=== PATIENT | male | born 1945 | race Caucasian/White ===

== ENCOUNTER 2016-10-10 18:12 | Inpatient (IN) | payer MEDICARE, MEDICAID ==
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
[2016-10-10 19:22] LABS: CHLORIDE,CL 106 mmol/L (98-115); SODIUM,NA 138 mmol/L (136-145)
[2016-10-10] MEDS ORDERED: methylPREDNISolone Sodium Succinate 125 MG/2 ML SDV IVPUSH ONE (19:26)
[2016-10-10] MEDS ORDERED: methylPREDNISolone Sodium Succinate 125 MG/2 ML SDV ONE (19:28)
[2016-10-10] MEDS ORDERED: cefTRIAXone 1 GM Vial IVPUSH ONE ×2 (19:39→20:14)
[2016-10-10] MEDS ORDERED: Azithromycin 500 MG in Sodium Chloride 0.9% 250 ML IV ONE ×2 (19:39→20:16)
[2016-10-10] MEDS ORDERED: Sodium Chloride 0.9% 1,000 ML IV ONE ×2 (19:41→20:24)
[2016-10-10] MEDS ORDERED: D5 1/2 NS w/ 20 mEq/L KCl 1,000 ML IV SCH (19:45)
[2016-10-10 19:47] LABS: BASE EXCESS ARTERIAL 5 mmol/L (-2-3); O2 DELIVERY DEVICE NASAL CANNULA; O2 SATURATION ARTERIAL 97 % (95-98); PCO2 ARTERIAL 44 mmHG (35-45); PO2 ARTERIAL 88 mmHG (80-105)
[2016-10-10] MEDS ORDERED: Albuterol HFA 18 Gm Inhaler INH PRN (20:05)
[2016-10-10] MEDS ORDERED: Albuterol/Ipratropium 4 GM Inhalation Spray INH PRN (20:05)
[2016-10-10] MEDS ORDERED: Nitroglycerin 0.4 MG Tab.SL SL PRN ×2 (20:05→22:13)
[2016-10-10] MEDS ORDERED: Docusate Sodium 100 MG Cap PO PRN (20:05)
[2016-10-10] MEDS ORDERED: Diphtheria,Pertussis(Acell),Tetanus Vaccine 0.5 ML SDV IM ONE (20:25)
[2016-10-10] MEDS: Carboxymethylcellulose Sodium 0.5% Ophth Soln 15 ML Bottle EYEBOTH SCH (21:41)
[2016-10-10] MEDS: tiZANidine 4 MG Tab PO SCH (21:42)
[2016-10-10] MEDS: traZODone 50 MG Tab PO SCH (21:42)
[2016-10-10] MEDS: Albuterol/Ipratropium 3.0-0.5 MG/3 ML Neb Soln NEB PRN (21:42)
[2016-10-10] MEDS: Sertraline 50 MG Tab PO SCH (21:42)
[2016-10-10] MEDS: Thiamine 100 MG Tab PO SCH (21:42)
[2016-10-10] MEDS: Montelukast 10 MG Tab PO SCH (21:42)
[2016-10-10] MEDS ORDERED: EPINEPHrine 1:10,000 1 MG/10 ML Syringe IVPUSH PRN (22:13)
[2016-10-10] MEDS ORDERED: Lidocaine 2% 100 MG/5 ML Syringe IVPUSH PRN (22:13)
[2016-10-10] MEDS ORDERED: Atropine 0.1 MG/ML 10 ML Syringe IVPUSH PRN (22:13)
[2016-10-10] MEDS: D5 1/2 NS w/ 20 mEq/L KCl 1,000 ML IV SCH (22:52)
[2016-10-10] MEDS: Acetaminophen 325 MG Tab PO PRN (22:53)
[2016-10-11] MEDS: Albuterol/Ipratropium 3.0-0.5 MG/3 ML Neb Soln NEB PRN (05:37)
[2016-10-11] MEDS: D5 1/2 NS w/ 20 mEq/L KCl 1,000 ML IV SCH (08:54)
[2016-10-11] MEDS ORDERED: Fluticasone/Vilanterol 200 MCG/25 MCG Inhalation Powder Kit of 14 IH SCH (09:00)
[2016-10-11] MEDS ORDERED: Calcium Citrate/Vitamin D3 315 MG-250 Unit Tab PO SCH (09:00)
[2016-10-11] MEDS ORDERED: Umeclidinium Bromide 62.5 MCG 30 Puff Inhaler IH SCH (09:00)
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
[2016-10-11] MEDS: Carboxymethylcellulose Sodium 0.5% Ophth Soln 15 ML Bottle EYEBOTH SCH ×3 (09:28→21:16)
[2016-10-11] MEDS: Calcium Citrate/Vitamin D3 315 MG-250 Unit Tab PO SCH (09:28)
[2016-10-11] MEDS: Multivitamins with Minerals/Iron/Folic Acid/Lycopene Tab PO SCH (09:28)
[2016-10-11] MEDS: Magnesium Oxide 500 MG Tab PO SCH (09:28)
[2016-10-11] MEDS ORDERED: Nicotine Polacrilex 4 MG Gum BUCCAL PRN (09:34)
[2016-10-11] MEDS: tiZANidine 4 MG Tab PO SCH ×3 (09:38→21:16)
[2016-10-11] MEDS ORDERED: Nicotine 21 MG/24 Hr Patch TRDERM SCH (10:45)
[2016-10-11] MEDS: Nicotine 21 MG/24 Hr Patch TRDERM SCH (10:47)
[2016-10-11] MEDS: Acetaminophen 325 MG Tab PO PRN (10:47)
[2016-10-11] MEDS: Potassium Bicarbonate/Potassium Chloride 25 MEQ Tab.Eff PO SCH ×2 (12:10→21:16)
[2016-10-11] MEDS ORDERED: Ibuprofen 200 MG Tab PO PRN (13:57)
[2016-10-11] MEDS: Albuterol/Ipratropium 3.0-0.5 MG/3 ML Neb Soln NEB SCH ×3 (15:39→21:59)
[2016-10-11] MEDS ORDERED: cefTRIAXone 1 GM Vial IVPUSH SCH (16:00)
[2016-10-11] MEDS: traZODone 50 MG Tab PO SCH (21:16)
[2016-10-11] MEDS: Montelukast 10 MG Tab PO SCH (21:16)
[2016-10-11] MEDS: Sertraline 50 MG Tab PO SCH (21:16)
[2016-10-11] MEDS: Thiamine 100 MG Tab PO SCH (21:16)
[2016-10-11] MEDS: Magnesium Hydroxide 400 MG/5 ML Susp 30 ML Cup PO PRN (21:23)
[2016-10-12] MEDS: Albuterol/Ipratropium 3.0-0.5 MG/3 ML Neb Soln NEB SCH ×4 (04:47→15:35)
[2016-10-12 08:03] LABS: CHLORIDE,CL 104 mmol/L (98-115); SODIUM,NA 142 mmol/L (136-145)
[2016-10-12] MEDS: Multivitamins with Minerals/Iron/Folic Acid/Lycopene Tab PO SCH (08:33)
[2016-10-12] MEDS: Nicotine 21 MG/24 Hr Patch TRDERM SCH (08:33)
[2016-10-12] MEDS: Calcium Citrate/Vitamin D3 315 MG-250 Unit Tab PO SCH (08:33)
[2016-10-12] MEDS: Carboxymethylcellulose Sodium 0.5% Ophth Soln 15 ML Bottle EYEBOTH SCH ×2 (08:34→15:09)
[2016-10-12] MEDS: tiZANidine 4 MG Tab PO SCH ×2 (08:34→15:35)
[2016-10-12] MEDS: Magnesium Oxide 500 MG Tab PO SCH (08:34)
[2016-10-12] MEDS: Potassium Bicarbonate/Potassium Chloride 25 MEQ Tab.Eff PO SCH (08:35)
[2016-10-12] MEDS ORDERED: Bisacodyl 10 MG Supp RECTAL ONE (09:19)
[2016-10-12] MEDS: Magnesium Hydroxide 400 MG/5 ML Susp 30 ML Cup PO PRN (10:23)
--- NOTE | 2016-10-12 10:51 | PCM.PRNOTE ---
- Free Text/Narrative Note: Cast applied lower extremity. Patient was educated for non-weightbearing, report any neurovascular compromise such as pain, discoloration of toes, cold toes,. Patient was instructed not to get wet, cast integrity instructions were given. He is to report to the ED if any of the above symptoms. Low-dose Coumadin was given for DVT prophylaxis His INR will be assessed at the [facility]. Her cast was applied patient did have normal capillary refill less than 3 seconds right toes. She tolerated procedure well. Patient gave verbal consent for cast application. He will need cast on approximately 3-4 weeks.
[2016-10-12] MEDS ORDERED: Umeclidinium Bromide 62.5 MCG 30 Puff Inhaler IH ONE (11:30)
[2016-10-12] MEDS ORDERED: Fluticasone/Vilanterol 200 MCG/25 MCG Inhalation Powder Kit of 14 IH ONE (11:30)
[2016-10-12 11:57] VITALS: BP 136/86
[2016-10-12] MEDS ORDERED: Ondansetron 4 MG/2 ML SDV IVPUSH ONE (14:51)
--- NOTE | 2016-10-13 08:15 | DISCH ---
FINAL DIAGNOSES: 1. Fracture of the distal fibula, minimally displaced, intra-articular. 2. Chronic obstructive pulmonary disease exacerbation, mild. 3. Medication noncompliance. 4. Rule out pneumonia, this has been ruled out. 5. Hypokalemia, now normal. 6. Tobacco dependency, not ready to quit. 7. Hernia, right inguinal, recurrent. HISTORY: This 71-year-old gentleman with history of COPD, who was initially admitted to the ED to rule out pneumonia. He did have a low-grade fever. He presented also with a right foot and ankle pain after falling from the 3rd rung of the ladder about a day prior to coming in. He was on his trailer doing some roof work. He did state that he put ice on his right ankle, and he laid around for about a day. He had significant swelling in that right ankle, painful upon ambulation. Initial x-rays were negative for any fractures; however, due to significant swelling, a CT was performed. It did show him to have a minimally displaced acute intra-articular fracture of the distal fibula. Those actual films were visualized by myself and Dr. Swati Edwards. HOSPITAL COURSE: Hospital course went quite well. Upon admission to the ED, he had a normal lactic acid level. Blood cultures were drawn, they have been negative so far. Sputum culture obtained and still pending. He did have a low- grade fever when he came in, however, was afebrile throughout his hospital stay. Although his chest x-ray showed no obvious infiltrates, he did have mild neutropenia. No reactive thrombocytosis, and he had normal white count. No fever. No increased mucus production or color. Sats were 95% on 1 L. We did continue with Rocephin each day. He most likely does not need antibiotics on discharge. He did not have shortness of breath. Pharmacy consultation indicated patient was severely noncompliant with his COPD and other medication. He was not taking his Singulair, he was taking DuoNebs about four or five times a day. He was not taking Incruse or Prolia. He stated his Prolia gave him dizziness. He did have mild hypokalemia, this was corrected, it was normal on discharge. The patient is a 135 pack-year smoker. He was on home oxygen for a while; however, he had to give that up since he continued to smoke, and he is allergic to nicotine patch, and he also states nicotine gum makes his lip swell. He did have some mild constipation, milk of magnesia was given twice a day along with Dulcolax suppository on discharge. He did complain of a recurrent possible inguinal hernia. The patient did have surgery approximately 5 to 6 months ago. He stated one month ago, he was lifting, induced some coughing, and he thinks his hernia may be back. This will be followed up on outpatient basis. It appears non strangulating and non reducible. A cast was replaced on his right foot prior to discharge. Cast care instructions were given. Swelling is much improved to now minimal. He had good distal pulses. No complications. SIGNIFICANT LABS XRAYS AND CONSULTATION FINDINGS: CT right ankle: Minimally displaced acute intra-articular fracture distal fibula. Chest x-ray: Flattened diaphragms, no obvious infiltrates. ABG: PH 7.43, CO2 of 44, PO2 of 88, bicarb 29. DISCHARGE MEDICATIONS: Milk of magnesia 30 mL p.o. b.i.d. for constipation, Singulair 10 mg at bedtime, Incruse 62.5 mcg daily. He can take his DuoNebs q.8 hours p.r.n. and his Breo Ellipta. We will place on Coumadin 2 mg p.o. daily while in cast to prevent DVTs. INR will be assessed as an outpatient status. The patient was given specific instructions to report any increase in pain, shortness of breath, any increasing cough. We will see him next week for followup. FOLLOW-UP RECOMMENDATIONS: Assess INR, assess potassium, assess medication compliance. The patient is to bring all his medicines in. We will check the integrity of his cast. I assessed the willingness of the patient to quit smoking, he is not willing to quit smoking at this time. MEDICAL DECISION MAKIN minutes was spent on this discharge planning and process. /[id number]/MODL
== END 2016-10-12 16:00 | disposition home or self-care (01) | DRG 563 ==
LOC: KA.ED 18:12 → UNDOADMIN 19:42 → KA.MS 19:42
PROVIDERS: ADMIT Physician Assistant Surgical; ATTEND Family Medicine
PROC: 2W3QX2Z Immobilization of Right Lower Leg using Cast (ICD-10-PCS; principal; 2016-10-12)
DX: S82.831A Other fracture of upper and lower end of right fibula, initial encounter for closed fracture (principal); J44.1 Chronic obstructive pulmonary disease with (acute) exacerbation; R09.02 Hypoxemia; F17.210 Nicotine dependence, cigarettes, uncomplicated; Z91.128 Patient's intentional underdosing of medication regimen for other reason; Z91.14 Patient's other noncompliance with medication regimen; W11.XXXA Fall on and from ladder, initial encounter; Y92.029 Unspecified place in mobile home as the place of occurrence of the external cause; K40.91 Unilateral inguinal hernia, without obstruction or gangrene, recurrent; R50.9 Fever, unspecified; E87.6 Hypokalemia; F32.9 Major depressive disorder, single episode, unspecified; M19.90 Unspecified osteoarthritis, unspecified site; H54.7 Unspecified visual loss; K59.09 Other constipation; Z79.01 Long term (current) use of anticoagulants; Z88.1 Allergy status to other antibiotic agents; Z88.8 Allergy status to other drugs, medicaments and biological substances
CPT/HCPCS: 36415; 36600; 71020; 73610; 73620; 80048; 82803; 83605; 85025; 87040 ×2; 96374; 99285; J2930; 73700-RT; 81001; 87070; 87205; 90715; 94640; A9270-GY; J0456; J0696; J2405; J3480; J7030; J7050

== ENCOUNTER 2016-10-16 12:35 | Emergency (ER) | payer MEDICARE, MEDICAID ==
[2016-10-16 12:52] VITALS: BP 129/73
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
== END 2016-10-16 13:20 | disposition home or self-care (01) ==
LOC: KA.ED 12:35
DX: S82.831S Other fracture of upper and lower end of right fibula, sequela (principal); H54.7 Unspecified visual loss; J44.9 Chronic obstructive pulmonary disease, unspecified; F32.9 Major depressive disorder, single episode, unspecified; F17.210 Nicotine dependence, cigarettes, uncomplicated; M19.90 Unspecified osteoarthritis, unspecified site; Z79.899 Other long term (current) drug therapy; Z88.1 Allergy status to other antibiotic agents; Z91.048 Other nonmedicinal substance allergy status; Z79.01 Long term (current) use of anticoagulants; W11.XXXS Fall on and from ladder, sequela
CPT/HCPCS: 99282

== ENCOUNTER 2016-12-01 15:02 | Inpatient (IN) | payer MEDICARE, MEDICAID ==
[2016-12-01] MEDS ORDERED: Sodium Chloride 0.9% 5 ML Syringe FLUSH PRN (15:59)
[2016-12-01 16:58] LABS: O2 DELIVERY DEVICE NASAL CANNULA; PCO2 ARTERIAL 40 mmHG (35-45)
[2016-12-01 16:59] LABS: BASE EXCESS ARTERIAL 7 mmol/L (-2-3); BICARBONATE,ARTERIAL 30.1 mmol/L (22-26); O2 SATURATION ARTERIAL 91 % (95-98); PO2 ARTERIAL 57 mmHG (80-105)
[2016-12-01] MEDS ORDERED: Nitroglycerin 0.4 MG Tab.SL SL PRN (17:39)
[2016-12-01] MEDS ORDERED: Docusate Sodium 100 MG Cap PO PRN (17:39)
[2016-12-01] MEDS: predniSONE 20 MG Tab PO SCH (18:11)
[2016-12-01] MEDS: Omeprazole 20 MG Cap.CR PO SCH (18:11)
[2016-12-01] MEDS: cefTRIAXone 1 GM Vial IVPUSH SCH (18:12)
[2016-12-01] MEDS: Albuterol/Ipratropium 3.0-0.5 MG/3 ML Neb Soln NEB SCH ×2 (18:33→20:53)
[2016-12-01] MEDS: tiZANidine 4 MG Tab PO SCH (21:08)
[2016-12-01] MEDS: Acetaminophen 325 MG Tab PO SCH (21:08)
[2016-12-01] MEDS: Montelukast 10 MG Tab PO SCH (21:08)
[2016-12-01] MEDS: Thiamine 100 MG Tab PO SCH (21:08)
[2016-12-01] MEDS: Sertraline 50 MG Tab PO SCH (21:08)
[2016-12-02] MEDS: Albuterol/Ipratropium 3.0-0.5 MG/3 ML Neb Soln NEB SCH ×4 (00:55→14:40)
[2016-12-02] MEDS: cefTRIAXone 1 GM Vial IVPUSH SCH ×2 (05:52→11:49)
[2016-12-02] MEDS: Omeprazole 20 MG Cap.CR PO SCH (08:22)
[2016-12-02] MEDS: Multivitamins with Minerals/Iron/Folic Acid/Lycopene Tab PO SCH (08:22)
[2016-12-02] MEDS: Acetaminophen 325 MG Tab PO SCH ×2 (08:22→20:03)
[2016-12-02] MEDS: tiZANidine 4 MG Tab PO SCH ×3 (08:22→20:12)
[2016-12-02] MEDS: predniSONE 20 MG Tab PO SCH (08:23)
[2016-12-02] MEDS ORDERED: Folic Acid 1 MG Tab PO SCH (09:00)
[2016-12-02] MEDS: Magnesium Oxide 500 MG Tab PO SCH (09:16)
[2016-12-02] MEDS ORDERED: Sodium Chloride 0.9% 1,000 ML IV SCH (11:15)
[2016-12-02] MEDS: Arformoterol 15 MCG/2 ML Neb Soln NEB SCH ×2 (11:24→19:31)
[2016-12-02] MEDS: Budesonide 0.5 MG/2 ML Neb Susp NEB SCH ×2 (11:51→20:02)
[2016-12-02] MEDS ORDERED: Albuterol/Ipratropium 3.0-0.5 MG/3 ML Neb Soln NEB PRN (14:00)
--- NOTE | 2016-12-02 16:01 | PN ---
12/02/2016PATIENT NAME: BHARATI MARTE CHIEF COMPLAINT: Overall feels much better. Breathing better, however, still has considerable amount of sputum. HISTORY: A 71-year-old gentleman, who I admitted yesterday from [facility], came in with increased shortness of breath, right-sided chest pain, increase in mucous production and consistency and color. Above his baseline, he does have longstanding COPD, current [id number] history of smoker. He had recently been discharged from the hospital about a month ago for COPD exacerbation. He was placed on Incruse along with Breo Ellipta, however, the patient has had some side effects of this. He only took a few doses at home. He has not refilled this. He basically has been taken taking DuoNebs about five times a day along with Combivent two or three times a day. He does ride his bike around town, however, he has not ridden as much due to increase in shortness of breath. He is a current smoker. He has had extensive education in the past regarding his medication, he does get his medications paid for by an indemnity service in [facility]. On admission, ABG was performed shows pH of 7.49, pCO2 of 40, pO2 of 57 with bicarb elevated at 30. This was on nasal cannula. Chest x-ray was performed yesterday, I do not have the official interpretation, however, wet read by myself did not see any significant infiltrates, however, flattening of the diaphragms, may be a slight small pleural effusion with increase in cephalization and some end-on vessels elongated heart noted. LABORATORY DATA: Labs yesterday at [facility]: White count 10.9, neutrophils percentage is slightly elevated at 77, glucose 119. Sodium and potassium are normal. CO2 slightly elevated at 33, however, anion gap was normal. BUN and creatinine are normal. Normal liver functions. REVIEW OF SYSTEMS: HEENT: Mild sore throat when he takes his home medications. Pulmonary: Shortness of breath with increased mucous production. CARDIOVASCULAR: Denies any edema, syncope, blood pressure problems, orthopnea, or chest pain. GI: Denies any anorexia or black stool, however, he does have pain in his right groin from a recurrent hernia and this was recently mesh-placed, however, no vomiting. No nausea. This is easily reducible, non-strangulating. MUSCULOSKELETAL: Denies any muscle pains. SKIN: Denies pallor. PSYCHIATRIC: Denies any confusion or dizziness. HEMATOLOGIC: Does bleed easy. Recently, yesterday, removed off prednisone due to DVT prophylaxis while in the cast, however, the cast has been removed. PHYSICAL EXAMINATION: VITAL SIGNS: Temperature 97.9, O2 sats 94%, this is room air, however, he has required 1-2 L throughout the night. CONSTITUTIONAL: Alert and oriented to time and place. No distress this morning. Thin in appearance. Tripod stance to breathe. NECK: Supple. CV: Normal rate and rhythm. Normal heart tones. No S3. No murmur. CHEST: Fair pulmonary excursion. AP diameter 2:1. He does have some wheezes noted. Left upper anterior end-expiratory, however, overall decreased breath sounds. No rhonchi. ABDOMEN: Bowel sounds are normal. He does have a right inguinal hernia, moderate in size, slightly reducible, mesh palpable, this would have to be corrected, non-strangulating at this time. MUSCULOSKELETAL: Exhibits no edema. IMPRESSION AND PLAN: 1. Acute exacerbation of chronic obstructive pulmonary disease, reduce Rocephin, continue on DuoNebs, continue with oral prednisone 40 mg daily, however, will be given Pulmicort today along with Brovana, to increase in patient compliance this could be mixed together at home (reduction of only 2% efficacy. Discontinue him off the Breo Ellipta along with the Incruse due to noncompliance. See overall discharge plan below. He is on Singulair 10 mg p.o. daily. 2. Acute metabolic alkalosis with a normal CO2 level, so acute in nature. Appears it is bicarb deviates mostly from normal baseline along with concomitant hypoxia. Renal excretion appears normal. I doubt he has any GI pathology. He is a little dehydrated, so we will continue with saline and monitor electrolytes. This most likely will have to be repeated this weekend. 3. Acute bronchitis, continue with Rocephin. 4. Smoking addiction. The patient is intolerant to Nicorette gum and transdermal patch. He is an ongoing smoker. He has been counseled extensively regarding the need to quit. 5. Recurrent right inguinal hernia without obstruction or gangrene, easily reducible. Splinting measures provided. Nursing will also place pelvic girdle on the patient. This will need to be corrected within the next week or two. He will be set up on the OR schedule eventually upon giving him fully optimized. 6. GI stress prophylaxis, added PPI therapy since on NSAIDs. 7. Discharge plan. If the patient is discharged over the next 48 hours, recommend the following pharmacological home treatment regimen. Add Pulmicort and Brovana, mix together. Combivent as needed, DuoNebs decreased as needed, discontinue Incruse and Breo Ellipta, discontinue smoking. /[id number]/MODL MTDD
[2016-12-02] MEDS: Thiamine 100 MG Tab PO SCH (20:03)
[2016-12-02] MEDS: Montelukast 10 MG Tab PO SCH (20:03)
[2016-12-02] MEDS: Sertraline 50 MG Tab PO SCH (20:05)
[2016-12-03] MEDS: Omeprazole 20 MG Cap.CR PO SCH (06:10)
[2016-12-03 07:44] LABS: CHLORIDE,CL 103 mmol/L (98-115); SODIUM,NA 140 mmol/L (136-145)
[2016-12-03] MEDS: Multivitamins with Minerals/Iron/Folic Acid/Lycopene Tab PO SCH (08:09)
[2016-12-03] MEDS: Magnesium Oxide 500 MG Tab PO SCH (08:09)
[2016-12-03] MEDS: Folic Acid 1 MG Tab PO SCH (08:09)
[2016-12-03] MEDS: Arformoterol 15 MCG/2 ML Neb Soln NEB SCH ×2 (08:09→19:34)
[2016-12-03] MEDS: Budesonide 0.5 MG/2 ML Neb Susp NEB SCH ×2 (08:09→20:35)
[2016-12-03] MEDS: predniSONE 20 MG Tab PO SCH (08:10)
[2016-12-03] MEDS: Acetaminophen 325 MG Tab PO SCH ×2 (08:10→20:36)
[2016-12-03] MEDS: tiZANidine 4 MG Tab PO SCH ×3 (08:10→20:35)
[2016-12-03] MEDS ORDERED: Benzonatate 100 MG Cap PO PRN (09:07)
--- NOTE | 2016-12-03 09:15 | PCM.PN ---
- General Info Date of Service: 12/03/16 Functional Status: Reports: Pain Controlled, Tolerating Diet, Ambulating, Urinating, Incentive Spirometry - Review of Systems General: Denies: Fever, Chills HEENT: Reports: Sinus Congestion. Denies: Headaches Pulmonary: Reports: Shortness of Breath (improving), Cough (frequent), Sputum ( thick green), Other (Left-sided rib pain with coughing) Cardiovascular: Reports: Dyspnea on Exertion. Denies: Chest Pain, Edema Gastrointestinal: Reports: Abdominal Pain ([id number] present), Constipation (last BM yesterday, but reports it was hard). Denies: Decreased Appetite Genitourinary: Reports: No Symptoms Neurological: Denies: Headache - Patient Data Vitals - Most Recent: Last Vital Signs Temp 97.6 F 12/03/16 05:05 Pulse 64 12/03/16 05:05 Resp 18 12/03/16 05:05 BP 140/75 12/03/16 05:05 Pulse Ox 93 L 12/03/16 05:05 Weight - Most Recent: 119 lb 1.6 oz I&O - Last 24 Hours: Intake & Output 12/02/16 12/03/16 12/03/16 22:59 06:59 14:59 Intake Total 1080 980 Balance 1080 980 Lab Results Last 24 Hours: Laboratory Results - last 24 hr 12/03/16 12/03/16 Range/Units 07:15 07:15 WBC 14.9 H (5.0-10.0) 10^3/uL RBC 3.74 L (4.50-6.00) 10^6/uL Hgb 13.0 (13.0-17.0) g/dL Hct 38.9 L (40.0-52.0) % MCV 104.1 H (82.0-92.0) fL MCH 34.8 H (27.0-31.0) pg MCHC 33.4 (32.0-36.0) g/dL RDW 12.5 (11.5-14.5) % Plt Count 322 H (150-300) 10^3/uL MPV 6.5 L (7.4-10.4) fL Neut % (Auto) 75.5 H (50.0-70.0) % Lymph % (Auto) 17.2 L (20.0-40.0) % [place] % (Auto) 6.4 (2.0-8.0) % Eos % (Auto) 0.5 L (1.0-3.0) % Baso % (Auto) 0.4 (0.0-1.0) % Neut # (Auto) 11.1 H (2.5-7.0) 10^3/uL Lymph # (Auto) 2.6 (1.0-4.0) 10^3/uL [place] # (Auto) 1.0 H (0.1-0.8) 10^3/uL Eos # (Auto) 0.1 (0.1-0.3) 10^3/uL Baso # (Auto) 0.1 (0.0-0.1) 10^3/uL Sodium 140 (136-145) mmol/L Potassium 5.0 (3.3-5.3) mmol/L Chloride 103 (98-115) mmol/L Carbon Dioxide 33.4 H (21.0-32.0) mmol/L BUN 14 (6-25) mg/dL Creatinine 0.58 (0.51-1.17) mg/dL Est Cr Clr Drug Dosing 91.85 mL/min Estimated GFR (MDRD) > 60 mL/min Glucose 105 (70-110) mg/dL Calcium 8.8 (8.7-10.3) mg/dL Med Orders - Current: Current Medications Acetaminophen (Tylenol) 650 mg PO BID [facility] Last Admin: 12/03/16 08:10 Dose: 650 mg Albuterol/Ipratropium (Duoneb 3.0-0.5 Mg/3 Ml) 3 ml NEB Q6HRRT PRN PRN Reason: wheezing; Shortness of breath Arformoterol Tartrate (Brovana) 15 mcg NEB BIDRT [facility] Last Admin: 12/03/16 08:09 Dose: 15 mcg Benzonatate (Tessalon Perles) 200 mg PO TID PRN PRN Reason: Cough Budesonide (Pulmicort) 0.5 mg NEB BIDRT [facility] Last Admin: 12/03/16 08:09 Dose: 0.5 mg Ceftriaxone Sodium (Rocephin) 1 gm IVPUSH Q24H [facility] Last Admin: 12/02/16 11:49 Dose: 1 gm Docusate Sodium (Colace) 100 mg PO BID [facility] Folic Acid (Folic Acid) 0.5 mg PO DAILY [facility] Last Admin: 12/03/16 08:09 Dose: 0.5 mg Azithromycin 500 mg/ Sodium (Chloride) 250 mls @ 250 mls/hr IV Q24H [facility] Sodium Chloride (Normal Saline) 1,000 mls @ 50 mls/hr IV ASDIRECTED [facility] Magnesium Oxide (Magnesium Oxide) 250 mg PO DAILY [facility] Last Admin: 12/03/16 08:09 Dose: 250 mg Montelukast Sodium (Singulair) 10 mg PO BEDTIME [facility] Last Admin: 12/02/16 20:03 Dose: 10 mg Multivitamins/Minerals (Centrum) 1 tab PO DAILY [facility] Last Admin: 12/03/16 08:09 Dose: 1 tab Naproxen (Naproxen Sodium) 220 mg PO DAILY [facility] Last Admin: 12/03/16 08:10 Dose: 220 mg Nitroglycerin (Nitrostat) 0.4 mg SL Q5M PRN PRN Reason: Chest Pain Omeprazole (Omeprazole) 20 mg PO ACBREAKFAST [facility] Last Admin: 12/03/16 06:10 Dose: 20 mg Prednisone (Prednisone) 40 mg PO DAILY [facility] Last Admin: 12/03/16 08:10 Dose: 40 mg Sertraline HCl (Zoloft) 100 mg PO BEDTIME [facility] Last Admin: 12/02/16 20:05 Dose: 100 mg Sodium Chloride (Syrex Flush) 5 ml FLUSH Q8HR PRN PRN Reason: Keep Vein Open Thiamine HCl (Vitamin B-1) 100 mg PO BEDTIME [facility] Last Admin: 12/02/16 20:03 Dose: 100 mg Tizanidine HCl (Zanaflex) 4 mg PO TID [facility] Last Admin: 12/03/16 08:10 Dose: 4 mg Discontinued Medications Albuterol/Ipratropium (Duoneb 3.0-0.5 Mg/3 Ml) 3 ml NEB Q4HRRT [facility] Last Admin: 12/02/16 14:40 Dose: Not Given Ceftriaxone Sodium (Rocephin) 1 gm IVPUSH Q12H [facility] Last Admin: 12/02/16 05:52 Dose: 1 gm Docusate Sodium (Colace) 100 mg PO DAILY PRN PRN Reason: Constipation Last Admin: 12/02/16 08:32 Dose: 100 mg Folic Acid (Folic Acid) 0.4 mg PO DAILY [facility] Last Admin: 12/02/16 08:23 Dose: 0.4 mg Sodium Chloride (Normal Saline) 1,000 mls @ 62 mls/hr IV ASDIRECTED [facility] Last Admin: 12/02/16 20:01 Dose: 62 mls/hr Omeprazole (Omeprazole) 20 mg PO DAILY [facility] Last Admin: 12/02/16 08:22 Dose: 20 mg - Exam Quality Assessment: DVT Prophylaxis (score of 6-placed on lovenox). No: Supplemental Oxygen (93% on room air) General: Alert, Oriented, Cooperative, No Acute Distress Lungs: Normal Respiratory Effort, Decreased Breath Sounds (throughout lung anderson), Crackles (faint crackles to left lower lobe), Wheezing (expiratory wheezes to right lung anderson). No: Rhonchi, Stridor Cardiovascular: Regular Rate, Regular Rhythm, No Murmurs GI/Abdominal Exam: Normal Bowel Sounds, Soft, No Distention, Hernia (right-sided -girdle on) Extremities: No Pedal Edema Skin: Warm, Dry Neurological: Normal Speech Psy/Mental Status: Alert, Normal Affect, Normal Mood. No: Anxious - Problem List Review Problem List Initiated/Reviewed/Updated: Yes - My Orders Last 24 Hours: My Active Orders 12/03/16 09:07 Benzonatate [Tessalon Perles] 200 mg PO TID PRN 12/03/16 09:08 CULTURE SPUTUM + SMEAR [RM] Routine 12/03/16 09:15 Azithromycin [Zithromax] 500 mg Sodium Chloride 0.9% [Normal Saline] 250 ml IV Q24H Docusate Sodium [Colace] 100 mg PO BID Sodium Chloride 0.9% @ 50 MLS/HR(1000ml) Sodium Chloride 0.9% [Normal Saline] 1 ,000 ml IV ASDIRECTED - Plan Plan:: PRIMARY ASSESSMENT/PLAN: Left lingulair pneumonia, community acquired. Preliminary chest x-ray report from admission revealed "There appears to be a lingulair infiltrate new since the prior study. Right lung is clear. It appears some developing pneumonia. Heart size normal. No pulmonary edema." Continue IV rocephin. Will add azithromycin 500 mg IV daily (patient allergic to fluoroquinolones). WBC 14.9 with left shift, however patient is on prednisone 40 mg daily. Sputum sample ordered. Incentive spirometry at bedside. Continue duonebs QID PRN, pulmicort and brovana nebs BID. Will check CRP level today, should be able to observe this trending down as pneumonia improves. Acute COPD exacerbation, improving. See above plan. Acute metabolic alkalosis. Renal excretion normal with GFR > 60. K 5.0, Na 140. Overall intake in 24 hours was around 2370. Decrease IV fluids to 50 mL/hr of normal saline. Repeat BMP in AM. Will consider repeat ABG tomorrow. Constipation. Change colace to 100 mg po BID. Anemia, macrocytic hyperchromic, normal RDW. Patient is on folic acid daily. Will workup further with TSH, B12, and folate RBC level. Will need to assess patient's alcohol intake as well. SECONDARY ASSESSMENT/PLAN: Tobacco abuse disorder. The patient is intolerant to nicotine gum or the transdermal patch. He has been counseled several times to quit, but continues to smoke. Recurrent right inguinal hernia without obstruction or gangrene. Patient in pelvic girdle. He will need this corrected as soon as he is able to undergo surgical procedure. GI prophylaxis. Continue omeprazole. DVT prophylaxis. Score of 6. Lovenox 40 mg daily added. Overall plan: Continue to monitor respiratory status. Collect sputum sample. Azithromycin IV added and will continue with rocephin IV. Continue nebulized medications.
[2016-12-03] MEDS: Azithromycin 500 MG in Sodium Chloride 0.9% 250 ML IV SCH (09:46)
[2016-12-03] MEDS: Enoxaparin 40 MG/0.4 ML Syringe SUBCUT SCH (09:48)
[2016-12-03] MEDS: Docusate Sodium 100 MG Cap PO SCH ×2 (09:49→20:36)
[2016-12-03] MEDS: Sodium Chloride 0.9% 1,000 ML IV SCH (11:30)
[2016-12-03] MEDS: cefTRIAXone 1 GM Vial IVPUSH SCH (11:30)
[2016-12-03] MEDS: Thiamine 100 MG Tab PO SCH (20:35)
[2016-12-03] MEDS: Sertraline 50 MG Tab PO SCH (20:35)
[2016-12-03] MEDS: Montelukast 10 MG Tab PO SCH (20:35)
[2016-12-04] MEDS: Omeprazole 20 MG Cap.CR PO SCH (06:07)
[2016-12-04] MEDS: Arformoterol 15 MCG/2 ML Neb Soln NEB SCH ×2 (07:38→19:37)
[2016-12-04] MEDS: Sodium Chloride 0.9% 1,000 ML IV SCH (07:41)
[2016-12-04] MEDS: Budesonide 0.5 MG/2 ML Neb Susp NEB SCH ×2 (07:42→20:19)
[2016-12-04 07:46] LABS: CHLORIDE,CL 102 mmol/L (98-115); SODIUM,NA 138 mmol/L (136-145)
[2016-12-04] MEDS: Multivitamins with Minerals/Iron/Folic Acid/Lycopene Tab PO SCH (09:40)
[2016-12-04] MEDS: Magnesium Oxide 500 MG Tab PO SCH (09:40)
[2016-12-04] MEDS: Levothyroxine 25 MCG Tab PO SCH (09:40)
[2016-12-04] MEDS: Folic Acid 1 MG Tab PO SCH (09:40)
[2016-12-04] MEDS: Azithromycin 500 MG in Sodium Chloride 0.9% 250 ML IV SCH (09:41)
[2016-12-04] MEDS: tiZANidine 4 MG Tab PO SCH ×3 (09:41→20:20)
[2016-12-04] MEDS: predniSONE 20 MG Tab PO SCH (09:46)
[2016-12-04] MEDS: Acetaminophen 325 MG Tab PO SCH ×2 (09:50→20:20)
[2016-12-04] MEDS: Enoxaparin 40 MG/0.4 ML Syringe SUBCUT SCH (09:50)
[2016-12-04] MEDS: Docusate Sodium 100 MG Cap PO SCH ×2 (09:50→20:20)
--- NOTE | 2016-12-04 09:56 | PCM.PN ---
- General Info Date of Service: 12/04/16 Functional Status: Reports: Pain Controlled, Tolerating Diet, Ambulating, Urinating, Incentive Spirometry. Denies: New Symptoms - Review of Systems General: Denies: Fever HEENT: Reports: Other (Dry throat). Denies: Headaches Pulmonary: Reports: Cough, Sputum. Denies: Shortness of Breath Cardiovascular: Denies: Chest Pain Gastrointestinal: Denies: Constipation, Decreased Appetite, Diarrhea - Patient Data Vitals - Most Recent: Last Vital Signs Temp 97.5 F 12/04/16 05:50 Pulse 67 12/04/16 05:50 Resp 18 12/04/16 05:50 BP 145/91 H 12/04/16 05:50 Pulse Ox 94 L 12/04/16 05:50 Weight - Most Recent: 119 lb 1.6 oz I&O - Last 24 Hours: Intake & Output 12/03/16 12/04/16 12/04/16 22:59 06:59 14:59 Intake Total 764 708 Balance 764 708 Lab Results Last 24 Hours: Laboratory Results - last 24 hr 12/04/16 Range/Units 07:05 Sodium 138 (136-145) mmol/L Potassium 4.2 (3.3-5.3) mmol/L Chloride 102 (98-115) mmol/L Carbon Dioxide 32.4 H (21.0-32.0) mmol/L BUN 15 (6-25) mg/dL Creatinine 0.56 (0.51-1.17) mg/dL Est Cr Clr Drug Dosing 95.13 mL/min Estimated GFR (MDRD) > 60 mL/min Glucose 95 (70-110) mg/dL Calcium 8.7 (8.7-10.3) mg/dL TSH, Ultra Sensitive 7.770 H (0.340-4.820) uIU/mL Med Orders - Current: Current Medications Acetaminophen (Tylenol) 650 mg PO BID [facility] Last Admin: 12/03/16 20:36 Dose: 650 mg Albuterol/Ipratropium (Duoneb 3.0-0.5 Mg/3 Ml) 3 ml NEB Q6HRRT PRN PRN Reason: wheezing; Shortness of breath Arformoterol Tartrate (Brovana) 15 mcg NEB BIDRT [facility] Last Admin: 12/04/16 07:38 Dose: 15 mcg Benzonatate (Tessalon Perles) 200 mg PO TID PRN PRN Reason: Cough Budesonide (Pulmicort) 0.5 mg NEB BIDRT [facility] Last Admin: 12/04/16 07:42 Dose: 0.5 mg Ceftriaxone Sodium (Rocephin) 1 gm IVPUSH Q24H [facility] Last Admin: 12/03/16 11:30 Dose: 1 gm Docusate Sodium (Colace) 100 mg PO BID [facility] Last Admin: 12/03/16 20:36 Dose: 100 mg Enoxaparin Sodium (Lovenox) 40 mg SUBCUT DAILY [facility] Last Admin: 12/03/16 09:48 Dose: 40 mg Folic Acid (Folic Acid) 0.5 mg PO DAILY [facility] Last Admin: 12/04/16 09:40 Dose: 0.5 mg Azithromycin 500 mg/ Sodium (Chloride) 250 mls @ 250 mls/hr IV Q24H [facility] Last Admin: 12/04/16 09:41 Dose: 250 mls/hr Levothyroxine Sodium (Levothyroxine) 25 mcg PO ACBREAKFAST [facility] Last Admin: 12/04/16 09:40 Dose: 25 mcg Magnesium Oxide (Magnesium Oxide) 250 mg PO DAILY [facility] Last Admin: 12/04/16 09:40 Dose: 250 mg Montelukast Sodium (Singulair) 10 mg PO BEDTIME [facility] Last Admin: 12/03/16 20:35 Dose: 10 mg Multivitamins/Minerals (Centrum) 1 tab PO DAILY [facility] Last Admin: 12/04/16 09:40 Dose: 1 tab Naproxen (Naproxen Sodium) 220 mg PO DAILY [facility] Last Admin: 12/04/16 09:41 Dose: 220 mg Nitroglycerin (Nitrostat) 0.4 mg SL Q5M PRN PRN Reason: Chest Pain Omeprazole (Omeprazole) 20 mg PO ACBREAKFAST [facility] Last Admin: 12/04/16 06:07 Dose: 20 mg Prednisone (Prednisone) 30 mg PO WITHBREAKFAST [facility] Sertraline HCl (Zoloft) 100 mg PO BEDTIME [facility] Last Admin: 12/03/16 20:35 Dose: 100 mg Sodium Chloride (Syrex Flush) 5 ml FLUSH Q8HR PRN PRN Reason: Keep Vein Open Thiamine HCl (Vitamin B-1) 100 mg PO BEDTIME [facility] Last Admin: 12/03/16 20:35 Dose: 100 mg Tizanidine HCl (Zanaflex) 4 mg PO TID [facility] Last Admin: 12/04/16 09:41 Dose: 4 mg Discontinued Medications Albuterol/Ipratropium (Duoneb 3.0-0.5 Mg/3 Ml) 3 ml NEB Q4HRRT [facility] Last Admin: 12/02/16 14:40 Dose: Not Given Ceftriaxone Sodium (Rocephin) 1 gm IVPUSH Q12H [facility] Last Admin: 12/02/16 05:52 Dose: 1 gm Docusate Sodium (Colace) 100 mg PO DAILY PRN PRN Reason: Constipation Last Admin: 12/02/16 08:32 Dose: 100 mg Folic Acid (Folic Acid) 0.4 mg PO DAILY [facility] Last Admin: 12/02/16 08:23 Dose: 0.4 mg Sodium Chloride (Normal Saline) 1,000 mls @ 62 mls/hr IV ASDIRECTED [facility] Last Admin: 12/02/16 20:01 Dose: 62 mls/hr Sodium Chloride (Normal Saline) 1,000 mls @ 50 mls/hr IV ASDIRECTED [facility] Last Admin: 12/04/16 07:41 Dose: 50 mls/hr Omeprazole (Omeprazole) 20 mg PO DAILY [facility] Last Admin: 12/02/16 08:22 Dose: 20 mg Prednisone (Prednisone) 40 mg PO DAILY [facility] Last Admin: 12/04/16 09:46 Dose: 40 mg - Exam Quality Assessment: DVT Prophylaxis (Lovenox). No: Supplemental Oxygen General: Alert, Oriented, Cooperative, No Acute Distress Lungs: Normal Respiratory Effort, Decreased Breath Sounds (throughout). No: Crackles, Rhonchi, Wheezing Cardiovascular: Regular Rate, Regular Rhythm, No Murmurs Skin: Warm, Dry Neurological: Normal Speech Psy/Mental Status: Alert, Normal Affect, Normal Mood. No: Anxious - Problem List Review Problem List Initiated/Reviewed/Updated: Yes - My Orders Last 24 Hours: My Active Orders 12/03/16 09:00 Azithromycin [Zithromax] 500 mg Sodium Chloride 0.9% [Normal Saline] 250 ml IV Q24H 12/03/16 09:07 Benzonatate [Tessalon Perles] 200 mg PO TID PRN 12/03/16 09:15 Docusate Sodium [Colace] 100 mg PO BID Enoxaparin [Lovenox] 40 mg SUBCUT DAILY 12/04/16 07:00 Levothyroxine 25 mcg PO ACBREAKFAST 12/04/16 07:05 FOLATE, RBC [REF] Routine VITAMIN B12 [REF] Routine 12/04/16 08:00 CULTURE SPUTUM + SMEAR [RM] Routine 12/04/16 09:48 Up ad Bess [RC] ASDIRECTED 12/05/16 08:00 predniSONE 30 mg PO WITHBREAKFAST - Plan Plan:: PRIMARY ASSESSMENT/PLAN: Left lingulair pneumonia, community acquired. CRP 2.5 yesterday. Repeat CRP in AM as if this is trending down there should be improvement in pneumonia. Clinically patient appears to be much improved. Continue IV rocephin and azithromycin. Sputum sample collected and pending. Decrease prednisone to 30 mg po for tomorrow's dose. Continue incentive spirometry. Patient not requiring oxygen. Continue nebulizer treatments. Acute COPD exacerbation, improving. See above plan. Acute metabolic alkalosis. CO2 down to 32.4. BUN 15, creatinine 0.56, GFR > 60. Overall oral intake around 1140 in past 24 hours. Saline lock. Constipation, improved. Continue colace BID. Anemia, macrocytic hyperchromic, normal RDW. TSH elevated at 7.77. B12 and folate RBC pending. Patient is on daily folic acid. Patient reportedly uses alcohol of 1 drink 2 days per week. Hypothyroidism. TSH elevated. Start levothyroxine 25 mcg po daily. Will need to have this rechecked in 6-8 weeks as outpatient. Patient educated on disease process, medication, and monitoring. SECONDARY ASSESSMENT/PLAN: Tobacco abuse disorder. The patient is intolerant to nicotine gum or the transdermal patch. He has been counseled several times to quit, but continues to smoke. Recurrent right inguinal hernia without obstruction or gangrene. Patient in pelvic girdle. He will need this corrected as soon as he is able to undergo surgical procedure. GI prophylaxis. Continue omeprazole. DVT prophylaxis. Score of 6. Continue lovenox daily. Overall plan: Continue with IV antibiotics. Patient is to be up in the halls walking today and nursing is to monitor respiratory status. He will most likely be able to be discharged home tomorrow.
[2016-12-04] MEDS: cefTRIAXone 1 GM Vial IVPUSH SCH (11:30)
[2016-12-04] MEDS: Sertraline 50 MG Tab PO SCH (20:20)
[2016-12-04] MEDS: Montelukast 10 MG Tab PO SCH (20:20)
[2016-12-04] MEDS: Thiamine 100 MG Tab PO SCH (20:20)
[2016-12-05] MEDS: Levothyroxine 25 MCG Tab PO SCH (06:12)
[2016-12-05] MEDS: Omeprazole 20 MG Cap.CR PO SCH (06:12)
[2016-12-05 06:39] VITALS: BP 124/72
[2016-12-05] MEDS: Arformoterol 15 MCG/2 ML Neb Soln NEB SCH (07:01)
[2016-12-05] MEDS: Budesonide 0.5 MG/2 ML Neb Susp NEB SCH (07:30)
[2016-12-05] MEDS ORDERED: predniSONE 10 MG Tab PO SCH (08:00)
[2016-12-05] MEDS: Magnesium Oxide 500 MG Tab PO SCH (08:11)
[2016-12-05] MEDS: Docusate Sodium 100 MG Cap PO SCH (08:12)
[2016-12-05] MEDS: Multivitamins with Minerals/Iron/Folic Acid/Lycopene Tab PO SCH (08:12)
[2016-12-05] MEDS: Folic Acid 1 MG Tab PO SCH (08:12)
[2016-12-05] MEDS: Acetaminophen 325 MG Tab PO SCH (08:13)
[2016-12-05] MEDS: tiZANidine 4 MG Tab PO SCH (08:13)
[2016-12-05] MEDS: Enoxaparin 40 MG/0.4 ML Syringe SUBCUT SCH (08:13)
[2016-12-05] MEDS: Azithromycin 500 MG in Sodium Chloride 0.9% 250 ML IV SCH (09:32)
[2016-12-05] MEDS: cefTRIAXone 1 GM Vial IVPUSH SCH (11:03)
--- NOTE | 2016-12-06 08:06 | DISCH ---
FINAL DIAGNOSES: 1. Left lingular pneumonia community acquired with acute chronic obstructive pulmonary disease exacerbation. 2. Acute metabolic alkalosis. 3. Constipation. 4. Anemia, macrocytic, hyperchromic, normal RDW. 5. Subclinical hypoparathyroidism. 6. Recurrent right inguinal hernia without obstruction or gangrene. 7. Tobacco abuse. BRIEF HISTORY: This 71-year-old gentleman whom I admitted from the [facility] due to increased shortness of breath, right-sided chest pain, increase in mucous production in consistency and color, well above his baseline. He is an ongoing smoker with a current 135 pack-year history. He had recently been discharged from the hospital about a month prior to this recent admission for COPD exacerbation. At that time, he was placed on Incruse and Breo Ellipta, however, he did have some side effects of this plus he said it was quite expensive, he did not refill this. He had been taken his DuoNeb about five times along with Combivent two or three times a day, however, he has been having more shortness of breath, not able to do as much such as ride his bicycle around town, so he was admitted. It was noted after admission that the lateral aspect of chest x-ray did show up as a left lingular pneumonia. He was admitted with IV antibiotics. He was placed on concomitant azithromycin for his pneumonia. HOSPITAL COURSE: The patient's hospital course went fairly well. He progressed and responded to treatments quite rapidly. Pharmacy was consulted due to his Breo Ellipta and his Incruse noncompliance. Collaborative decision was made even though he would have 2% reduced efficacy, however, for best patient compliance, we are combining Pulmicort neb along with Brovana neb. Upon discharge, he seemed to respond to this well in the admission. He is allergic to fluoroquinolones. Antibiotics, he was given azithromycin IV along with Rocephin IV along with DuoNeb. We monitored his white count, it was improving, however, he was on steroids, we gave him prednisone oral steroids also in conjunction with his Pulmicort. He did well with this. Microbiology, a sputum sample was collected gram stain only, showed gram-positive cocci. No identifiable agent upon discharge. White count 14.9, percentage neutrophils 75.5. He did have an ABG on admission which showed pH 7.49, CO2 of 40, pO2 of 57 with a bicarb responding at 30.1. This was on 2 L nasal cannula. All points toward an acute metabolic alkalosis. Sodium and potassium were normal. Carbon dioxide venous is 32.4, slightly down, (normal range is 21-32). BUN and creatinine normal. TSH was done, did show slightly elevated at 7.7, he was started on 25 mcg of levothyroxine on discharge. We did monitor the C-reactive protein, it was 2.5 on admission, 0.7 on discharge. Vital signs on discharge, temperature 97.6, heart rate 80, O2 sats 93% that is on room air. He never required much oxygen. He was off oxygen and ambulating the halls, felt much better on discharge. New medications; Brovana neb mixed with Pulmicort neb b.i.d. (newly added); continue with Combivent as needed when away from home; DuoNeb one or two times a day as needed, hopefully we can taper him off this; discontinue Incruse. Discontinue Breo Ellipta. Azithromycin 500 mg p.o. x4 days, newly added. Levothyroxine 25 mcg p.o. daily, newly added. Discontinue Coumadin. Prednisone taper 20 mg p.o. for two days, 10 mg p.o. for two days, 5 mg p.o. for two days. The patient can continue on all other home medications. DISPOSITION: The patient will be discharged from the hospital. He is much improved. He is supposed to report any fever, ongoing mucous production, increased worsening shortness of breath, very important to stop smoking. This has been reinforced to him multiple times. I will see him back in the clinic this week. He will have to be set up for surgery schedule as soon as possible to correct his right inguinal hernia. He is to wear a pelvic girdle until then and splint upon coughing. Report any worsening constipation or any abdominal pain. Medical decision making 45 minutes was spent on this discharge planning. /[id number]/MODL
== END 2016-12-05 12:45 | disposition home or self-care (01) | DRG 190 ==
LOC: KA.MS 15:30
PROVIDERS: ADMIT Nurse Practitioner Family; ATTEND Nurse Practitioner Family
DX: J44.0 Chronic obstructive pulmonary disease with (acute) lower respiratory infection (principal); J18.9 Pneumonia, unspecified organism; E87.3 Alkalosis; J44.1 Chronic obstructive pulmonary disease with (acute) exacerbation; K59.00 Constipation, unspecified; D50.9 Iron deficiency anemia, unspecified; E20.9 Hypoparathyroidism, unspecified; K40.90 Unilateral inguinal hernia, without obstruction or gangrene, not specified as recurrent; I25.10 Atherosclerotic heart disease of native coronary artery without angina pectoris; F17.210 Nicotine dependence, cigarettes, uncomplicated; Z79.899 Other long term (current) drug therapy; Z88.8 Allergy status to other drugs, medicaments and biological substances
CPT/HCPCS: 36415; 36600; 80048; 82607; 82747; 82803; 84443; 85025; 86140; 87070; 87205; 94640; A9270-GY; J0456; J0696; J1650; J7030; J7050

== ENCOUNTER 2017-01-20 01:30 | Inpatient (IN) | payer MEDICARE, MEDICAID ==
[2017-01-20] MEDS ORDERED: Albuterol/Ipratropium 3.0-0.5 MG/3 ML Neb Soln NEB ONE (01:46)
[2017-01-20] MEDS ORDERED: methylPREDNISolone Sodium Succinate 125 MG/2 ML SDV IVPUSH ONE (01:46)
[2017-01-20] MEDS ORDERED: methylPREDNISolone Sodium Succinate 125 MG/2 ML SDV ONE (01:48)
[2017-01-20] MEDS ORDERED: Albuterol/Ipratropium 3.0-0.5 MG/3 ML Neb Soln ONE (01:48)
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
[2017-01-20 02:30] LABS: CHLORIDE,CL 103 mmol/L (98-115); SODIUM,NA 141 mmol/L (136-145)
[2017-01-20] MEDS: methylPREDNISolone Sodium Succinate 125 MG/2 ML SDV IVPUSH SCH ×2 (03:08→11:06)
[2017-01-20] MEDS: Albuterol/Ipratropium 3.0-0.5 MG/3 ML Neb Soln NEB PRN ×2 (06:17→11:25)
[2017-01-20] MEDS ORDERED: Atropine 0.1 MG/ML 10 ML Syringe IVPUSH PRN (08:19)
[2017-01-20] MEDS ORDERED: EPINEPHrine 1:10,000 1 MG/10 ML Syringe IVPUSH PRN (08:19)
[2017-01-20] MEDS ORDERED: Nitroglycerin 0.4 MG Tab.SL SL PRN ×2 (08:19→12:37)
[2017-01-20] MEDS ORDERED: Lidocaine 2% 100 MG/5 ML Syringe IVPUSH PRN (08:19)
[2017-01-20] MEDS: Sodium Chloride 0.9% 5 ML Syringe FLUSH PRN (11:07)
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
[2017-01-20] MEDS ORDERED: Docusate Sodium 100 MG Cap PO PRN (12:37)
[2017-01-20] MEDS ORDERED: Albuterol/Ipratropium 3.0-0.5 MG/3 ML Neb Soln NEB PRN (12:37)
[2017-01-20] MEDS: Enoxaparin 40 MG/0.4 ML Syringe SUBCUT SCH (13:54)
[2017-01-20] MEDS: Carboxymethylcellulose Sodium 0.5% Ophth Soln 15 ML Bottle EYEBOTH SCH (13:54)
[2017-01-20] MEDS: guaiFENesin 600 MG Tab.ER PO SCH ×2 (13:54→22:00)
[2017-01-20] MEDS: Arformoterol 15 MCG/2 ML Neb Soln NEB SCH ×2 (13:57→20:09)
[2017-01-20] MEDS: Budesonide 0.5 MG/2 ML Neb Susp NEB SCH ×2 (13:58→20:09)
[2017-01-20] MEDS: tiZANidine 4 MG Tab PO SCH ×2 (15:13→22:00)
[2017-01-20] MEDS: Albuterol/Ipratropium 3.0-0.5 MG/3 ML Neb Soln NEB SCH ×2 (15:34→22:00)
[2017-01-20] MEDS: predniSONE 20 MG Tab PO SCH (18:34)
[2017-01-20] MEDS ORDERED: traZODone 50 MG Tab PO PRN (21:00)
[2017-01-20] MEDS: Acetaminophen 325 MG Tab PO SCH (22:00)
[2017-01-20] MEDS: Sertraline 50 MG Tab PO SCH (22:00)
[2017-01-20] MEDS: Montelukast 10 MG Tab PO SCH (22:00)
[2017-01-21] MEDS: Albuterol/Ipratropium 3.0-0.5 MG/3 ML Neb Soln NEB SCH ×6 (01:32→22:07)
[2017-01-21] MEDS: Budesonide 0.5 MG/2 ML Neb Susp NEB SCH ×2 (07:46→19:52)
[2017-01-21] MEDS: Arformoterol 15 MCG/2 ML Neb Soln NEB SCH ×2 (07:46→19:52)
[2017-01-21] MEDS: Levothyroxine 25 MCG Tab PO SCH (07:46)
[2017-01-21] MEDS: guaiFENesin 600 MG Tab.ER PO SCH ×2 (10:00→22:06)
[2017-01-21] MEDS: Enoxaparin 40 MG/0.4 ML Syringe SUBCUT SCH (10:00)
[2017-01-21] MEDS: Carboxymethylcellulose Sodium 0.5% Ophth Soln 15 ML Bottle EYEBOTH SCH (10:00)
[2017-01-21] MEDS: predniSONE 20 MG Tab PO SCH (10:00)
[2017-01-21] MEDS: tiZANidine 4 MG Tab PO SCH ×3 (10:01→22:06)
[2017-01-21] MEDS: Acetaminophen 325 MG Tab PO SCH ×2 (10:01→22:06)
[2017-01-21] MEDS: Ondansetron 4 MG/2 ML SDV IVPUSH PRN ×2 (10:30→20:12)
[2017-01-21] MEDS ORDERED: methylPREDNISolone Sodium Succinate 125 MG/2 ML SDV IVPUSH ONE (10:56)
--- NOTE | 2017-01-21 12:02 | PN ---
01/21/2017 PATIENT NAME: BHARATI MARTE SUBJECTIVE: This is a 71-year-old patient with long history of COPD. He currently smokes cigarettes at home. He came in the clinic and he was having trouble breathing. He was having some shortness of breath, cough, some chest tightness, just feeling more short of breath than he usually does. He denied any fever or chills at home. He does have a recurrent right inguinal hernia that needs to be repaired. The patient was hospitalized last month for left lingular pneumonia, community acquired. The patient currently does not have home oxygen due to his currently smoking. Today, the patient states that he does feel a little bit better. He is still coughing quite a bit. He still feels short of breath. Cough is mostly nonproductive. He denies any chest pain. OBJECTIVE: VITAL SIGNS: Today, blood pressure is 135/71, respiratory rate is 20, oxygen saturation 95% on 1.5 L nasal cannula, pulse rate is 84, temperature is 97.5. GENERAL: This is an elderly white male in no acute distress. HEART: Tones are distant, but regular rate and rhythm. LUNGS: Sounds are very diminished at bilateral bases. He has coarse sounds throughout his lung anderson. ABDOMEN: Soft, nontender, nondistended. Bowel sounds present x4. No pedal edema noted on exam. LABORATORY DATA: The patient's lab work that was obtained yesterday showed a white count elevated at 13.2, hemoglobin 13.0. Chemistry panel is unremarkable. Troponin was negative. CK-MB was negative. IMPRESSION AND PLAN: 1. Exacerbation of chronic obstructive pulmonary disease. Plan: the patient was taking prednisone, it was really upsetting his stomach. I will change it back to Solu-Medrol IV. He was taking 40 mg b.i.d. We are going to decrease that to Solu-Medrol 60 mg IV daily. While he is here in the hospital, he has not been smoking. He is intolerant to Nicorette gum or nicotine patches. We wanted to start patient on Daliresp yesterday. The hospital here does not have that on stock. We will have that try to get some Daliresp for patient to be started on. We will continue with Brovana and Pulmicort nebulizers twice a day. I am going to change his DuoNeb from every 4 hours to every 6 hours. The patient does also receive some guaifenesin twice daily. Oxygen per nasal cannula as needed. We will continue with Singulair 10 mg at bedtime. The patient's chest x-ray just showed flattening of the diaphragm and consistent with COPD. We are going to start the patient on some Levaquin 500 mg IV daily. White count is slightly elevated at 13.2 yesterday. This may be from the steroids, but we will try antibiotic therapy to help with exacerbation of chronic obstructive pulmonary disease. 2. right inguinal hernia. The patient is not cleared for surgery by Cardiology at this time. He will need surgery or repair. 3. GI prophylaxis. We will continue with omeprazole 20 mg daily. 4. DVT prophylaxis. Plan, continue with Lovenox 40 mg subcu daily. 5. History of hypothyroidism. Plan, continue with levothyroxine 25 mcg daily. 6. History of depression. Plan, continue with Zoloft 100 mg at bedtime. /[id number]/MODL MTDD
[2017-01-21] MEDS: Levofloxacin/Dextrose 5%-Water 500 MG in Premix Bag 1 BAG IV SCH (12:10)
[2017-01-21] MEDS: Sodium Chloride 0.9% 5 ML Syringe FLUSH PRN (12:11)
[2017-01-21] MEDS: Sertraline 50 MG Tab PO SCH (22:06)
[2017-01-21] MEDS: Montelukast 10 MG Tab PO SCH (22:06)
[2017-01-22] MEDS: Albuterol/Ipratropium 3.0-0.5 MG/3 ML Neb Soln NEB SCH ×4 (05:58→22:36)
[2017-01-22] MEDS: Arformoterol 15 MCG/2 ML Neb Soln NEB SCH ×2 (07:55→19:57)
[2017-01-22] MEDS: Budesonide 0.5 MG/2 ML Neb Susp NEB SCH ×2 (07:55→19:57)
[2017-01-22] MEDS: Levothyroxine 25 MCG Tab PO SCH (07:56)
[2017-01-22] MEDS: Enoxaparin 40 MG/0.4 ML Syringe SUBCUT SCH (08:52)
[2017-01-22] MEDS: Carboxymethylcellulose Sodium 0.5% Ophth Soln 15 ML Bottle EYEBOTH SCH (08:53)
[2017-01-22] MEDS: guaiFENesin 600 MG Tab.ER PO SCH (08:53)
[2017-01-22] MEDS: tiZANidine 4 MG Tab PO SCH ×3 (08:54→20:12)
[2017-01-22] MEDS: Acetaminophen 325 MG Tab PO SCH ×2 (08:54→20:12)
[2017-01-22] MEDS: Sodium Chloride 0.9% 5 ML Syringe FLUSH PRN ×2 (08:56→11:12)
[2017-01-22] MEDS ORDERED: methylPREDNISolone Sodium Succinate 125 MG/2 ML SDV IVPUSH SCH (09:00)
[2017-01-22] MEDS ORDERED: predniSONE 20 MG Tab PO SCH (09:00)
[2017-01-22] MEDS: guaiFENesin/Dextromethorphan 100-10 MG/5 ML Soln 5 ML Cup PO SCH ×3 (10:13→20:13)
[2017-01-22] MEDS: Levofloxacin/Dextrose 5%-Water 500 MG in Premix Bag 1 BAG IV SCH (11:12)
[2017-01-22] MEDS: Sodium Chloride 0.9% 100 ML IV SCH (11:14)
--- NOTE | 2017-01-22 13:37 | PN ---
01/22/2017 PATIENT NAME: BHARATI MARTE SUBJECTIVE: The patient states that he is still coughing a lot. He says he coughed up some really thick dark-colored sputum. He says he had to work really hard to get it up. He denies any fever or chills. He says he has been chewing a lot of gum since he cannot smoke. The patient does have a long history of COPD. The patient states he smoked since the age of 10 years of age. OBJECTIVE: VITAL SIGNS: Today, temperature is 98.2, pulse is 73, blood pressure is 151/80, respiratory rate is 20 to 24 breaths per minute, oxygen saturations on room air 91% to 92%. GENERAL: This is an elderly white male, in no acute distress. He is coughing quite a bit. LUNGS: Lung sounds are coarse throughout lung anderson, diminished at bilateral bases. He does have scattered wheezing. HEART: Heart tones are distant, but regular rate and rhythm. No murmurs identified. ABDOMEN: Soft, nontender, nondistended. Bowel sounds present x4. EXTREMITIES: No pedal edema noted on exam. The patient does have frequent cough on exam. The patient did not have any lab work drawn today. IMPRESSION AND PLAN: 1. Exacerbation of chronic obstructive pulmonary disease. Plan: Continue the patient on Solu-Medrol IV. We will continue with 60 mg daily. He still is wheezing. The patient has not been smoking cigarettes when he is in the hospital. He is intolerant to Nicorette gum and nicotine patches. Hopefully, we can get some Daliresp tomorrow, Monday, start the patient on Daliresp daily. We will continue the patient on Pulmicort and Brovana nebulizers twice a day. Continue him on DuoNeb every 6 hours. I am going to stop the guaifenesin that was ordered twice a day and start the patient on Robitussin DM every 6 hours schedule. Continue with oxygen per nasal cannula as needed. Also, continue with Singulair 10 mg at bedtime. The patient's chest x-ray that he had taken on Monday showed flattened diaphragm and chronic changes consistent with COPD. We will continue with Levaquin 500 mg IV daily for antibiotic therapy. I will order a chest x- ray and CBC for the morning. I also may consider given the patient an IV piggyback of some theophylline today to help with the wheezing. 2. Right inguinal hernia. Plan: The patient is now cleared for surgery. He will need the surgery repaired at some time. 3. Gastrointestinal prophylaxis. Plan: Continue with omeprazole 20 mg daily. 4. Deep vein thrombosis prophylaxis. Plan: Continue with Lovenox 40 mg subcutaneous daily. 5. History of hypothyroidism. Plan: Continue with levothyroxine 25 mcg daily. 6. History of depression. Plan: Continue with Zoloft 100 mg at bedtime. /[id number]/MODL
[2017-01-22] MEDS: Montelukast 10 MG Tab PO SCH (20:12)
[2017-01-22] MEDS: Sertraline 50 MG Tab PO SCH (20:12)
[2017-01-23] MEDS: guaiFENesin/Dextromethorphan 100-10 MG/5 ML Soln 5 ML Cup PO SCH ×4 (04:03→20:27)
[2017-01-23] MEDS: Albuterol/Ipratropium 3.0-0.5 MG/3 ML Neb Soln NEB SCH (05:33)
[2017-01-23] MEDS: Budesonide 0.5 MG/2 ML Neb Susp NEB SCH ×2 (07:04→19:39)
[2017-01-23] MEDS: Arformoterol 15 MCG/2 ML Neb Soln NEB SCH ×2 (07:04→19:39)
[2017-01-23] MEDS: Levothyroxine 25 MCG Tab PO SCH (07:26)
[2017-01-23] MEDS: methylPREDNISolone Sodium Succinate 125 MG/2 ML SDV IVPUSH SCH ×2 (09:08→09:13)
[2017-01-23] MEDS: Carboxymethylcellulose Sodium 0.5% Ophth Soln 15 ML Bottle EYEBOTH SCH (09:09)
[2017-01-23] MEDS: Enoxaparin 40 MG/0.4 ML Syringe SUBCUT SCH (09:09)
[2017-01-23] MEDS: Roflumilast 500 MCG Tab PO SCH (09:09)
[2017-01-23] MEDS: Acetaminophen 325 MG Tab PO SCH ×2 (09:10→20:27)
[2017-01-23] MEDS: tiZANidine 4 MG Tab PO SCH ×3 (09:10→20:27)
[2017-01-23] MEDS: Tiotropium Inhaler 18 MCG Inhalation Powder Cap Kit of 5 INH SCH ×2 (09:27→09:28)
[2017-01-23] MEDS: Sodium Chloride 0.9% 5 ML Syringe FLUSH PRN (10:56)
[2017-01-23] MEDS: Sodium Chloride 0.9% 100 ML IV SCH (10:57)
[2017-01-23] MEDS: Levofloxacin/Dextrose 5%-Water 500 MG in Premix Bag 1 BAG IV SCH (10:57)
[2017-01-23] MEDS ORDERED: Albuterol/Ipratropium 3.0-0.5 MG/3 ML Neb Soln NEB PRN (11:00)
[2017-01-23] MEDS: Sertraline 50 MG Tab PO SCH (20:27)
[2017-01-23] MEDS: Montelukast 10 MG Tab PO SCH (20:27)
[2017-01-24] MEDS: guaiFENesin/Dextromethorphan 100-10 MG/5 ML Soln 5 ML Cup PO SCH ×2 (02:51→08:26)
[2017-01-24 06:50] VITALS: BP 137/80
[2017-01-24] MEDS: Budesonide 0.5 MG/2 ML Neb Susp NEB SCH (07:08)
[2017-01-24] MEDS: Arformoterol 15 MCG/2 ML Neb Soln NEB SCH (07:08)
[2017-01-24] MEDS: Levothyroxine 25 MCG Tab PO SCH (07:48)
[2017-01-24] MEDS: Roflumilast 500 MCG Tab PO SCH (08:22)
[2017-01-24] MEDS: tiZANidine 4 MG Tab PO SCH (08:22)
[2017-01-24] MEDS: Enoxaparin 40 MG/0.4 ML Syringe SUBCUT SCH (08:22)
[2017-01-24] MEDS: Carboxymethylcellulose Sodium 0.5% Ophth Soln 15 ML Bottle EYEBOTH SCH (08:22)
[2017-01-24] MEDS: Acetaminophen 325 MG Tab PO SCH (08:23)
[2017-01-24] MEDS: methylPREDNISolone Sodium Succinate 125 MG/2 ML SDV IVPUSH SCH (08:26)
[2017-01-24] MEDS: Tiotropium Inhaler 18 MCG Inhalation Powder Cap Kit of 5 INH SCH (09:29)
[2017-01-24] MEDS ORDERED: Sodium Chloride 0.9% 100 ML IV SCH (11:00)
--- NOTE | 2017-01-24 11:43 | PN ---
01/23/2017 PATIENT NAME: BHARATI MARTE SUBJECTIVE: The patient states that he still is coughing quite a bit. He says he has been chewing a lot of gum to help him not smoke cigarettes. He has not smoked any cigarettes since he has been in the hospital. He denies any fever or chills. He says that he is a lot better today than when he originally came into the clinic. He still states that he coughs quite often. He feels short of breath at times with any activity. He says that his cough is still productive with some thick phlegm at times. The patient uses his oxygen with shortness of breath when he is up to the bathroom as needed. OBJECTIVE: VITAL SIGNS: Today, temperature is 97.9, pulse is 84, blood pressure is 165/88, respiratory rate is 20, oxygen saturation are 91 and 92 on room air. The patient's chest x-ray that was obtained this morning, the impression reads per Radiology, no acute process. Lungs are clear but hyper- aerated. Pericardial mediastinum is prominent but stable. GENERAL: This is an elderly white male, in no acute distress. HEART: Tones are regular rate and rhythm. No murmurs identified. LUNGS: Sounds are coarse with inspiratory and expiratory wheezing throughout lung anderson. ABDOMEN: Soft, nontender, nondistended. Bowel sounds present x4. No pedal edema noted on exam. The patient's lab work that was obtained. CBC shows a white count slightly elevated at 12.4, hemoglobin stable at 13.7. IMPRESSION: 1. Exacerbation of chronic obstructive pulmonary disease. Plan: I am going to decrease the patient's Solu-Medrol IV from 60 mg daily to 40 mg daily. The patient still has wheezing throughout his lung anderson. He has not been smoking cigarettes since he has been in the hospital. We will start the patient on Daliresp today. We did receive it from pharmacy, we will start him on 500 mcg daily. We will continue with Pulmicort and Brovana nebulizers twice daily. We are going to stop the DuoNebs every 6 hours. We will start the patient on Spiriva inhaler once daily. He can have the DuoNebs as needed. We will continue with the Robitussin DM every 6 hours scheduled. The patient continues oxygen per nasal cannula as needed for shortness of breath. Also, we will continue the patient on Singulair 10 mg at bedtime. The patient's chest x-ray report from this morning the impression reads: no acute process per Dr. Jimbo Ardon radiologist. We will continue with IV antibiotic therapy of Levaquin 500 mg IV daily. The patient's white count continued to be slightly elevated at 12.4, most likely from steroid therapy. 2. Right inguinal hernia. Plan: The patient is not cleared for surgery at this time. He will need a surgical repair of the inguinal hernia at some time. 3. Gastrointestinal prophylaxis. Plan: Continue with omeprazole 20 mg daily. 4. Deep vein thrombosis prophylaxis. Plan: Continue with Lovenox 40 mg subcutaneous daily. 5. History of hypothyroidism. Plan: Continue with levothyroxine 25 mcg daily. 6. History of depression. Plan: Continue with Zoloft 100 mg at bedtime. /[id number]/MODL MTDD
[2017-01-24] MEDS: Levofloxacin/Dextrose 5%-Water 500 MG in Premix Bag 1 BAG IV SCH (11:51)
--- NOTE | 2017-01-25 07:53 | DISCH ---
The patient was admitted in observation on 01/20/2017, changed to inpatient on 01/22/2017, discharged from inpatient today, 01/24/2017. FINAL DIAGNOSES: 1. Chronic obstructive pulmonary disease exacerbation. 2. Right inguinal hernia. 3. Hypothyroidism. 4. Depression. HISTORY: This 71-year-old gentleman with longstanding end-stage COPD, ongoing smoker approximately three cigarettes per day per patient report, was admitted to the ED due to shortness of breath he had had for about two days prior. He also has some chest tightness, exacerbated by coughing. He does have an ongoing hernia with multiple attempts to repair this hernia. However, he needs cardiac clearance due to recent ECG findings of the inferior lead ischemic changes. He did have some increased mucus production [id number] with increasing wheezing. He was given IV Solu-Medrol through the ED. He had slight elevation of white count of 13,000. Troponin and all electrolytes were normal. He also had been in the hospital for left lingular pneumonia, community acquired just 2 or 3 weeks prior to this admission. DIAGNOSTIC DATA: Chest x-ray showed no infiltrate, however, flattened diaphragms with increased cephalization consistent with COPD. HOSPITAL COURSE: Hospital course went fairly well. He did have some ongoing shortness of breath. He was treated with DuoNebs, Brovana, and Pulmicort nebulizers. We did add some Mucinex. We changed that to Robitussin. We added Daliresp. It will be cost prohibitive on discharge, so we will not give him that. He was on telemetry. He did not have any major complications. We did titrate down his IV steroids. He was started on oral Levaquin. He did have ongoing right hernia, however, no signs of obstruction or gangrene. White count was slightly elevated, likely due to steroid induced. He never became hemodynamically unstable. LABORATORY DATA: On discharge, white count coming down 12.4, hemoglobin 13.7, hematocrit 40.3. Percentage neutrophils are normal. Sodium, potassium, BUN, all electrolytes, liver functions, troponin, alkaline phosphatase, and CK are all normal. MICROBIOLOGY: None. PHYSICAL EXAM ON DISCHARGE: VITAL SIGNS: Blood pressure 137/80, heart rate 76, temperature 97.8, O2 sats on room air 92%. GENERAL: The patient is alert and oriented. Feels much better. Only has mild cough. No fever. LUNGS: Do have diminished sounds, however, no wheezing. He is passing air. CARDIOVASCULAR: Regular rate and rhythm. Right inguinal hernia noted, non- incarcerated, easily reducible, significant clubbing. PERTINENT MEDICATIONS: 1. Daliresp, discontinue, cost prohibitive. 2. Spiriva 2 puffs daily (newly added). 3. The patient can continue on DuoNebs, Brovana, and Pulmicort. 4. The patient no longer taking Breo or Incruse. 5. Theophylline 300 mg p.o. daily (newly added). 6. Continue with Singulair. The patient can continue all other home medications. DISPOSITION: The patient will be discharged from the hospital. He is to take his medications as directed. Report any worsening cough, fever, or shortness of breath. I will follow up with the patient next week at the [facility]. Hopefully, he will have Cardiology appointment for cardiac clearance to fix his right inguinal hernia. CONSIDERATIONS AT FOLLOWUP: Medication compliance, assess theophylline level. MEDICAL DECISION MAKING: Thirty three minutes were spent on this discharge planning process, pharmacy coordination. /[id number]/MODL
== END 2017-01-24 12:30 | disposition home or self-care (01) | DRG 192 ==
LOC: KA.ED 01:30 → KA.MS 02:39 → UNDOADMOB 02:45 → OBSVTOIN 01-22 10:44
PROVIDERS: ADMIT Family Medicine; ATTEND Family Medicine
DX: J44.1 Chronic obstructive pulmonary disease with (acute) exacerbation (principal); K40.90 Unilateral inguinal hernia, without obstruction or gangrene, not specified as recurrent; E03.9 Hypothyroidism, unspecified; F32.9 Major depressive disorder, single episode, unspecified; F17.200 Nicotine dependence, unspecified, uncomplicated; F17.210 Nicotine dependence, cigarettes, uncomplicated; I25.2 Old myocardial infarction; I25.10 Atherosclerotic heart disease of native coronary artery without angina pectoris; Z79.899 Other long term (current) drug therapy; Z95.5 Presence of coronary angioplasty implant and graft; Z88.8 Allergy status to other drugs, medicaments and biological substances
CPT/HCPCS: 71010; 80053; 82550; 82553; 84484; 85025; 93005; 94640 ×11; 96365; 96372 ×3; 96375 ×2; 96376 ×3; 99285; A9270 ×23; G0378 ×2; J1650 ×3; J1956; J2405 ×2; J2930 ×4; 36415; 71020; 96374; 99284; J7050

== ENCOUNTER 2017-07-07 18:56 | Observation (INO) | payer MEDICARE, MEDICAID ==
[2017-07-07] MEDS ORDERED: methylPREDNISolone Sodium Succinate 125 MG/2 ML SDV IVPUSH ONE (19:11)
[2017-07-07] MEDS ORDERED: Albuterol/Ipratropium 3.0-0.5 MG/3 ML Neb Soln NEB ONE (19:11)
[2017-07-07] MEDS ORDERED: Sodium Chloride 0.9% 5 ML Syringe FLUSH PRN (19:11)
[2017-07-07] MEDS ORDERED: Sodium Chloride 0.9% 1,000 ML IV ONE (19:11)
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
[2017-07-07 20:40] LABS: CHLORIDE,CL 95 mmol/L (98-115); SODIUM,NA 136 mmol/L (136-145)
[2017-07-07] MEDS ORDERED: Albuterol/Ipratropium 4 GM Inhalation Spray INH PRN (22:43)
[2017-07-07] MEDS ORDERED: traZODone 50 MG Tab PO PRN (22:43)
[2017-07-07] MEDS ORDERED: Nitroglycerin 0.4 MG Tab.SL SL PRN (22:43)
[2017-07-07] MEDS ORDERED: Acetaminophen 325 MG Tab PO PRN (22:43)
[2017-07-07] MEDS ORDERED: Albuterol/Ipratropium 3.0-0.5 MG/3 ML Neb Soln NEB PRN (22:43)
[2017-07-07] MEDS ORDERED: NAPROXEN 250 MG PO PRN (22:43)
[2017-07-07] MEDS: cefTRIAXone 1 GM Vial IVPUSH SCH (23:06)
[2017-07-08] MEDS: Albuterol/Ipratropium 3.0-0.5 MG/3 ML Neb Soln NEB SCH ×4 (05:24→22:03)
[2017-07-08 08:45] LABS: CHLORIDE,CL 99 mmol/L (98-115); SODIUM,NA 137 mmol/L (136-145)
[2017-07-08] MEDS: Budesonide 0.5 MG/2 ML Neb Susp NEB SCH ×2 (09:13→19:39)
[2017-07-08] MEDS: Calcium Citrate/Vitamin D3 315 MG-250 Unit Tab PO SCH (09:13)
[2017-07-08] MEDS: Arformoterol 15 MCG/2 ML Neb Soln NEB SCH ×2 (09:13→19:39)
[2017-07-08] MEDS: Magnesium Oxide 500 MG Tab PO SCH (09:13)
[2017-07-08] MEDS: Theophylline 300 MG Tab.ER PO SCH (09:14)
[2017-07-08] MEDS: Multivitamins with Minerals/Iron/Folic Acid/Lycopene Tab PO SCH (09:19)
[2017-07-08] MEDS ORDERED: Ondansetron 4 MG/2 ML SDV IVPUSH ONE (11:10)
[2017-07-08] MEDS: Montelukast 10 MG Tab PO SCH (20:19)
[2017-07-08] MEDS: Thiamine 100 MG Tab PO SCH (20:19)
[2017-07-08] MEDS: atorvaSTATin 10 MG Tab PO SCH (20:19)
[2017-07-08] MEDS: Ondansetron 4 MG/2 ML SDV IVPUSH PRN (21:56)
[2017-07-08] MEDS: cefTRIAXone 1 GM Vial IVPUSH SCH (22:00)
--- NOTE | 2017-07-09 01:14 | HP ---
HISTORY OF PRESENT ILLNESS: This is a 72-year-old male patient who was admitted to [facility] through the ED. He was brought to the ED by the local ambulance. The patient was seen at the bar in respiratory distress. He seemed confused and short of breath. He was assisted by others in the local bar and had asked to be taken to the emergency room for evaluation. The patient does have a history of chronic alcoholism and was quite intoxicated at the time he was brought to the ED. HOME MEDICATION: Includes: multivitamin daily, calcium with vitamin D daily, Combivent inhalation spray two spays q.i.d. as needed, nitroglycerin 0.4 sublingual PRN, trazodone 50 at bedtime as needed, Lubricant Eye Drops two drops to each eye daily, folic acid 400 mcg daily, thiamine 100 mg at bedtime, Singulair 10 mg at bedtime, Tylenol 650 twice a day, DuoNeb q.i.d. p.r.n., naproxen 250 daily, Zanaflex 4 mg t.i.d., magnesium oxide daily, Brovana 15 mcg daily, Pulmicort 0.5 at bedtime, Lipitor 20 mg daily, theophylline 300 mg. PAST MEDICAL HISTORY: Includes history of [place] with stenting. Reports [place] x 2 ten years ago. COPD, pneumonia, bronchitis, recurrent shortness of breath, history of chronic constipation, arthritis, most prominently in his back, chronic alcoholism addiction. He has had a history of anxiety and depression. Previously, he was in the [facility] for alcohol treatment. History of hypothyroidism, history of blood transfusions, and history of prostate cancer. PAST SURGICAL HISTORY: Tonsillectomy, cataract surgery, coronary artery stenting, appendectomy, inguinal hernia, and laminectomy. FAMILY HISTORY: Noncontributory. SOCIAL HISTORY: Tobacco history, he is a daily smoker. He drinks pop on daily basis, alcohol is daily. REVIEW OF SYSTEMS: GENERAL: elderly, frail male CONSTITUTIONAL: He reports no specific pain or discomfort. HEENT: He has had no headache, no nasal drainage, or sore throat. RESPIRATORY: He does complain of the chronic congested cough. CARDIOVASCULAR: No chest pain or palpitations. GI: He notes that he does have some nausea. At times does have emesis, mostly post coughing. MUSCULOSKELETAL: History of arthritis. PHYSICAL EXAMINATION: GENERAL: Frail elderly male, he is alert, he is oriented. HEENT: Head is normocephalic, conjunctivae is clear. No nasal drainage. RESPIRATORY: Lung sounds are decreased throughout. He does have intermittent expiratory wheezing. CARDIOVASCULAR: Heart rate and rhythm is regular. S1 and S2. ABDOMEN: Soft, nontender, bowel sounds are present. EXTREMITIES: No lower extremity edema. IMPRESSION/PLAN: This patient was treated in the ED and admitted to observation. His lab was obtained noting he did have an alcohol level of 145, hemoglobin was 15.6 with 12.8 white count. He did receive 1 g of IM Rocephin. He also received a bolus of normal saline in the ED. Potassium is 3.1, chloride 95, BUN is 9, creatinine is 0.64. His medication on admission: Tylenol 650 b.i.d., DuoNeb q.6 hours, Brovana 15 mcg b.i.d., Lipitor 20 at bedtime, Pulmicort nebulizer b.i.d., calcium with vitamin D daily, folic acid 0.4 daily, magnesium oxide 250, Singulair 10 at bedtime, multivitamin daily, naproxen 220 daily, he will have his thiamine 100 mg daily, theophylline 300 mg daily, trazodone 50 at bedtime. Consideration for discharge was given on 07/08/2017 as his intoxication was resolved. However, prior to the discharge plan, he did develop some nausea and vomiting. This is primarily with cough. Will treat with Zofran. This could also be related to his previous intoxicated state. Therefore, he will remain in observation until tomorrow morning. Exacerbation of COPD with an elevated white count. He did receive Rocephin x1. Intoxication with 145 alcohol level. Discussed patient status and plan of care with Dr. Swati Edwards MD. /[id number]/MODL MTDD
[2017-07-09] MEDS: Albuterol/Ipratropium 3.0-0.5 MG/3 ML Neb Soln NEB SCH ×4 (05:27→22:22)
[2017-07-09] MEDS: Arformoterol 15 MCG/2 ML Neb Soln NEB SCH (07:43)
[2017-07-09] MEDS: Budesonide 0.5 MG/2 ML Neb Susp NEB SCH ×2 (07:43→20:26)
[2017-07-09] MEDS: Ondansetron 4 MG/2 ML SDV IVPUSH PRN (08:00)
[2017-07-09] MEDS: Theophylline 300 MG Tab.ER PO SCH (08:01)
[2017-07-09] MEDS: Multivitamins with Minerals/Iron/Folic Acid/Lycopene Tab PO SCH (08:01)
[2017-07-09] MEDS: Calcium Citrate/Vitamin D3 315 MG-250 Unit Tab PO SCH (08:01)
[2017-07-09] MEDS: Magnesium Oxide 500 MG Tab PO SCH (08:02)
[2017-07-09 08:28] LABS: CHLORIDE,CL 97 mmol/L (98-115); SODIUM,NA 137 mmol/L (136-145)
[2017-07-09] MEDS ORDERED: Lidocaine 2% 100 MG/5 ML Syringe IVPUSH PRN (10:36)
[2017-07-09] MEDS ORDERED: Nitroglycerin 0.4 MG Tab.SL SL PRN (10:36)
[2017-07-09] MEDS ORDERED: EPINEPHrine 1:10,000 1 MG/10 ML Syringe IVPUSH PRN (10:36)
[2017-07-09] MEDS ORDERED: Atropine 0.1 MG/ML 10 ML Syringe IVPUSH PRN (10:36)
[2017-07-09] MEDS: Folic Acid 1 MG Tab PO SCH (11:29)
--- NOTE | 2017-07-09 14:50 | PCM.SN ---
- Free Text/Narrative Note: Patient is a 72-year-old male patient who was admitted to the hospital as a result of intoxication. He also had an exacerbation of his COPD. On admission alcohol level was 145. He was initially going to be discharged yesterday however he developed nausea and vomiting. Respond to Zofran initially. Later in the day developed nausea and vomiting again and has had an emesis this morning. See with the patient he states that he feels that this is due to his Brovana. He reports he has stopped the medication at home as a result of the vomiting. In review of his emesis patterns it does appear that they have occurred after his Brovana treatments. Nausea and vomiting may be attributed to his intoxicated status also. This morning his appetite has been fair. Fluid intake is fair. He states that he notes a burning sensation in his stomach after having an emesis. Review of systems. Gen.; frail, ill appearing male. H EENT; no complaints of headache, earache or sore throat. Respiratory; history of COPD, cough and congestion, emesis after Brovana. Cardiovascular; no complaints of chest discomfort or palpitations. GI; appetite and fluid intake have been fair with nausea and vomiting. Musculoskeletal; history of arthralgia. Physical exam H EENT; frail, elderly, ill appearing male. Respiratory; lung sounds diminished, intermittent expiratory wheezing auscultated. Congested cough present. Cardiovascular; heart rate and rhythm is regular S1-S2. Abdomen; soft, bowel sounds present. Extremities; no edema. Impression and plan. Patient status and when of care discussed with Dr.Rup Molina. Intoxication resolved. COPD with expectorant/nausea and vomiting; third dose of Rocephin this evening. Brovana discontinued. We will initiate Spiriva. Patient has been refusing the DuoNebs. Will evaluate if Spiriva better tolerated. It is noted that this is an odd combination however in the past patient's respiratory status has been managed with nontraditional intervention. We will continue with Zofran as needed. Continue Zofran as needed. Lab work to be obtained in the morning.
[2017-07-09] MEDS: atorvaSTATin 10 MG Tab PO SCH (20:34)
[2017-07-09] MEDS: Montelukast 10 MG Tab PO SCH (20:34)
[2017-07-09] MEDS: Thiamine 100 MG Tab PO SCH (20:34)
[2017-07-09] MEDS: cefTRIAXone 1 GM Vial IVPUSH SCH (22:22)
[2017-07-10] MEDS: Albuterol/Ipratropium 3.0-0.5 MG/3 ML Neb Soln NEB SCH ×2 (05:55→11:25)
[2017-07-10 06:50] VITALS: BP 107/78
[2017-07-10] MEDS: Budesonide 0.5 MG/2 ML Neb Susp NEB SCH (07:19)
[2017-07-10] MEDS: Folic Acid 1 MG Tab PO SCH (08:37)
[2017-07-10] MEDS: Theophylline 300 MG Tab.ER PO SCH (08:38)
[2017-07-10] MEDS: Calcium Citrate/Vitamin D3 315 MG-250 Unit Tab PO SCH (08:38)
[2017-07-10] MEDS: Magnesium Oxide 500 MG Tab PO SCH (08:38)
[2017-07-10] MEDS: Tiotropium Inhaler 18 MCG Inhalation Powder Cap Kit of 5 INH SCH ×2 (08:39→08:40)
[2017-07-10] MEDS: Multivitamins with Minerals/Iron/Folic Acid/Lycopene Tab PO SCH (08:39)
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
[2017-07-23] MEDS ORDERED: Carboxymethylcellulose Sodium 0.5% Ophth Soln 15 ML Bottle EYEBOTH SCH (11:00)
== END 2017-07-10 12:15 | disposition home or self-care (01) ==
LOC: KA.ED 18:56 → KA.MS 21:02
PROVIDERS: ADMIT Physician Assistant Surgical; ATTEND Physician Assistant Medical
DX: J44.1 Chronic obstructive pulmonary disease with (acute) exacerbation (principal); F10.120 Alcohol abuse with intoxication, uncomplicated; K40.90 Unilateral inguinal hernia, without obstruction or gangrene, not specified as recurrent; I25.2 Old myocardial infarction; M19.90 Unspecified osteoarthritis, unspecified site; F41.9 Anxiety disorder, unspecified; F32.9 Major depressive disorder, single episode, unspecified; E03.9 Hypothyroidism, unspecified; F17.210 Nicotine dependence, cigarettes, uncomplicated; Y90.6 Blood alcohol level of 120-199 mg/100 ml; Z79.899 Other long term (current) drug therapy; Z95.5 Presence of coronary angioplasty implant and graft; Z88.1 Allergy status to other antibiotic agents; Z88.8 Allergy status to other drugs, medicaments and biological substances
CPT/HCPCS: 36415; 71046; 80048; 80053; 80198; 80305; 81001; 83735; 84484; 85025; 85610; 85730; 87804; 93005; 94640; 96361; 96374; 96375; 96376; 99285; A9270; G0378; G0480; J0696; J2405; J2930; J7030

== ENCOUNTER 2017-08-02 07:03 | Day surgery (SDC) | payer MEDICARE, MEDICAID ==
[~2017-08-02 07:03] MED LIST: Bupivacaine 0.5%/EPINEPHrine 1:200,000 30 ML SDV ONE; Lactated Ringers 1,000 ML ONE; Midazolam 1 MG/ML 2 ML SDV ONE; Propofol 200 MG/20 ML SDV ONE; ceFAZolin 1 GM Vial ONE; fentaNYL 100 MCG/2 ML SDV ONE
[2017-08-02] MEDS: Lactated Ringers 1,000 ML IV SCH (07:54)
[2017-08-02] MEDS: Albuterol/Ipratropium 3.0-0.5 MG/3 ML Neb Soln NEB SCH (07:54)
[2017-08-02] MEDS ORDERED: Propofol 200 MG/20 ML SDV ONE (07:58)
[2017-08-02 08:03] LABS: CHLORIDE,CL 106 mmol/L (98-115); SODIUM,NA 146 mmol/L (136-145)
[2017-08-02] MEDS ORDERED: Propofol 200 MG/20 ML SDV IV ONE (08:15)
[2017-08-02] MEDS ORDERED: ceFAZolin 1 GM Vial IV ONE (08:15)
[2017-08-02] MEDS ORDERED: Midazolam 1 MG/ML 2 ML SDV IV ONE (08:15)
[2017-08-02] MEDS ORDERED: fentaNYL 100 MCG/2 ML SDV IV ONE (08:15)
[2017-08-02] MEDS: Sodium Chloride 0.9% 20 ML SDV ONE (08:54)
[2017-08-02] MEDS: ceFAZolin 1 GM Vial ONE (08:54)
[2017-08-02] MEDS: Bupivacaine 0.5%/EPINEPHrine 1:200,000 30 ML SDV INFILT ONE ×2 (08:54)
--- NOTE | 2017-08-02 09:55 | PCM.OPNOTE ---
- General Post-Op/Procedure Note Date of Surgery/Procedure: 08/02/17 Operative Procedure(s): Right inguinal herniorrhaphy, recurrent Findings: This patient was found to have a recurrent right inguinal herniorrhaphy. Repair was performed using a Marlex mesh. Pre Op Diagnosis: Recurrent right inguinal hernia. Post-Op Diagnosis: Same Anesthesia Technique: General ET Tube, Moderate Sedation Primary Surgeon: Nakia Edwards Complications: None Condition: Good Free Text/Narrative:: INFORMED CONSENT: The patient is here today for elective repair of recurrent right inguinal hernia. The operative procedure, anesthesia and risks of both are completely explained to the patient. These include infection, pain, bleeding , recurrence, numbness and other unknown complications. The patient wished to proceed. The patient was kept in the supine position and the Rt inguinal area was thoroughly prepped and draped in the usual fashion. An incision was made over the Rt inguinal area, parallel to the inguinal ligament. The skin incision was deepened through the subcutaneous tissue, deep fascia and the external oblique was opened along the line of the skin incision. The cord structures were identified and kept out of harms way. We also identified the ilioinguinal nerve and the inguinal branch of the genitofemoral nerve. These two structures were kept out of harms way as well. We then dissected the medial portion of the cord and there was a fairly significant hernial sac which was opened. The contents were mostly omental tissue that was pushed back into the abdominal cavity. A high ligation of the sac was performed with 0 silk sutures. The excess sac was excised and sent away for histology. Palpation of the medial portion of the floor indicated a defect. A Marlex mesh was then cut down to size and placed to fortify the defect of the floor and the direct portion of the hernia. The mesh was attached to the conjoined tendon superiorly, Luis Manuel's ligament medially and the reflected portion of the inguinal ligament inferiorly. The wound was copiously irrigated, small bleeders were cauterized and the external oblique was closed over the cord structures using running 0 silk sutures. The subcutaneous tissue was closed with 0 Polysorb suture and the skin was closed using 4.0 Polysorb suture. A Sterile pressure dressing was applied, the patient tolerated the procedure well and there were no operative complications. Blood loss was negligible. Sponge, needle and instrument count was correct. The patient was transferred to the recovery room in excellent condition.
[2017-08-02] MEDS: Morphine 2 MG/ML Syringe IVPUSH ONE (11:56)
[2017-08-02] MEDS: Sodium Chloride 0.9% 5 ML Syringe FLUSH PRN (11:57)
[2017-08-02] MEDS: Acetaminophen 325 MG Tab PO PRN (16:04)
[2017-08-02 16:42] VITALS: BP 158/74
== END 2017-08-02 16:35 | disposition home or self-care (01) ==
LOC: KA.SDS 07:03
PROVIDERS: ATTEND Family Medicine
DX: K40.90 Unilateral inguinal hernia, without obstruction or gangrene, not specified as recurrent (principal); J44.9 Chronic obstructive pulmonary disease, unspecified; Z79.2 Long term (current) use of antibiotics; Z79.899 Other long term (current) drug therapy; Z79.82 Long term (current) use of aspirin; Z88.1 Allergy status to other antibiotic agents; Z88.8 Allergy status to other drugs, medicaments and biological substances
CPT/HCPCS: 00830; 36415; 80048; 94640; A9270-GY; C1781; J0690; J2250; J2270; J2704; J3010; J7120

== ENCOUNTER 2017-10-15 11:06 | Inpatient (IN) | payer MEDICARE, MEDICAID ==
[2017-10-15] MEDS ORDERED: Sodium Chloride 0.9% 1,000 ML IV ONE (11:09)
[2017-10-15] MEDS ORDERED: Sodium Chloride 0.9% 5 ML Syringe FLUSH PRN ×2 (11:09→12:54)
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
[2017-10-15] MEDS ORDERED: Ondansetron 4 MG/2 ML SDV IVPUSH ONE (11:19)
[2017-10-15] MEDS ORDERED: HYDROmorphone 1 MG/ML Syringe IVPUSH ONE (11:19)
[2017-10-15 11:45] LABS: CHLORIDE,CL 97 mmol/L (98-115); SODIUM,NA 135 mmol/L (136-145)
[2017-10-15] MEDS ORDERED: Iopamidol 612 MG/ML 75 ML Bottle IV ONE (11:53)
[2017-10-15] MEDS ORDERED: Sodium Chloride 0.9% 50 ML IV SCH (12:00)
[2017-10-15] MEDS ORDERED: Albuterol/Ipratropium 3.0-0.5 MG/3 ML Neb Soln NEB PRN (12:54)
[2017-10-15] MEDS ORDERED: HYDROmorphone 2 MG/ML SDV IVPUSH PRN (12:54)
[2017-10-15] MEDS ORDERED: Ondansetron 4 MG/2 ML SDV IV PRN (12:54)
[2017-10-15] MEDS ORDERED: chlordiazePOXIDE 25 MG Cap PO PRN (12:58)
[2017-10-15] MEDS ORDERED: metroNIDAZOLE/Normal Saline 500 MG in Premix Bag 1 BAG IV SCH (13:00)
[2017-10-15] MEDS ORDERED: Thiamine 100 MG in Sodium Chloride 0.9% 100 ML IV ONE (13:02)
[2017-10-15] MEDS ORDERED: MVI, Adult with Vitamin K 10 ML in Sodium Chloride 0.9% 1,000 ML IV ONE ×2 (13:07)
[2017-10-15] MEDS ORDERED: Magnesium Sulfate/Water 2 GM in Premix Bag 1 BAG IV ONE (13:07)
[2017-10-15] MEDS ORDERED: Dextrose 5%-0.45% NaCl 1,000 ML IV SCH (13:15)
[2017-10-15] MEDS ORDERED: MVI, Adult with Vitamin K 10 ML in Dextrose 5%-Lactated Ringers 1,000 ML IV SCH ×2 (13:15)
[2017-10-15] MEDS ORDERED: THIAMINE IV SCH ×4 (13:30)
[2017-10-15] MEDS ORDERED: VITAMIN K IV SCH ×4 (13:30)
[2017-10-15] MEDS ORDERED: [UNRECOGNIZED DRUG - OTHER] IV SCH ×4 (13:30)
[2017-10-15] MEDS ORDERED: MAGNESIUM SULFATE IV SCH ×4 (13:30)
[2017-10-15] MEDS ORDERED: MVI IV SCH ×4 (13:30)
[2017-10-15] MEDS: Folic Acid 1 MG Tab PO SCH (14:38)
[2017-10-15] MEDS: cefTRIAXone 1 GM Vial IVPUSH SCH (14:39)
[2017-10-15] MEDS: metroNIDAZOLE/Normal Saline 500 MG in Premix Bag 1 BAG IV SCH ×2 (16:20→20:46)
[2017-10-15] MEDS: Pantoprazole 40 MG Vial IVPUSH SCH (17:30)
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
[2017-10-15] MEDS ORDERED: Promethazine 12.5 MG in Sodium Chloride 0.9% 50 ML IV PRN (18:44)
[2017-10-15] MEDS ORDERED: Ondansetron 4 MG Tab.DIS PO PRN (18:48)
[2017-10-15] MEDS ORDERED: Albuterol/Ipratropium 4 GM Inhalation Spray INH PRN (18:50)
[2017-10-15] MEDS ORDERED: Nitroglycerin 0.4 MG Tab.SL SL PRN (18:53)
[2017-10-15] MEDS: Budesonide 0.5 MG/2 ML Neb Susp NEB SCH (19:35)
[2017-10-15] MEDS: Arformoterol 15 MCG/2 ML Neb Soln NEB SCH (19:35)
[2017-10-15] MEDS ORDERED: Sodium Chloride 0.9% 100 ML ONE (20:03)
[2017-10-15] MEDS: Sertraline 50 MG Tab PO SCH (20:47)
[2017-10-15] MEDS: Montelukast 10 MG Tab PO SCH (20:47)
[2017-10-15] MEDS: traZODone 50 MG Tab PO PRN (20:47)
[2017-10-16] MEDS: metroNIDAZOLE/Normal Saline 500 MG in Premix Bag 1 BAG IV SCH ×4 (02:51→21:01)
[2017-10-16] MEDS: Budesonide 0.5 MG/2 ML Neb Susp NEB SCH ×2 (07:24→20:58)
[2017-10-16] MEDS: Arformoterol 15 MCG/2 ML Neb Soln NEB SCH ×2 (07:24→20:58)
[2017-10-16 07:34] LABS: CHLORIDE,CL 100 mmol/L (98-115); SODIUM,NA 139 mmol/L (136-145)
[2017-10-16] MEDS: Pantoprazole 40 MG Vial IVPUSH SCH (08:25)
[2017-10-16] MEDS: Theophylline 300 MG Tab.ER PO SCH (08:27)
[2017-10-16] MEDS: Folic Acid 1 MG Tab PO SCH (08:27)
[2017-10-16] MEDS: Acetaminophen 325 MG Tab PO PRN (08:27)
[2017-10-16] MEDS ORDERED: Carboxymethylcellulose Sodium 0.5% Ophth Soln 15 ML Bottle EYEBOTH SCH (09:00)
--- NOTE | 2017-10-16 09:41 | PCM.PN ---
- General Info Date of Service: 10/16/17 Functional Status: Reports: Tolerating Diet (clear liquid). Denies: Pain Controlled, Ambulating - Review of Systems General: Denies: Fever HEENT: Reports: Eye Pain (Sore left eye, watery). Denies: Rhinitis, Visual Changes Pulmonary: Reports: No Symptoms Cardiovascular: Reports: No Symptoms Gastrointestinal: Reports: Abdominal Pain (Left lower quadrant). Denies: Constipation, Diarrhea, Difficulty Swallowing, Nausea, Vomiting Genitourinary: Reports: No Symptoms Musculoskeletal: Reports: No Symptoms Skin: Reports: No Symptoms Neurological: Reports: No Symptoms Psychiatric: Reports: No Symptoms - Patient Data Vitals - Most Recent: Last Vital Signs Temp 97.3 F 10/16/17 06:15 Pulse 73 10/16/17 06:15 Resp 20 10/16/17 06:15 BP 124/73 10/16/17 06:15 Pulse Ox 90 L 10/16/17 06:15 Weight - Most Recent: 110 lb 3.2 oz I&O - Last 24 Hours: Intake & Output 10/15/17 10/16/17 10/16/17 22:59 06:59 14:59 Intake Total 1334 1067 Output Total 1100 Balance 234 1067 Lab Results Last 24 Hours: Laboratory Results - last 24 hr 10/15/17 10/15/17 10/15/17 Range/Units 11:10 11:10 12:50 WBC 10.4 H (5.0-10.0) 10^3/uL RBC 4.57 (4.50-6.00) 10^6/uL Hgb 16.3 D (13.0-17.0) g/dL Hct 48.1 (40.0-52.0) % MCV 105.2 H (82.0-92.0) fL MCH 35.7 H (27.0-31.0) pg MCHC 33.9 (32.0-36.0) g/dL RDW 14.2 (11.5-14.5) % Plt Count 119 L (150-300) 10^3/uL MPV 7.8 (7.4-10.4) fL Neut % (Auto) 77.8 H (50.0-70.0) % Lymph % (Auto) 10.2 L (20.0-40.0) % [place] % (Auto) 11.0 H (2.0-8.0) % Eos % (Auto) 0.9 L (1.0-3.0) % Baso % (Auto) 0.1 (0.0-1.0) % Neut # (Auto) 8.1 H (2.5-7.0) 10^3/uL Lymph # (Auto) 1.1 (1.0-4.0) 10^3/uL [place] # (Auto) 1.1 H (0.1-0.8) 10^3/uL Eos # (Auto) 0.1 (0.1-0.3) 10^3/uL Baso # (Auto) 0.0 (0.0-0.1) 10^3/uL PT (8.9-11.4) SEC INR (0.9-1.1) APTT (20.8-31.2) SEC Sodium 135 L D (136-145) mmol/L Potassium 4.0 (3.3-5.3) mmol/L Chloride 97 L (98-115) mmol/L Carbon Dioxide 28.1 (21.0-32.0) mmol/L BUN 5 L (6-25) mg/dL Creatinine 0.54 (0.51-1.17) mg/dL Est Cr Clr Drug Dosing TNP Estimated GFR (MDRD) > 60 mL/min Glucose 147 H (70-110) mg/dL Calcium 9.3 (8.7-10.3) mg/dL Magnesium (1.8-2.4) mg/dL Total Bilirubin 0.9 (0.2-1.0) mg/dL AST 64 H (15-37) U/L ALT 48 (12-78) U/L Alkaline Phosphatase 126 H (46-116) IU/L Total Protein 7.1 (6.4-8.2) g/dL Albumin 4.24 (3.00-4.80) g/dL Lipase 136 (73-393) U/L Specimen Type Urinvoid Urine Color Yellow (YELLOW) Urine Appearance Clear (CLEAR) Urine pH 5.0 (5.0-9.0) Ur Specific [place] <= 1.005 (1.005-1.030) Urine Protein Negative (NEGATIVE) mg/dL Urine Glucose (UA) Negative (NEGATIVE) mg/dL Urine Ketones Negative (NEGATIVE) mg/dL Urine Occult Blood Negative (NEGATIVE) Urine Nitrite Negative (NEGATIVE) Urine Bilirubin Negative (NEGATIVE) Urine Urobilinogen 0.2 (0.2-1.0) E.U./dL Ur Leukocyte Esterase Negative (NEGATIVE) Urine RBC Not seen /HPF Urine WBC 0-5 /HPF Ur Epithelial Cells Rare /LPF Urine Bacteria Not seen (NONE TO FEW) /HPF Hyaline Casts Rare H (NEGATIVE) /LPF Urine Mucus Occasional H (NEGATIVE) /LPF 10/16/17 10/16/17 10/16/17 Range/Units 07:05 07:05 07:05 WBC 7.3 (5.0-10.0) 10^3/uL RBC 4.03 L (4.50-6.00) 10^6/uL Hgb 14.2 D (13.0-17.0) g/dL Hct 42.4 (40.0-52.0) % MCV 105.2 H (82.0-92.0) fL MCH 35.2 H (27.0-31.0) pg MCHC 33.5 (32.0-36.0) g/dL RDW 14.0 (11.5-14.5) % Plt Count 96 L (150-300) 10^3/uL MPV 7.0 L (7.4-10.4) fL Neut % (Auto) 71.9 H (50.0-70.0) % Lymph % (Auto) 14.9 L (20.0-40.0) % [place] % (Auto) 10.7 H (2.0-8.0) % Eos % (Auto) 2.1 (1.0-3.0) % Baso % (Auto) 0.4 (0.0-1.0) % Neut # (Auto) 5.2 (2.5-7.0) 10^3/uL Lymph # (Auto) 1.1 (1.0-4.0) 10^3/uL [place] # (Auto) 0.8 (0.1-0.8) 10^3/uL Eos # (Auto) 0.2 (0.1-0.3) 10^3/uL Baso # (Auto) 0.0 (0.0-0.1) 10^3/uL PT 10.5 (8.9-11.4) SEC INR 1.0 (0.9-1.1) APTT 29.1 (20.8-31.2) SEC Sodium 139 (136-145) mmol/L Potassium 3.9 (3.3-5.3) mmol/L Chloride 100 (98-115) mmol/L Carbon Dioxide 33.2 H (21.0-32.0) mmol/L BUN 5 L (6-25) mg/dL Creatinine 0.52 (0.51-1.17) mg/dL Est Cr Clr Drug Dosing 93.46 Estimated GFR (MDRD) > 60 mL/min Glucose 140 H (70-110) mg/dL Calcium 8.2 L (8.7-10.3) mg/dL Magnesium 2.2 (1.8-2.4) mg/dL Total Bilirubin (0.2-1.0) mg/dL AST (15-37) U/L ALT (12-78) U/L Alkaline Phosphatase (46-116) IU/L Total Protein (6.4-8.2) g/dL Albumin (3.00-4.80) g/dL Lipase (73-393) U/L Specimen Type Urine Color (YELLOW) Urine Appearance (CLEAR) Urine pH (5.0-9.0) Ur Specific [place] (1.005-1.030) Urine Protein (NEGATIVE) mg/dL Urine Glucose (UA) (NEGATIVE) mg/dL Urine Ketones (NEGATIVE) mg/dL Urine Occult Blood (NEGATIVE) Urine Nitrite (NEGATIVE) Urine Bilirubin (NEGATIVE) Urine Urobilinogen (0.2-1.0) E.U./dL Ur Leukocyte Esterase (NEGATIVE) Urine RBC /HPF Urine WBC /HPF Ur Epithelial Cells /LPF Urine Bacteria (NONE TO FEW) /HPF Hyaline Casts (NEGATIVE) /LPF Urine Mucus (NEGATIVE) /LPF Med Orders - Current: Current Medications Acetaminophen (Tylenol) 650 mg PO BID PRN PRN Reason: Pain Last Admin: 10/16/17 08:27 Dose: 650 mg Albuterol/Ipratropium (Duoneb 3.0-0.5 Mg/3 Ml) 3 ml NEB Q4H PRN PRN Reason: Shortness Of Breath/wheezing Albuterol/Ipratropium (Combivent Respimat) 0 gm INH QID PRN PRN Reason: Shortness of Breath Arformoterol Tartrate (Brovana) 15 mcg NEB BIDRT [facility] Last Admin: 10/16/17 07:24 Dose: 15 mcg Artificial Tears (Refresh Tears 0.5%) 0 ml EYEBOTH DAILY [facility] Budesonide (Pulmicort) 0.5 mg NEB BIDRT [facility] Last Admin: 10/16/17 07:24 Dose: 0.5 mg Ceftriaxone Sodium (Rocephin) 1 gm IVPUSH Q24H [facility] Last Admin: 10/15/17 14:39 Dose: 1 gm Chlordiazepoxide HCl (Librium) 25 mg PO TID PRN PRN Reason: Anxiety Last Admin: 10/15/17 18:06 Dose: 25 mg Folic Acid (Folic Acid) 1 mg PO DAILY [facility] Last Admin: 10/16/17 08:27 Dose: 1 mg Hydromorphone HCl (Dilaudid) 0.5 mg IVPUSH Q2H PRN PRN Reason: Pain (severe 7-10) Last Admin: 10/15/17 17:00 Dose: 0.5 mg Dextrose/Sodium Chloride (Dextrose 5%-1/2 Ns) 1,000 mls @ 125 mls/hr IV ASDIRECTED [facility] Last Admin: 10/15/17 14:42 Dose: 125 mls/hr Metronidazole 500 mg/ Premix 100 mls @ 100 mls/hr IV Q6H [facility] Last Admin: 10/16/17 08:28 Dose: 100 mls/hr Promethazine HCl 12.5 mg/ (Sodium Chloride) 50.5 mls @ 200 mls/hr IV Q6H PRN PRN Reason: Nausea/Vomiting Last Admin: 10/15/17 20:10 Dose: 200 mls/hr Montelukast Sodium (Singulair) 10 mg PO BEDTIME [facility] Last Admin: 10/15/17 20:47 Dose: 10 mg Nitroglycerin (Nitrostat) 0.4 mg SL Q5M PRN PRN Reason: Chest Pain Ondansetron HCl (Zofran) 4 mg IV Q6H PRN PRN Reason: Nausea/Vomiting Last Admin: 10/15/17 16:17 Dose: 4 mg Ondansetron HCl (Zofran Odt) 4 mg PO Q4H PRN PRN Reason: Nausea/Vomiting Last Admin: 10/15/17 19:35 Dose: 4 mg Pantoprazole Sodium (Protonix Iv) 40 mg IVPUSH DAILY [facility] Last Admin: 10/16/17 08:25 Dose: 40 mg Sertraline HCl (Zoloft) 100 mg PO BEDTIME [facility] Last Admin: 10/15/17 20:47 Dose: 100 mg Sodium Chloride (Syrex Flush) 5 ml FLUSH Q8HR PRN PRN Reason: Keep Vein Open Theophylline (Theophylline Anhydrous) 300 mg PO DAILY [facility] Last Admin: 10/16/17 08:27 Dose: 300 mg Trazodone HCl (Trazodone) 50 mg PO BEDTIME PRN PRN Reason: Sleep Last Admin: 10/15/17 20:47 Dose: 50 mg Discontinued Medications Hydromorphone HCl (Dilaudid) 0.5 mg IVPUSH ONETIME ONE Stop: 10/15/17 11:20 Last Admin: 10/15/17 11:47 Dose: 0.5 mg Sodium Chloride (Normal Saline) 1,000 mls @ 999 mls/hr IV .BOLUS ONE Stop: 10/15/17 12:09 Last Admin: 10/15/17 11:30 Dose: 999 mls/hr Sodium Chloride (Normal Saline) 50 mls @ 200 mls/hr IV ASDIRECTED [facility] Last Admin: 10/15/17 12:16 Dose: 200 mls/hr Metronidazole 500 mg/ Premix 100 mls @ 100 mls/hr IV Q6H [facility] Last Admin: 10/15/17 14:42 Dose: 100 mls/hr Multivitamins/Minerals 10 ml/ (Dextrose/Lactated Ringer's) 1,010 mls @ 125 mls/ hr IV ASDIRECTED [facility] Thiamine HCl 100 mg/ Sodium (Chloride) 101 mls @ 202 mls/hr IV ONETIME ONE Stop: 10/15/17 13:03 Last Admin: 10/15/17 16:03 Dose: Not Given Magnesium Sulfate 2 gm/ Premix 50 mls @ 150 mls/hr IV ONETIME ONE Stop: 10/15/17 13:26 Last Admin: 10/15/17 14:48 Dose: Not Given Multivitamins/Minerals 10 ml/ (Sodium Chloride) 1,010 mls @ 500 mls/hr IV ONETIME ONE Stop: 10/15/17 15:08 Last Admin: 10/15/17 14:48 Dose: Not Given Multivitamins/Minerals 10 ml/Thiamine HCl 100 mg/ Magnesium Sulfate 2 gm/ Dextrose/Sodium Chloride 1,015 mls @ 125 mls/hr IV ASDIRECTED [facility] Last Admin: 10/15/17 16:11 Dose: 125 mls/hr Sodium Chloride (Normal Saline) Confirm Administered Dose 100 mls @ as directed .ROUTE .STK-MED ONE Stop: 10/15/17 20:04 Last Admin: 10/15/17 20:43 Dose: 20 mls/hr Iopamidol (Isovue-300 (61%)) 75 ml IV ONETIME ONE Stop: 10/15/17 11:54 Last Admin: 10/15/17 12:16 Dose: 75 ml Ondansetron HCl (Zofran) 4 mg IVPUSH ONETIME ONE Stop: 10/15/17 11:20 Last Admin: 10/15/17 11:51 Dose: 4 mg Sodium Chloride (Syrex Flush) 5 ml FLUSH Q8HR PRN PRN Reason: Keep Vein Open - Exam Quality Assessment: No: Supplemental Oxygen General: Alert, Oriented, No Acute Distress Neck: No JVD Lungs: Decreased Breath Sounds. No: Crackles, Rales, Wheezing Cardiovascular: Regular Rate, Regular Rhythm GI/Abdominal Exam: Soft, No Distention, Other (Hyper bowel tones, tenderness left lower quadrant). No: Non-Tender, Guarding, Rigid, Rebound, Mass, Hepatomegaly, Splenomegaly (Male) Exam: No: Hernia, Scrotum Tenderness (L), Scrotum Tenderness (R), Testicular Tenderness (R) Extremities: No Pedal Edema Psy/Mental Status: Alert, Normal Affect, Normal Mood - Problem List Review Problem List Initiated/Reviewed/Updated: Yes - Plan Plan:: BRIEF HISTORY 72-year-old gentleman with long-standing and advanced stage IV COPD was admitted to the hospital complaining of LLQ abdominal pain with bloody stools with associated vomiting x 3 days along with bloody diarrhea quite significant frequently. Patient did have a successful left inguinal hernia repair 2 months ago. Patient was admitted with restrictive diet,antibiotics, IV fluids, pain control measures and anti-emetics Pertinent ED workup Abdominal CT distal sigmoid colon and proximal rectum inflammatory changes Hemoglobin 16.3 Neutrophils 78% INR 1.0 BUN 5 Assessment/Plan: --Colitis, Inflammatory markers improving, continue with Rocephin and metronidazole, Clear liquid diet with plans on advancing as soon as possible, Continue with hypotonic solution of D5 and half-normal saline however reduce risk of hyponatremia will reduce to 70 mL per hour --Rule out GI bleed, unlikely with BUN low, with normal H/H, stool for guaiac --EtOH abuse, continue with thiamine and folic acid and MVI, no signs of Wernicke's encephalopathy. Provided patient with supportive yet linked consequences to his current health status and EtOH use. Librium prophylaxis --Tobacco use/abuse: Pt does not tolerate nicoderm patch, Has skin reaction. nicorette gum prn. --COPD: Stage IV, stable, Continue JENS/BHUMIKA, LABA, ICS, montelukast, and theophylline. Assess theophylline levels --Health maintenance, GI prophylaxis PPI, DVT prophylaxis DARIN story & SCDs
[2017-10-16] MEDS: Dextrose 5%-0.45% NaCl 1,000 ML IV SCH (10:17)
[2017-10-16] MEDS: cefTRIAXone 1 GM Vial IVPUSH SCH (13:30)
[2017-10-16] MEDS ORDERED: Folic Acid 1 MG Tab PO SCH (21:00)
[2017-10-16] MEDS: Sertraline 50 MG Tab PO SCH (21:10)
[2017-10-16] MEDS: Montelukast 10 MG Tab PO SCH (21:10)
[2017-10-16] MEDS: Carboxymethylcellulose Sodium 0.5% Ophth Soln 15 ML Bottle EYEBOTH SCH (21:10)
[2017-10-16] MEDS: Thiamine 100 MG Tab PO SCH (21:10)
[2017-10-17] MEDS: traZODone 50 MG Tab PO PRN (01:33)
[2017-10-17] MEDS: Acetaminophen 325 MG Tab PO PRN (01:34)
[2017-10-17] MEDS: metroNIDAZOLE/Normal Saline 500 MG in Premix Bag 1 BAG IV SCH ×4 (02:44→20:18)
[2017-10-17] MEDS: Dextrose 5%-0.45% NaCl 1,000 ML IV SCH (02:47)
[2017-10-17] MEDS: Arformoterol 15 MCG/2 ML Neb Soln NEB SCH ×2 (07:18→20:16)
[2017-10-17] MEDS: Budesonide 0.5 MG/2 ML Neb Susp NEB SCH ×2 (07:18→20:16)
[2017-10-17] MEDS: Theophylline 300 MG Tab.ER PO SCH (09:13)
[2017-10-17] MEDS: Multivitamins with Minerals/Iron/Folic Acid/Lycopene Tab PO SCH (09:13)
[2017-10-17] MEDS: Pantoprazole 40 MG Vial IVPUSH SCH (09:13)
[2017-10-17] MEDS: Carboxymethylcellulose Sodium 0.5% Ophth Soln 15 ML Bottle EYEBOTH SCH ×3 (09:13→20:11)
--- NOTE | 2017-10-17 09:27 | PCM.PN ---
- General Info Date of Service: 10/17/17 Functional Status: Reports: Pain Controlled, Tolerating Diet, Ambulating, Urinating, Incentive Spirometry. Denies: New Symptoms - Review of Systems General: Reports: Appetite. Denies: Fever, Weakness, Fatigue Pulmonary: Reports: Cough, Sputum. Denies: Shortness of Breath Cardiovascular: Denies: Edema Gastrointestinal: Denies: Abdominal Pain, Decreased Appetite, Diarrhea, Nausea Genitourinary: Reports: No Symptoms Musculoskeletal: Reports: No Symptoms Skin: Reports: No Symptoms Neurological: Reports: No Symptoms Psychiatric: Reports: No Symptoms - Patient Data Vitals - Most Recent: Last Vital Signs Temp 97.6 F 10/17/17 06:51 Pulse 80 10/17/17 07:18 Resp 16 10/17/17 06:51 BP 131/77 10/17/17 06:51 Pulse Ox 95 10/17/17 07:18 Weight - Most Recent: 110 lb 3.2 oz I&O - Last 24 Hours: Intake & Output 10/16/17 10/17/17 10/17/17 22:59 06:59 14:59 Intake Total 1391 727 Output Total 300 Balance 1391 427 [place] Results Last 24 Hours: Microbiology 10/17/17 08:30 Stool Occult Blood ([place]) - Final Stool / Feces NEGATIVE OCCULT BLOOD Med Orders - Current: Current Medications Acetaminophen (Tylenol) 650 mg PO BID PRN PRN Reason: Pain Last Admin: 10/17/17 01:34 Dose: 650 mg Albuterol/Ipratropium (Duoneb 3.0-0.5 Mg/3 Ml) 3 ml NEB Q4H PRN PRN Reason: Shortness Of Breath/wheezing Albuterol/Ipratropium (Combivent Respimat) 0 gm INH QID PRN PRN Reason: Shortness of Breath Arformoterol Tartrate (Brovana) 15 mcg NEB BIDRT [facility] Last Admin: 10/17/17 07:18 Dose: 15 mcg Artificial Tears (Refresh Tears 0.5%) 0 ml EYEBOTH TID [facility] Last Admin: 10/17/17 09:13 Dose: 2 drop Budesonide (Pulmicort) 0.5 mg NEB BIDRT [facility] Last Admin: 10/17/17 07:18 Dose: 0.5 mg Ceftriaxone Sodium (Rocephin) 1 gm IVPUSH Q24H [facility] Last Admin: 10/16/17 13:30 Dose: 1 gm Chlordiazepoxide HCl (Librium) 25 mg PO TID PRN PRN Reason: Anxiety Last Admin: 10/15/17 18:06 Dose: 25 mg Folic Acid (Folic Acid) 1 mg PO BEDTIME [facility] Hydromorphone HCl (Dilaudid) 0.5 mg IVPUSH Q2H PRN PRN Reason: Pain (severe 7-10) Last Admin: 10/15/17 17:00 Dose: 0.5 mg Metronidazole 500 mg/ Premix 100 mls @ 100 mls/hr IV Q6H [facility] Last Admin: 10/17/17 09:13 Dose: 100 mls/hr Promethazine HCl 12.5 mg/ (Sodium Chloride) 50.5 mls @ 200 mls/hr IV Q6H PRN PRN Reason: Nausea/Vomiting Last Admin: 10/15/17 20:10 Dose: 200 mls/hr Dextrose/Sodium Chloride (Dextrose 5%-1/2 Ns) 1,000 mls @ 70 mls/hr IV ASDIRECTED [facility] Last Admin: 10/17/17 02:47 Dose: 70 mls/hr Montelukast Sodium (Singulair) 10 mg PO BEDTIME [facility] Last Admin: 10/16/17 21:10 Dose: 10 mg Multivitamins/Minerals (Centrum) 1 tab PO DAILY [facility] Last Admin: 10/17/17 09:13 Dose: 1 tab Nitroglycerin (Nitrostat) 0.4 mg SL Q5M PRN PRN Reason: Chest Pain Ondansetron HCl (Zofran) 4 mg IV Q6H PRN PRN Reason: Nausea/Vomiting Last Admin: 10/15/17 16:17 Dose: 4 mg Ondansetron HCl (Zofran Odt) 4 mg PO Q4H PRN PRN Reason: Nausea/Vomiting Last Admin: 10/15/17 19:35 Dose: 4 mg Pantoprazole Sodium (Protonix Iv) 40 mg IVPUSH DAILY [facility] Last Admin: 10/17/17 09:13 Dose: 40 mg Sertraline HCl (Zoloft) 100 mg PO BEDTIME [facility] Last Admin: 10/16/17 21:10 Dose: 100 mg Sodium Chloride (Syrex Flush) 5 ml FLUSH Q8HR PRN PRN Reason: Keep Vein Open Last Admin: 10/17/17 09:13 Dose: 5 ml Theophylline (Theophylline Anhydrous) 300 mg PO DAILY [facility] Last Admin: 10/17/17 09:13 Dose: 300 mg Thiamine HCl (Vitamin B-1) 100 mg PO BEDTIME [facility] Last Admin: 10/16/17 21:10 Dose: 100 mg Trazodone HCl (Trazodone) 50 mg PO BEDTIME PRN PRN Reason: Sleep Last Admin: 10/17/17 01:33 Dose: 50 mg Discontinued Medications Artificial Tears (Refresh Tears 0.5%) 0 ml EYEBOTH DAILY [facility] Last Admin: 10/16/17 10:16 Dose: 2 drop Folic Acid (Folic Acid) 1 mg PO DAILY [facility] Last Admin: 10/16/17 08:27 Dose: 1 mg Folic Acid (Folic Acid) 1 mg PO BEDTIME [facility] Hydromorphone HCl (Dilaudid) 0.5 mg IVPUSH ONETIME ONE Stop: 10/15/17 11:20 Last Admin: 10/15/17 11:47 Dose: 0.5 mg Sodium Chloride (Normal Saline) 1,000 mls @ 999 mls/hr IV .BOLUS ONE Stop: 10/15/17 12:09 Last Admin: 10/15/17 11:30 Dose: 999 mls/hr Sodium Chloride (Normal Saline) 50 mls @ 200 mls/hr IV ASDIRECTED [facility] Last Admin: 10/15/17 12:16 Dose: 200 mls/hr Metronidazole 500 mg/ Premix 100 mls @ 100 mls/hr IV Q6H [facility] Last Admin: 10/15/17 14:42 Dose: 100 mls/hr Multivitamins/Minerals 10 ml/ (Dextrose/Lactated Ringer's) 1,010 mls @ 125 mls/ hr IV ASDIRECTED [facility] Thiamine HCl 100 mg/ Sodium (Chloride) 101 mls @ 202 mls/hr IV ONETIME ONE Stop: 10/15/17 13:03 Last Admin: 10/15/17 16:03 Dose: Not Given Dextrose/Sodium Chloride (Dextrose 5%-1/2 Ns) 1,000 mls @ 125 mls/hr IV ASDIRECTED [facility] Last Admin: 10/15/17 14:42 Dose: 125 mls/hr Magnesium Sulfate 2 gm/ Premix 50 mls @ 150 mls/hr IV ONETIME ONE Stop: 10/15/17 13:26 Last Admin: 10/15/17 14:48 Dose: Not Given Multivitamins/Minerals 10 ml/ (Sodium Chloride) 1,010 mls @ 500 mls/hr IV ONETIME ONE Stop: 10/15/17 15:08 Last Admin: 10/15/17 14:48 Dose: Not Given Multivitamins/Minerals 10 ml/Thiamine HCl 100 mg/ Magnesium Sulfate 2 gm/ Dextrose/Sodium Chloride 1,015 mls @ 125 mls/hr IV ASDIRECTED [facility] Last Admin: 10/15/17 16:11 Dose: 125 mls/hr Sodium Chloride (Normal Saline) Confirm Administered Dose 100 mls @ as directed .ROUTE .STK-MED ONE Stop: 10/15/17 20:04 Last Admin: 10/15/17 20:43 Dose: 20 mls/hr Iopamidol (Isovue-300 (61%)) 75 ml IV ONETIME ONE Stop: 10/15/17 11:54 Last Admin: 10/15/17 12:16 Dose: 75 ml Ondansetron HCl (Zofran) 4 mg IVPUSH ONETIME ONE Stop: 10/15/17 11:20 Last Admin: 10/15/17 11:51 Dose: 4 mg Sodium Chloride (Syrex Flush) 5 ml FLUSH Q8HR PRN PRN Reason: Keep Vein Open - Exam Quality Assessment: No: Supplemental Oxygen General: Alert, Oriented Lungs: Decreased Breath Sounds. No: Wheezing Cardiovascular: Regular Rate, Regular Rhythm GI/Abdominal Exam: Normal Bowel Sounds, Soft, Non-Tender. No: Distended, Guarding, Rigid, Rebound, Tender, Hernia, Mass (Male) Exam: Deferred Extremities: No Pedal Edema Psy/Mental Status: Alert, Normal Affect, Normal Mood - Problem List Review Problem List Initiated/Reviewed/Updated: Yes - My Orders Last 24 Hours: My Active Orders 10/16/17 09:35 Antiembolic Hose [OM.PC] Routine SCD [Sequential Compression Device] [OM.PC] Routine 10/16/17 10:00 Dextrose 5%-0.45% NaCl [Dextrose 5%-1/2 NS] 1,000 ml IV ASDIRECTED 10/16/17 10:18 RT Incentive Spirometry [RC] ASDIRECTED 10/16/17 21:00 Carboxymethylcellulose Sodium [Refresh Tears 0.5%] 0 ml EYEBOTH TID Thiamine [Vitamin B-1] 100 mg PO BEDTIME 10/17/17 08:30 Guaiac [OCCULT BLOOD DIAGNOSTIC] [OP] Routine 10/17/17 09:00 FA/Lycopene/Lut/MV,Ca,Iron,Min [Centrum] 1 tab PO DAILY 10/17/17 21:00 Folic Acid 1 mg PO BEDTIME - Plan Plan:: BRIEF HISTORY 72-year-old gentleman with long-standing and advanced stage IV COPD was admitted to the hospital complaining of LLQ abdominal pain with bloody stools with associated vomiting x 3 days along with bloody diarrhea quite significant frequently. Patient did have a successful left inguinal hernia repair 2 months ago. Patient was admitted with restrictive diet,antibiotics, IV fluids, pain control measures and anti-emetics Pertinent ED workup Abdominal CT distal sigmoid colon and proximal rectum inflammatory changes Hemoglobin 16.3 Neutrophils 78% INR 1.0 BUN 5 Update today, patient doing well, much less abdominal pain, no nausea no vomiting, voiding, increased appetite, no fever. Guaiac stools negative Assessment/Plan: --Colitis, Inflammatory markers continue to improve. continue with Rocephin and metronidazole, advanced diet today. Continue with hypotonic solution of D5 and half-normal saline will discontinue tonight at 1999. --Rule out GI bleed, unlikely with BUN low, with normal H/H, stool for guaiac negative --EtOH abuse, continue with thiamine and folic acid and MVI, no signs of Wernicke's encephalopathy. Provided patient with supportive yet linked consequences to his current health status and EtOH use. Librium prophylaxis --Tobacco use/abuse: Pt does not tolerate nicoderm patch, Has skin reaction. nicorette gum prn. --COPD: Stage IV, stable, Continue JENS/BHUMIKA, LABA, ICS, montelukast, and theophylline. Assess theophylline levels --Health maintenance, GI prophylaxis PPI, DVT prophylaxis DARIN story & SCDs Overall plan, will continue inpatient 24 more hours, advance diet today, pain control with acetaminophen, IV antibiotics, saline lock IV fluids tonight, upon discharge will add PPI, long discussion regarding EtOH abuse and deleterious effects on health--difficult to determine stage of change
[2017-10-17] MEDS ORDERED: Acetaminophen 325 MG Tab PO PRN (10:20)
[2017-10-17] MEDS: cefTRIAXone 1 GM Vial IVPUSH SCH (13:39)
[2017-10-17] MEDS: Thiamine 100 MG Tab PO SCH (20:20)
[2017-10-17] MEDS: Montelukast 10 MG Tab PO SCH (20:21)
[2017-10-17] MEDS: Sertraline 50 MG Tab PO SCH (20:21)
[2017-10-17] MEDS ORDERED: Folic Acid 1 MG Tab PO SCH (21:00)
[2017-10-18] MEDS: metroNIDAZOLE/Normal Saline 500 MG in Premix Bag 1 BAG IV SCH ×2 (03:15→08:47)
[2017-10-18 06:14] VITALS: BP 138/78
[2017-10-18] MEDS: Arformoterol 15 MCG/2 ML Neb Soln NEB SCH (07:34)
[2017-10-18] MEDS: Budesonide 0.5 MG/2 ML Neb Susp NEB SCH (07:34)
[2017-10-18 08:17] LABS: CHLORIDE,CL 98 mmol/L (98-115); SODIUM,NA 140 mmol/L (136-145)
[2017-10-18] MEDS ORDERED: Potassium Chloride 20 MEQ in Premix Bag 1 BAG IV ONE (08:43)
[2017-10-18] MEDS: Pantoprazole 40 MG Vial IVPUSH SCH (08:47)
[2017-10-18] MEDS: Carboxymethylcellulose Sodium 0.5% Ophth Soln 15 ML Bottle EYEBOTH SCH (08:48)
[2017-10-18] MEDS: Multivitamins with Minerals/Iron/Folic Acid/Lycopene Tab PO SCH (08:49)
[2017-10-18] MEDS: Theophylline 300 MG Tab.ER PO SCH (08:49)
[2017-10-18] MEDS ORDERED: Potassium Chloride 25 MEQ Powder Packet PO SCH (09:00)
[2017-10-18] MEDS ORDERED: Potassium Bicarbonate/Potassium Chloride 25 MEQ Tab.Eff PO SCH (10:45)
--- NOTE | 2017-10-19 08:48 | DISCH ---
FINAL DIAGNOSES: Colitis, rule out GI bleed which has been ruled out; ETOH abuse; tobacco abuse; chronic obstructive pulmonary disease stage IV, stable. HISTORY: This 72-year-old gentleman with longstanding and advanced stage IV COPD was admitted to the hospital complaining of left lower quadrant abdominal pain with bloody stools with associated vomiting for three days prior to coming in. He also was complaining of bloody diarrhea quite frequently. The patient did have successful left inguinal hernia repair two months ago. He was admitted with restrictive diet, antibiotics, IV fluids, pain control measures, and antiemetics. Pertinent ED workup included abdominal CT of the distal sigmoid colon and proximal rectum inflammatory changes. Hemoglobin 16.3, neutrophils 78%. He had a BUN of 5. HOSPITAL COURSE: Hospital course went well. He was treated for his colitis with IV of metronidazole and Rocephin. His inflammatory markers continued to improve. His diet was advanced each day. He did require Dilaudid early on pain medication. However, it was controlled eventually with Tylenol and Dilaudid was discontinued. He was treated with hypotonic solution of D5 and half-normal saline. He maintained his oral hydration well. GI bleed was ruled out. He had a low BUN. His H and H were normal. Stool for guaiac was negative. He was treated with thiamine, folic acid, multivitamin initially IV due to his ETOH abuse. He had no signs of Wernicke's encephalopathy. He was placed on Librium prophylaxis. The patient does not tolerate nicotine patch. He has skin reaction, so nicotine gum was used as needed. His theophylline level was assessed. It was very subtherapeutic. He will be discharged on increase of theophylline level of maximum 600 mg p.o. daily. Health maintenance, GI prophylaxis of PPI therapy was started. He will be discharged with PPI therapy. PHYSICAL EXAM ON DISCHARGE: VITAL SIGNS: Temperature 99.7, heart rate 84, O2 sats 96% on room air. LUNGS: Had decreased breath sounds, however, this was chronic for him. No wheezing. No shortness of breath. We continued on his regular home respiratory medications. CV: Regular rate and rhythm. ABDOMEN: He had no abdominal pain. No abdominal distention. Good bowel tones on discharge. LABS: Initially white count 10.4 on admission, on discharge it was 8.8. Neutrophils were decreasing to 72%. He did have a low potassium level at 3.0 on day of discharge, however, this was replaced prior to him being discharged. Sodium 140, potassium 3.0, BUN 5, creatinine 0.52. Lipase normal. AST slightly elevated at 64, normal ALT. Alkaline phosphatase slightly elevated at 126. His urine did show rare hyaline casts, however, otherwise unremarkable. Theophylline level was less than 2.5 (reference range 10 to 20). Microbiology report: Negative for occult blood was normal. MEDICATION ADJUSTMENTS AND CHANGES ON DISCHARGE: Omeprazole 20 mg p.o. daily (newly added); theophylline increased from 300 to 600 mg p.o. daily; metronidazole 500 mg p.o. q.8 hours x5 days, #15 given (newly added). The patient can continue on all other home medications. All medications were refilled except his statin therapy. DISPOSITION: The patient will be discharged from the hospital. He will follow with myself next week early. He is to report any increase in abdominal pain, vomiting, any signs and symptoms of GI bleed, fever, will bring all his medications in when he comes to the followup clinic. FOLLOW-UP RECOMMENDATIONS: Ensure he is compliant with b.i.d. theophylline maximum dose. /[id number]/MODL
== END 2017-10-18 13:03 | disposition home or self-care (01) | DRG 392 ==
LOC: KA.ED 11:06 → OBSVTOIN 12:54 → KA.MS 12:54
PROVIDERS: ADMIT Physician Assistant Medical; ATTEND Nurse Practitioner Family
DX: K52.9 Noninfective gastroenteritis and colitis, unspecified (principal); R11.10 Vomiting, unspecified; R19.7 Diarrhea, unspecified; E03.9 Hypothyroidism, unspecified; J44.9 Chronic obstructive pulmonary disease, unspecified; F41.8 Other specified anxiety disorders; I25.10 Atherosclerotic heart disease of native coronary artery without angina pectoris; I25.2 Old myocardial infarction; F10.10 Alcohol abuse, uncomplicated; F17.200 Nicotine dependence, unspecified, uncomplicated; Z98.890 Other specified postprocedural states; Z88.8 Allergy status to other drugs, medicaments and biological substances; Z79.899 Other long term (current) drug therapy; Z85.46 Personal history of malignant neoplasm of prostate; Z87.820 Personal history of traumatic brain injury; Z95.5 Presence of coronary angioplasty implant and graft
CPT/HCPCS: 36415; 71046; 74177; 80048; 80053; 80198; 81001; 82272; 83690; 83735; 85025; 85610; 85730; 94640; 96374; 96375; 99284; 99285; A9270-GY; C9113; J0696; J1170; J2405; J2550; J3411; J3475; J3480; J7030; J7042; J7050; Q9967

== ENCOUNTER 2018-08-29 15:07 | Observation (INO) | payer MEDICARE, MEDICAID ==
[2018-08-29] MEDS: Sodium Chloride 0.9% 1,000 ML IV SCH (16:51)
[2018-08-29] MEDS ORDERED: Albuterol/Ipratropium 4 GM Inhalation Spray INH PRN (19:19)
[2018-08-29] MEDS ORDERED: Nitroglycerin 0.4 MG Tab.SL SL PRN (19:19)
[2018-08-29] MEDS ORDERED: traZODone 50 MG Tab PO PRN (19:19)
[2018-08-29] MEDS: Albuterol/Ipratropium 3.0-0.5 MG/3 ML Neb Soln NEB SCH (20:43)
[2018-08-29] MEDS: Sertraline 50 MG Tab PO SCH (20:45)
[2018-08-29] MEDS: Fluticasone Propionate Nasal Spray 16 GM Bottle NASBOTH SCH (20:45)
[2018-08-29] MEDS: Acetaminophen 325 MG Tab PO PRN (20:46)
[2018-08-29] MEDS: predniSONE 20 MG Tab PO SCH (20:47)
[2018-08-29] MEDS: atorvaSTATin 10 MG Tab PO SCH (20:47)
[2018-08-30] MEDS: Sodium Chloride 0.9% 1,000 ML IV SCH ×2 (06:15→19:42)
[2018-08-30] MEDS: Albuterol/Ipratropium 3.0-0.5 MG/3 ML Neb Soln NEB SCH ×6 (07:29→21:11)
[2018-08-30] MEDS: Acetaminophen 325 MG Tab PO PRN (07:38)
[2018-08-30 08:36] LABS: ANION GAP 14.1 mmol/L (5-15); CHLORIDE,CL 100 mmol/L (98-115); SODIUM,NA 141 mmol/L (136-145)
[2018-08-30] MEDS: Montelukast 10 MG Tab PO SCH (08:49)
[2018-08-30] MEDS: Magnesium Oxide 500 MG Tab PO SCH (08:49)
[2018-08-30] MEDS: predniSONE 20 MG Tab PO SCH ×2 (08:49→20:09)
[2018-08-30] MEDS: Potassium Chloride 20 MEQ Tab.ER PO SCH (08:49)
[2018-08-30] MEDS: Sodium Chloride 0.65% Nasal Spray 45 ML Bottle NASBOTH SCH (08:50)
[2018-08-30] MEDS: Multivitamins with Minerals/Iron/Folic Acid/Lycopene Tab PO SCH (08:50)
[2018-08-30] MEDS: Fluticasone Propionate Nasal Spray 16 GM Bottle NASBOTH SCH ×2 (08:50→20:09)
[2018-08-30] MEDS: Theophylline 300 MG Tab.ER PO SCH (08:51)
[2018-08-30] MEDS: Carboxymethylcellulose Sodium 0.5% Ophth Soln 15 ML Bottle EYEBOTH SCH ×2 (08:51→18:11)
[2018-08-30] MEDS ORDERED: Folic Acid 1 MG Tab PO SCH (09:00)
[2018-08-30] MEDS ORDERED: Potassium Chloride 10 MEQ Tab.ER PO SCH (09:00)
[2018-08-30] MEDS ORDERED: Trolamine Salicylate/Aloe Vera 10% Crm 85 GM Tube TOP PRN (09:44)
[2018-08-30] MEDS ORDERED: Albuterol 8 GM Inhaler INH SCH (10:30)
[2018-08-30] MEDS: atorvaSTATin 10 MG Tab PO SCH (20:09)
[2018-08-30] MEDS: Sertraline 50 MG Tab PO SCH (20:09)
--- NOTE | 2018-08-30 21:10 | PCM.PN ---
- General Info Date of Service: 08/30/18 Subjective Update: Mr. Wong overall feels much better this morning. He denies any bowel movements or emesis since arrival. Intake is still poor, but he's hopeful he's starting to have appetite improve. Reports his breathing is improved from admission; was weaned off oxygen earlier today. No new symptoms since arrival. Has been smoking about 5 cigarettes per day and declines wishing to cut back. Has chronic neck pain and stiffness, which is at his baseline. Has dramatically cut back his drinking in the past few months to years, now stating he has one beer every couple weeks. Nursing reports no concerns. - Patient Data Vitals - Most Recent: Last Vital Signs Temp 36.8 C 08/30/18 15:00 Pulse 82 08/30/18 16:37 Resp 16 08/30/18 15:00 BP 130/76 08/30/18 15:00 Pulse Ox 94 L 08/30/18 16:37 Weight - Most Recent: 49.941 kg I&O - Last 24 Hours: Intake & Output 08/30/18 08/30/18 08/30/18 06:59 14:59 22:59 Intake Total 350 620 Output Total 900 Balance -550 620 Lab Results Last 24 Hours: Laboratory Results - last 24 hr 08/30/18 08/30/18 Range/Units 08:00 08:00 WBC 6.12 (5.00-10.00) 10^3/uL RBC 3.71 L (4.50-6.00) 10^6/uL Hgb 13.7 (13.0-17.0) g/dL Hct 41.0 (40.0-52.0) % MCV 110.5 H D (82.0-92.0) fL MCH 36.9 H (27.0-31.0) pg MCHC 33.4 (32.0-36.0) g/dL RDW 13.0 (11.5-14.5) % Plt Count 194 (150-400) 10^3/uL MPV 9.3 (7.4-10.4) fL Immature Gran % (Auto) 0.2 (0.0-5.0) % Neut % (Auto) 69.6 (50.0-70.0) % Lymph % (Auto) 15.0 L (20.0-40.0) % Stan[place] % (Auto) 14.7 H (2.0-8.0) % Eos % (Auto) 0.2 L (1.0-3.0) % Baso % (Auto) 0.3 (0.0-1.0) % Immature Gran # (Auto) 0.01 (0.00-0.50) 10^3/uL Neut # (Auto) 4.26 (2.50-7.00) 10^3/uL Lymph # (Auto) 0.92 L (1.00-4.00) 10^3/uL Stanly # (Auto) 0.90 H (0.10-0.80) 10^3/uL Eos # (Auto) 0.01 L (0.10-0.30) 10^3/uL Baso # (Auto) 0.02 (0.00-0.10) 10^3/uL Sodium 141 (136-145) mmol/L Potassium 3.4 (3.3-5.3) mmol/L Chloride 100 (98-115) mmol/L Carbon Dioxide 30.3 (21.0-32.0) mmol/L Anion Gap 14.1 (5-15) mmol/L BUN 13 (6-25) mg/dL Creatinine 0.72 (0.51-1.17) mg/dL Est Cr Clr Drug Dosing 66.47 mL/min Estimated GFR (MDRD) > 60 mL/min Glucose 118 H (75 - 99) mg/dL Calcium 8.9 (8.7-10.3) mg/dL Med Orders - Current: Current Medications Acetaminophen (Tylenol) 650 mg PO Q4HR PRN PRN Reason: Pain Last Admin: 08/30/18 07:38 Dose: 650 mg Albuterol/Ipratropium (Combivent Respimat) 0 gm INH Q4H PRN PRN Reason: Shortness of Breath Albuterol/Ipratropium (Duoneb 3.0-0.5 Mg/3 Ml) 3 ml NEB QIDRT [facility] Last Admin: 08/30/18 16:36 Dose: 3 ml Artificial Tears (Refresh Tears 0.5%) 0 ml EYEBOTH DAILY [facility] Last Admin: 08/30/18 18:11 Dose: 2 drop Atorvastatin Calcium (Lipitor) 20 mg PO BEDTIME [facility] Last Admin: 08/30/18 20:09 Dose: 20 mg Fluticasone Propionate (Flonase) 0 gm NASBOTH BID [facility] Last Admin: 08/30/18 20:09 Dose: 1 spray Folic Acid (Folic Acid) 0.4 mg PO DAILY [facility] Sodium Chloride (Normal Saline) 1,000 mls @ 75 mls/hr IV ASDIRECTED [facility] Last Admin: 08/30/18 19:42 Dose: 75 mls/hr Magnesium Oxide (Magnesium Oxide) 250 mg PO DAILY [facility] Last Admin: 08/30/18 08:49 Dose: 250 mg Montelukast Sodium (Singulair) 10 mg PO DAILY [facility] Last Admin: 08/30/18 08:49 Dose: 10 mg Multivitamins/Minerals (Centrum) 1 tab PO DAILY [facility] Last Admin: 08/30/18 08:50 Dose: 1 tab Nitroglycerin (Nitrostat) 0.4 mg SL Q5M PRN PRN Reason: Chest Pain Potassium Chloride (Klor-Con M20) 20 meq PO DAILY [facility] Last Admin: 08/30/18 08:49 Dose: 20 meq Prednisone (Prednisone) 20 mg PO BID [facility] Stop: 09/03/18 09:00 Last Admin: 08/30/18 20:09 Dose: 20 mg Sertraline HCl (Zoloft) 100 mg PO BEDTIME [facility] Last Admin: 08/30/18 20:09 Dose: 100 mg Sodium Chloride ([place] Nasal Slater) 0 ml NASBOTH DAILY [facility] Last Admin: 08/30/18 08:50 Dose: 1 spray Theophylline (Theophylline Anhydrous) 300 mg PO DAILY [facility] Last Admin: 08/30/18 08:51 Dose: 300 mg Trazodone HCl (Trazodone) 50 mg PO BEDTIME PRN PRN Reason: Sleep Last Admin: 08/29/18 20:47 Dose: 50 mg Trolamine Salicylate (Aspercreme 10%) 0 gm TOP Q1H PRN PRN Reason: Pain Discontinued Medications Albuterol/Ipratropium (Duoneb 3.0-0.5 Mg/3 Ml) 3 ml NEB QID [facility] Last Admin: 08/30/18 08:50 Dose: Not Given Potassium Chloride (Klor-Con 10) 20 meq PO DAILY [facility] - Exam Physical Findings Comments:: GENERAL: Chronically ill and cachectic appearing elderly white male appearing older than stated age sitting in bedside chair in no acute distress. HEENT: Normocephalic, atraumatic. Conjunctiva clear. Nares patent without discharge. Mucous membranes moist, posterior pharynx unremarkable. NECK: Supple, no masses. CV: Regular rate and rhythm, no murmurs, rubs, or gallops. 2+ radial pulses. PULMONARY: Normal effort, diminished in bases bilaterally, no wheezes, rales, or rhonchi. ABDOMEN: Positive bowel sounds, soft, nontender, nondistended. EXTREMITIES: No edema, cyanosis, or clubbing. MUSCULOSKELETAL: Moves all extremities well. NEUROLOGICAL: No obvious deficits. DERMATOLOGIC: No rashes or suspicious lesions in exposed areas. PSYCHIATRIC: Alert, interactive, appropriate affect. - Problem List Review Problem List Initiated/Reviewed/Updated: Yes - My Orders Last 24 Hours: My Active Orders 08/30/18 09:44 Trolamine Salicylate/Aloe Vera [Aspercreme 10%] 0 gm TOP Q1H PRN 08/30/18 10:18 RT Post Treatment Assessment [RC] Click to Edit RT Pre-Treatment Assessment [RC] Click to Edit - Plan Plan:: HPI summary: 73yoM with a history notable for COPD, lymphoma without any recent care, and history of chronic alcoholism, who was seen in the [facility] on for diarrhea and weakness. He was noted to be hypoxic and ill appearing. Labs showed evidence of mild dehydration, but overall otherwise without significant concerns. He was admitted to observation status for further monitoring and management. Hospital course: Since arrival he has not had any diarrhea or emesis, and has had improvement in subjective GI symptoms. He has successfully been weaned off oxygen as well. Given his ongoing poor appetite and poor baseline functional status, will continue monitoring with the plan to discharge to home at that time if no concerns arise. Repeat CBC and BMP in AM. Hospitalization problems: # Acute hypoxic respiratory failure: Initially requiring 3lpm. Now off oxygen. # COPD, with acute exacerbation: Improved. Continue prednisone 20mg BID, planned for 5 day course. Continue baseline medications of Singulair, theophylline, and DuoNeb/Combivent prn. Theophylline level pending. # Acute gastroenteritis: Improving. # Hx bloody diarrhea: None since arrival. Hgb wnl. # Possible hx gross hematuria: In setting of bloody diarrhea. Umicro with no RBCs. # Dehydration: Improving. Continue NS 75cc/hr and advancement of diet. # Macroyctosis: B12 and folate pending. # Hypokalemia: Wnl today. Continue supplementation. # Hypocalcemia: Resolved. Chronic, stable conditions: # HLD: Continue atorvastatin 20mg. # Hypomagnesmia: Admission level wnl. Continue supplementation. # Protein calorie malnutrition: Consider silk spreader referral as outpatient. Continue MV. # Chronic rhinitis: Stable. Continue Flonase, nasal saline. # Depression, major, recurrent: Currently in remission. Continue sertraline 100mg daily. # Insomnia: Stable. Continue trazodone. # Tobacco dependence: Precontemplative stage of change. Declines need for nicotine replacement. # Alcohol dependence: In remission. Support provided. Continue folic acid. # Chronic neck pain: XR C-spine obtained on admission with interpretation pending. Continue Tylenol prn. Aspercreme ordered, per patient request. # Deconditioning/debility: Likely would benefit from therapy and other services , but patient declines. Hospitalization details: # FEN: NS @ 75cc/hr. Electrolytes wnl. Regular diet. # PPX: Enoxaparin for DVT ppx. Melatonin for delirium ppx. # Code status: FULL. # Emergency contact: Sister, Hamida To. # Disposition: Continue in observation status. Anticipate discharge to home tomorrow if no concerns arise.
[2018-08-30] MEDS ORDERED: Ondansetron 4 MG/2 ML SDV IVPUSH PRN (22:00)
[2018-08-31] MEDS: Albuterol/Ipratropium 3.0-0.5 MG/3 ML Neb Soln NEB SCH ×2 (05:59→11:43)
[2018-08-31 06:24] VITALS: BP 133/77
[2018-08-31 08:33] LABS: ANION GAP 18.3 mmol/L (5-15); CHLORIDE,CL 100 mmol/L (98-115); SODIUM,NA 143 mmol/L (136-145)
[2018-08-31] MEDS: Carboxymethylcellulose Sodium 0.5% Ophth Soln 15 ML Bottle EYEBOTH SCH (09:12)
[2018-08-31] MEDS: Fluticasone Propionate Nasal Spray 16 GM Bottle NASBOTH SCH ×2 (09:12→09:29)
[2018-08-31] MEDS: Sodium Chloride 0.65% Nasal Spray 45 ML Bottle NASBOTH SCH (09:12)
[2018-08-31] MEDS: Theophylline 300 MG Tab.ER PO SCH (09:13)
[2018-08-31] MEDS: Potassium Chloride 20 MEQ Tab.ER PO SCH (09:13)
[2018-08-31] MEDS: Montelukast 10 MG Tab PO SCH (09:13)
[2018-08-31] MEDS: Magnesium Oxide 500 MG Tab PO SCH (09:13)
[2018-08-31] MEDS: Multivitamins with Minerals/Iron/Folic Acid/Lycopene Tab PO SCH (09:13)
[2018-08-31] MEDS: predniSONE 20 MG Tab PO SCH (09:13)
--- NOTE | 2018-09-04 01:40 | PCM.DCSUM1 ---
Discharge Summary - Hospital Course Free Text/Narrative:: Date of admission: 08/29/18 Date of discharge: 08/30/18 Admission diagnoses: 1. Acute hypoxic respiratory failure 2. COPD, with acute exacerbation 3. Acute gastroenteritis 4. Hx bloody diarrhea 5. Possible hx gross hematuria 6. Dehydration 7. Macroyctosis 8. Hypokalemia 9. Hypocalcemia 10. Chronic neck pain 11. Deconditioning 12. Tobacco dependence Discharge diagnoses: 1. Acute hypoxic respiratory failure, resolved 2. COPD, with acute exacerbation 3. Acute gastroenteritis, resolved 4. Hx bloody diarrhea, resolved 5. Possible hx gross hematuria, not noted during stay 6. Dehydration, resolved 7. Macroyctosis 8. Hypokalemia, resolved 9. Hypocalcemia, resolved 10. Chronic neck pain 11. Deconditioning 12. Tobacco dependence Hospital course: 73yoM with a history notable for COPD, lymphoma without any recent care, and history of chronic alcoholism, who was seen in the [facility] on for diarrhea and weakness. He was noted to be hypoxic and ill appearing. Labs showed evidence of mild dehydration, but overall otherwise without significant concerns. He was admitted to observation status for further monitoring and management. He initially required 3lpm via nasal cannula, but was successfully weaned off oxygen and had excellent improvement in pulmonary status on his baseline COPD medications, including DuoNebs prn, and prednisone burst with 20mg BID. Theophylline level was not noted to be in toxic range. Throughout his stay, he did not have any diarrhea or emesis and stool studies were cancelled. His urine was also noted to be without RBCs. B12 and folate were obtained due to macrocytosis, and normal. He was continued on other medications for chronic medical conditions. He declined wishing to stop smoking. No concerns arose during his stay and he wished to be discharged to home without services, though assistance with medication management was discussed and declined. Discharge medication changes: - Continue prednisone 20mg BID to complete 5 day course Follow-up recommendations: - Clinic appt within 5-7 days; emphasized the importance of regular care as it had been over a year since last visit prior to hospitalization - Consider building drafting officer referral for protein calorie malnutrition - Encourage tobacco cessation and support ongoing alcohol sobriety - Consider physical therapy referral for deconditioning - Discharge Data Discharge Date: 08/31/18 Discharge Disposition: Home, Self-Care 01 Condition: Good - Patient Instructions Diet: Usual Diet as Tolerated Activity: As Tolerated Showering/Bathing: May Shower Notify Provider of: Fever, Increased Pain - Discharge Plan *PRESCRIPTION DRUG MONITORING PROGRAM REVIEWED*: Not Applicable *COPY OF PRESCRIPTION DRUG MONITORING REPORT IN PATIENT ADIA: Not Applicable Prescriptions/Med Rec: Ondansetron [Zofran ODT] 4 mg PO Q6H PRN #20 tab.dis PRN Reason: Nausea predniSONE 40 mg PO DAILY 3 Days #6 tablet Home Medications: Home Meds Nitroglycerin [Nitrostat] 0.4 mg SL Q5M PRN 01/23/15 [History] traZODone 50 mg PO BEDTIME PRN 01/23/15 [History] Acetaminophen [Tylenol] 650 mg PO BID PRN 12/01/16 [History] atorvaSTATin [Lipitor] 20 mg PO BEDTIME 01/20/17 [History] Sertraline HCl [Zoloft] 100 mg PO BEDTIME 10/15/17 [History] Ca/D3/Mag Ox/Zinc/Rod Buster Helper/Benoit/Bor [Calcium 600-D3 Plus Caplet] 1 tab PO DAILY #90 tablet 10/18/17 [Rx] Carboxymethylcellulos/Glycerin [Lubricant 0.5-0.9% Eye Drops] 2 drop EYEBOTH DAILY #15 ml 10/18/17 [Rx] Multivitamin/Iron/Folic Acid [Multi-Day Plus Iron Tablet] 1 each PO DAILY #30 tablet 10/18/17 [Rx] Acetaminophen 650 mg PO Q4HR PRN 08/29/18 [History] Albuterol/Ipratropium [Combivent Respimat] 1 puff IH Q4H PRN 08/29/18 [History] Albuterol/Ipratropium [DuoNeb 3.0-0.5 MG/3 ML] 3 ml NEB QID 08/29/18 [History] Aspirin 325 mg PO DAILY 08/29/18 [History] Docusate Sodium [Colace] 100 mg PO DAILY PRN 08/29/18 [History] Fluticasone Propionate [Flonase] 1 spray NASBOTH BID 08/29/18 [History] Magnesium Oxide 250 mg PO DAILY 08/29/18 [History] Montelukast [Singulair] 10 mg PO DAILY 08/29/18 [History] Naproxen 250 mg PO DAILY 08/29/18 [History] Polymyxin B/Trimethoprim [PolyTrim Ophth Soln] 1 drop EYEBOTH ASDIRECTED [History] Sodium Chloride/Aloe Vera [[place] Saline Nasal Gel [place]] 1 spray NASBOTH DAILY 05/19 [History] Albuterol [Proventil HFA] 1 puff INH Q4H 08/30/18 [History] Magnesium 250 mg PO DAILY 08/30/18 [History] Non-Formulary Medication [NF Drug] 1,000 mcg PO DAILY 08/30/18 [History] Theophylline [Theophylline Anhydrous] 300 mg PO BID 08/30/18 [History] Ondansetron [Zofran ODT] 4 mg PO Q6H PRN #20 tab.dis 08/31/18 [Rx] predniSONE 40 mg PO DAILY 3 Days #6 tablet 08/31/18 [Rx] Referrals: Glen Velasquez EARRINGS FABRICATOR [Nurse Practitioner] - (Or other provider at [facility] next [facility] - Discharge Summary/Plan Comment DC Time >30 min.: Yes - General Info Subjective Update: Mr. Wong overall feels back to baseline this morning. He denies any bowel movements or emesis since arrival. Appetite has improved. Breathing is at baseline. Continues to decline wishing to cut back on smoking. Nursing reports no concerns. - Patient Data Vitals - Most Recent: Last Vital Signs Temp 37.1 C 08/31/18 06:23 Pulse 85 08/31/18 11:47 Resp 20 08/31/18 06:23 BP 133/77 08/31/18 06:23 Pulse Ox 91 L 08/31/18 11:47 Weight - Most Recent: 49.941 kg JENNIFER Results - Last 24 hrs: Microbiology 08/30/18 08:00 Respiratory Culture - Preliminary Sputum - Expectorated Pseudomonas Aeruginosa Acinetobacter Baumannii Complx Gram Stain - Final Med Orders - Current: Current Medications Discontinued Medications Acetaminophen (Tylenol) 650 mg PO Q4HR PRN PRN Reason: Pain Last Admin: 08/30/18 07:38 Dose: 650 mg Albuterol/Ipratropium (Combivent Respimat) 0 gm INH Q4H PRN PRN Reason: Shortness of Breath Albuterol/Ipratropium (Duoneb 3.0-0.5 Mg/3 Ml) 3 ml NEB QID [facility] Last Admin: 08/30/18 21:11 Dose: 3 ml Albuterol/Ipratropium (Duoneb 3.0-0.5 Mg/3 Ml) 3 ml NEB QIDRT [facility] Last Admin: 08/31/18 11:43 Dose: 3 ml Artificial Tears (Refresh Tears 0.5%) 0 ml EYEBOTH DAILY [facility] Last Admin: 08/31/18 09:12 Dose: 1 drop Atorvastatin Calcium (Lipitor) 20 mg PO BEDTIME [facility] Last Admin: 08/30/18 20:09 Dose: 20 mg Fluticasone Propionate (Flonase) 0 gm NASBOTH BID [facility] Last Admin: 08/31/18 09:29 Dose: Not Given Folic Acid (Folic Acid) 0.4 mg PO DAILY [facility] Sodium Chloride (Normal Saline) 1,000 mls @ 75 mls/hr IV ASDIRECTED [facility] Last Admin: 08/30/18 19:42 Dose: 75 mls/hr Magnesium Oxide (Magnesium Oxide) 250 mg PO DAILY [facility] Last Admin: 08/31/18 09:13 Dose: 250 mg Montelukast Sodium (Singulair) 10 mg PO DAILY [facility] Last Admin: 08/31/18 09:13 Dose: 10 mg Multivitamins/Minerals (Centrum) 1 tab PO DAILY [facility] Last Admin: 08/31/18 09:13 Dose: 1 tab Nitroglycerin (Nitrostat) 0.4 mg SL Q5M PRN PRN Reason: Chest Pain Ondansetron HCl (Zofran) 4 mg IVPUSH Q4H PRN PRN Reason: Nausea/Vomiting Last Admin: 08/30/18 22:23 Dose: 4 mg Potassium Chloride (Klor-Con 10) 20 meq PO DAILY [facility] Potassium Chloride (Klor-Con M20) 20 meq PO DAILY [facility] Last Admin: 08/31/18 09:13 Dose: 20 meq Prednisone (Prednisone) 20 mg PO BID [facility] Stop: 09/03/18 09:00 Last Admin: 08/31/18 09:13 Dose: 20 mg Sertraline HCl (Zoloft) 100 mg PO BEDTIME [facility] Last Admin: 08/30/18 20:09 Dose: 100 mg Sodium Chloride ([place] Nasal [place]) 0 ml NASBOTH DAILY [facility] Last Admin: 08/31/18 09:12 Dose: 1 spray Theophylline (Theophylline Anhydrous) 300 mg PO DAILY [facility] Last Admin: 08/31/18 09:13 Dose: 300 mg Trazodone HCl (Trazodone) 50 mg PO BEDTIME PRN PRN Reason: Sleep Last Admin: 08/29/18 20:47 Dose: 50 mg Trolamine Salicylate (Aspercreme 10%) 0 gm TOP Q1H PRN PRN Reason: Pain - Exam Physical Findings Comments:: GENERAL: Chronically ill and cachectic appearing elderly white male appearing older than stated age sitting in bedside chair in no acute distress. HEENT: Normocephalic, atraumatic. Conjunctiva clear. Nares patent without discharge. Mucous membranes moist, posterior pharynx unremarkable. NECK: Supple, no masses. CV: Regular rate and rhythm, no murmurs, rubs, or gallops. 2+ radial pulses. PULMONARY: Normal effort, diminished in bases bilaterally, no wheezes, rales, or rhonchi. ABDOMEN: Positive bowel sounds, soft, nontender, nondistended. EXTREMITIES: No edema, cyanosis, or clubbing. MUSCULOSKELETAL: Moves all extremities well. NEUROLOGICAL: No obvious deficits. DERMATOLOGIC: No rashes or suspicious lesions in exposed areas. PSYCHIATRIC: Alert, interactive, appropriate affect.
== END 2018-08-31 12:35 | disposition home or self-care (01) ==
LOC: KA.MS 15:07
PROVIDERS: ADMIT Nurse Practitioner Family; ATTEND Family Medicine
DX: K52.9 Noninfective gastroenteritis and colitis, unspecified (principal); J44.1 Chronic obstructive pulmonary disease with (acute) exacerbation; D53.9 Nutritional anemia, unspecified; E87.6 Hypokalemia; E83.51 Hypocalcemia; R31.0 Gross hematuria; F17.210 Nicotine dependence, cigarettes, uncomplicated; Z79.1 Long term (current) use of non-steroidal anti-inflammatories (NSAID); Z79.82 Long term (current) use of aspirin; Z79.891 Long term (current) use of opiate analgesic; Z79.51 Long term (current) use of inhaled steroids; Z79.52 Long term (current) use of systemic steroids; Z79.899 Other long term (current) drug therapy; Z88.1 Allergy status to other antibiotic agents; Z88.5 Allergy status to narcotic agent
CPT/HCPCS: 36415; 80048; 80198; 81001; 82272; 82607; 82746; 85025; 87070; 87086; 87186; 87205; 94640; 96361; 96374; A9270-GY; G0378; G0379; J2405; J7030; J7620-GY

== ENCOUNTER 2018-11-30 02:39 | Emergency (ER) | payer OTHER, MEDICARE, MEDICAID ==
[2018-11-30] MEDS ORDERED: VITAMIN K IV ONE ×5 (02:40)
[2018-11-30] MEDS ORDERED: MAGNESIUM SULFATE IV ONE ×5 (02:40)
[2018-11-30] MEDS ORDERED: [UNRECOGNIZED DRUG - OTHER] IV ONE ×5 (02:40)
[2018-11-30] MEDS ORDERED: MVI IV ONE ×5 (02:40)
[2018-11-30] MEDS ORDERED: THIAMINE IV ONE ×5 (02:40)
[2018-11-30] MEDS ORDERED: Magnesium Sulfate (4.06 MEQ/ML) 1 GM/2 ML SDV IV ONE (03:00)
[2018-11-30] MEDS ORDERED: Sodium Chloride 0.9% 10 ML Syringe FLUSH PRN (03:00)
[2018-11-30] MEDS ORDERED: Thiamine 100 MG in Sodium Chloride 0.9% 100 ML IV ONE (03:00)
[2018-11-30] MEDS ORDERED: MVI, Adult with Vitamin K 10 ML in Sodium Chloride 0.9% 1,000 ML IV ONE ×2 (03:00)
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
[2018-11-30] MEDS ORDERED: MVI IV SCH ×5 (03:15)
[2018-11-30] MEDS ORDERED: Dextrose 5%-0.45% NaCl 1,000 ML IV SCH (03:15)
[2018-11-30] MEDS ORDERED: [UNRECOGNIZED DRUG - OTHER] IV SCH ×5 (03:15)
[2018-11-30] MEDS ORDERED: VITAMIN K IV SCH ×5 (03:15)
[2018-11-30] MEDS ORDERED: MAGNESIUM SULFATE IV SCH ×5 (03:15)
[2018-11-30] MEDS ORDERED: THIAMINE IV SCH ×5 (03:15)
[2018-11-30] MEDS ORDERED: Folic Acid 50 MG/10 ML MDV IV SCH (03:15)
[2018-11-30] MEDS ORDERED: Albuterol/Ipratropium 3.0-0.5 MG/3 ML Neb Soln NEB ONE (03:17)
[2018-11-30 03:22] LABS: ANION GAP 10.5 mmol/L (5-15); CHLORIDE,CL 98 mmol/L (98-115); SODIUM,NA 138 mmol/L (136-145)
[2018-11-30] MEDS ORDERED: Ketorolac 30 MG/ML SDV IVPUSH ONE (03:44)
[2018-11-30] MEDS ORDERED: methylPREDNISolone Sodium Succinate 125 MG/2 ML SDV IVPUSH ONE (03:45)
--- NOTE | 2018-11-30 07:26 | CT ---
[id number] CT/CT Head WO IV EXAM: NONCONTRAST HEAD CT INDICATION: Head injury. COMPARISON: December 15, 2011. DISCUSSION: Mild generalized atrophy is similar to the prior study. Mild progression of moderate chronic small vessel ischemic changes. No mass effect or midline shift. No acute hemorrhage or extra-axial fluid collection. No acute territorial infarct is identified. Mucosal thickening and small volume fluid right maxillary sinus. Chronic appearing nasal bone fractures. IMPRESSION: 1. No evidence of acute intracranial trauma. Timmy Steen MD 11/30/18 0725 Thank you for allowing us to participate in the care of your patient.
--- NOTE | 2018-11-30 07:56 | CT ---
[id number] CT/CT Cervical Spine WO IV EXAM: NONCONTRAST CERVICAL SPINE CT INDICATION: Head injury. COMPARISON: MRI March 29, 2012. DISCUSSION: 3 mm spondylolisthesis C6-C7 likely relating to facet arthropathy. The vertebral bodies are otherwise normal in height and alignment. No fracture or suspicious osseous lesion is identified. Moderate to advanced degenerative disc disease C4-C5 and C5-C6 with milder changes at the remaining disc levels. Moderate to advanced facet arthropathy throughout the cervical spine. Small volume fluid in the right maxillary sinus. Bilateral carotid calcifications. Emphysematous changes in the lung apices. IMPRESSION: 1. No evidence of acute cervical spine trauma. 2. Multilevel cervical spondylosis. Timmy Steen MD 11/30/18 0755 Thank you for allowing us to participate in the care of your patient.
[2018-11-30 08:38] VITALS: BP 135/87; PULSE 91
--- NOTE | 2018-11-30 08:58 | CR ---
[id number] RAD/RAD Chest PA or AP 1V EXAM: FRONTAL CHEST INDICATION: Rib pain. COMPARISON: October 15, 2017. DISCUSSION: Hyperinflation is consistent with chronic obstructive pulmonary disease. The heart is borderline enlarged without evidence of edema. Chronic appearing left tenth rib fractures similar to the prior study. IMPRESSION: 1. No acute findings. Timmy Steen MD 11/30/18 0857 Thank you for allowing us to participate in the care of your patient.
== END 2018-11-30 08:50 | disposition home or self-care (01) ==
LOC: KA.ED 02:39
DX: S00.01XA Abrasion of scalp, initial encounter (principal); F10.220 Alcohol dependence with intoxication, uncomplicated; Y90.8 Blood alcohol level of 240 mg/100 ml or more; M47.812 Spondylosis without myelopathy or radiculopathy, cervical region; I25.2 Old myocardial infarction; J44.9 Chronic obstructive pulmonary disease, unspecified; Z86.73 Personal history of transient ischemic attack (TIA), and cerebral infarction without residual deficits; Z88.1 Allergy status to other antibiotic agents; Z91.048 Other nonmedicinal substance allergy status; Z79.899 Other long term (current) drug therapy; Z79.82 Long term (current) use of aspirin; W18.39XA Other fall on same level, initial encounter
CPT/HCPCS: 36415; 70450; 71045; 72125; 80053; 85025; 94640; 96365; 96366; 96375; 99284; G0480; J1885; J2930; J3411; J3475; J7042; J3490; J7620-GY

== ENCOUNTER 2019-10-11 19:50 | Emergency (ER) | payer MEDICARE, MEDICAID ==
[2019-10-11 20:00] VITALS: BP 148/86; PULSE 105
[2019-10-11] MEDS ORDERED: Sodium Chloride 0.9% 10 ML Syringe FLUSH PRN (20:14)
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
[2019-10-11] MEDS ORDERED: Ondansetron 4 MG/2 ML SDV IVPUSH ONE (20:46)
[2019-10-11 21:23] LABS: ANION GAP 23.6 mmol/L (5-15); CHLORIDE,CL 92 mmol/L (98-115); SODIUM,NA 136 mmol/L (136-145)
--- NOTE | 2019-10-12 10:12 | CR ---
[id number] RAD/RAD Abd Flat and Upright 2V EXAM: RAD Abd Flat and Upright 2V INDICATION: ABDOMINAL PAIN COMPARISON: July 26, 2008. DISCUSSION: Normal bowel gas pattern without bowel dilation, free air or pneumatosis identified. No pathologic calcifications or osseous abnormality is seen. Small chronic metallic density overlying the right lower quadrant previously demonstrated within the subcutaneous tissues of the anterior abdominal wall on a October 15, 2017 CT. Arterial calcifications. IMPRESSION: 1. Normal bowel gas pattern. Timmy Steen MD 10/12/19 1011 Thank you for allowing us to participate in the care of your patient.
--- NOTE | 2019-10-12 10:39 | CR ---
[id number] RAD/RAD Chest PA And Lateral EXAM: FRONTAL AND LATERAL CHEST INDICATION: ABDOMINAL PAIN COMPARISON: November 30, 2018. DISCUSSION: Hyperinflation is compatible with chronic obstructive pulmonary disease. No acute infiltrates are identified. Heart is somewhat small in size. Small bilateral pleural effusions. Chronic healed left rib fractures. IMPRESSION: 1. Chronic small bilateral pleural effusions. 2. Chronic obstructive pulmonary disease. Timmy Steen MD 10/12/19 1038 Thank you for allowing us to participate in the care of your patient.
== END 2019-10-11 22:35 | disposition left against medical advice (07) ==
LOC: KA.ED 19:50
DX: R07.9 Chest pain, unspecified (principal); J44.9 Chronic obstructive pulmonary disease, unspecified; I25.2 Old myocardial infarction; M19.90 Unspecified osteoarthritis, unspecified site; F17.210 Nicotine dependence, cigarettes, uncomplicated; F41.9 Anxiety disorder, unspecified; F32.9 Major depressive disorder, single episode, unspecified; Z88.1 Allergy status to other antibiotic agents; Z91.048 Other nonmedicinal substance allergy status; Z79.899 Other long term (current) drug therapy; Z79.82 Long term (current) use of aspirin; Z95.5 Presence of coronary angioplasty implant and graft; R07.89 Other chest pain
CPT/HCPCS: 71046; 74021; 80053; 81001; 82550; 83605; 83880; 84484; 85025; 87040; 93005; 96374; 99284; 99285-25; J2405

== ENCOUNTER 2019-12-28 18:17 | Inpatient (IN) | payer MEDICARE, MEDICAID, OTHER ==
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
[2019-12-28 19:21] LABS: ANION GAP 15.7 mmol/L (5-15); CHLORIDE,CL 102 mmol/L (98-115); SODIUM,NA 142 mmol/L (136-145)
--- NOTE | 2019-12-28 19:40 | CR ---
[id number] RAD/RAD Chest PA or AP 1V EXAM: SINGLE VIEW CHEST. INDICATION: SHORTNESS OF BREATH COMPARISON: RELATION IS MADE WITH OCTOBER 11, 2019 FINDINGS: The lungs are clear but hyperaerated The cardiomediastinal contour is stable IMPRESSION: COPD Jimbo Ardon MD 12/28/19 [id number] Thank you for allowing us to participate in the care of your patient.
[2019-12-28] MEDS ORDERED: methylPREDNISolone Sodium Succinate 125 MG/2 ML SDV IVPUSH ONE (21:01)
[2019-12-28] MEDS ORDERED: methylPREDNISolone Sodium Succinate 125 MG/2 ML SDV ONE (21:03)
[2019-12-28] MEDS ORDERED: Albuterol/Ipratropium 3.0-0.5 MG/3 ML Neb Soln NEB PRN (22:38)
[2019-12-28] MEDS ORDERED: Albuterol 8 GM Inhaler INH PRN (22:56)
[2019-12-28] MEDS ORDERED: Nitroglycerin 0.4 MG Tab.SL SL PRN (23:05)
[2019-12-29] MEDS ORDERED: Ondansetron 4 MG/2 ML SDV IVPUSH PRN (02:28)
[2019-12-29] MEDS: traZODone 50 MG Tab PO PRN ×2 (02:30→21:26)
[2019-12-29] MEDS ORDERED: guaiFENesin/Dextromethorphan 100-10 MG/5 ML Soln 5 ML Cup PO PRN (02:31)
[2019-12-29] MEDS: Formoterol/Mometasone 100-5 MCG 8.8 GM Inhaler IH SCH ×3 (08:36→21:29)
[2019-12-29] MEDS: Potassium Chloride 10 MEQ Tab.ER PO SCH (08:37)
[2019-12-29] MEDS: Aspirin 81 MG Tab.EC PO SCH (08:37)
[2019-12-29] MEDS: Folic Acid 1 MG Tab PO SCH (08:37)
[2019-12-29] MEDS: Glycopyrrolate 15.6 MCG Cap.W.Dev Kit of 6 IH SCH (08:38)
[2019-12-29] MEDS: Fluticasone Propionate Nasal Spray 16 GM Bottle NASBOTH SCH ×2 (08:40→21:28)
[2019-12-29 11:20] LABS: SODIUM,NA 135 mmol/L (136-145)
[2019-12-29 11:21] LABS: ANION GAP 16.7 mmol/L (5-15); CHLORIDE,CL 97 mmol/L (98-115)
[2019-12-29] MEDS: Pantoprazole 40 MG Vial IVPUSH SCH (11:41)
[2019-12-29] MEDS: predniSONE 20 MG Tab PO SCH (11:41)
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
[2019-12-29] MEDS: Acetaminophen 500 MG Tab PO SCH ×2 (13:10→21:25)
[2019-12-29] MEDS: Magnesium Oxide 500 MG Tab PO SCH (13:10)
[2019-12-29] MEDS: Sertraline 50 MG Tab PO SCH (21:24)
[2019-12-29] MEDS: atorvaSTATin 40 MG Tab PO SCH (21:25)
[2019-12-29] MEDS: Melatonin 3 MG Tab PO SCH (21:25)
[2019-12-29] MEDS: Montelukast 10 MG Tab PO SCH (21:25)
[2019-12-30] MEDS: Aspirin 81 MG Tab.EC PO SCH (08:05)
[2019-12-30] MEDS: Magnesium Oxide 500 MG Tab PO SCH (08:05)
[2019-12-30] MEDS: Potassium Chloride 10 MEQ Tab.ER PO SCH (08:05)
[2019-12-30] MEDS: Folic Acid 1 MG Tab PO SCH (08:06)
[2019-12-30] MEDS: Acetaminophen 500 MG Tab PO SCH ×2 (08:06→21:09)
[2019-12-30] MEDS: predniSONE 20 MG Tab PO SCH (08:06)
[2019-12-30 08:17] LABS: ANION GAP 12.6 mmol/L (5-15); CHLORIDE,CL 99 mmol/L (98-115); SODIUM,NA 136 mmol/L (136-145)
[2019-12-30] MEDS: Pantoprazole 40 MG Vial IVPUSH SCH (09:02)
[2019-12-30] MEDS: Fluticasone Propionate Nasal Spray 16 GM Bottle NASBOTH SCH ×2 (09:05→21:04)
[2019-12-30] MEDS: Formoterol/Mometasone 100-5 MCG 8.8 GM Inhaler IH SCH ×2 (09:34→21:04)
[2019-12-30] MEDS: Glycopyrrolate 15.6 MCG Cap.W.Dev Kit of 6 IH SCH (09:34)
--- NOTE | 2019-12-30 10:43 | PCM.PN ---
- General Info Date of Service: 12/30/19 Functional Status: Reports: Pain Controlled, Tolerating Diet, Urinating - Review of Systems General: Reports: Malaise HEENT: Reports: No Symptoms Pulmonary: Reports: Shortness of Breath (impro), Cough, Sputum Cardiovascular: Reports: Dyspnea on Exertion Gastrointestinal: Reports: Other (epigastic pain sporadic). Denies: Decreased Appetite, Difficulty Swallowing, Melena Genitourinary: Reports: No Symptoms Musculoskeletal: Reports: Back Pain Skin: Reports: Dryness Neurological: Denies: Confusion Psychiatric: Denies: Confusion, Agitation - Patient Data Vitals - Most Recent: Last Vital Signs Temp 97.1 F 12/30/19 06:21 Pulse 79 12/30/19 06:21 Resp 16 12/30/19 06:21 BP 127/64 12/30/19 06:21 Pulse Ox 94 L 12/30/19 07:45 Weight - Most Recent: 106 lb 11.2 oz I&O - Last 24 Hours: Intake & Output 12/29/19 12/30/19 12/30/19 22:59 06:59 14:59 Intake Total 1040 0 Balance 1040 0 Lab Results Last 24 Hours: Laboratory Results - last 24 hr 12/29/19 12/29/19 12/30/19 Range/Units 07:23 07:23 07:05 WBC 11.70 H (5.00-10.00) 10^3/uL RBC 3.86 L (4.50-6.00) 10^6/uL Hgb 13.8 (13.0-17.0) g/dL Hct 38.8 L (40.0-52.0) % MCV 100.5 H (82.0-92.0) fL MCH 35.8 H (27.0-31.0) pg MCHC 35.6 (32.0-36.0) g/dL RDW 12.7 (11.5-14.5) % Plt Count 112 L (150-400) 10^3/uL MPV 10.2 (7.4-10.4) fL Immature Gran % (Auto) 0.6 (0.0-5.0) % Neut % (Auto) 83.2 H (50.0-70.0) % Lymph % (Auto) 8.0 L (20.0-40.0) % [place] % (Auto) 7.9 (2.0-8.0) % Eos % (Auto) 0.2 L (1.0-3.0) % Baso % (Auto) 0.1 (0.0-1.0) % Neut # (Auto) 9.73 H (2.50-7.00) 10^3/uL Lymph # (Auto) 0.94 L (1.00-4.00) 10^3/uL [place] # (Auto) 0.93 H (0.10-0.80) 10^3/uL Eos # (Auto) 0.02 L (0.10-0.30) 10^3/uL Baso # (Auto) 0.01 (0.00-0.10) 10^3/uL Immature Gran # (Auto) 0.07 (0.00-0.50) 10^3/uL Sodium 135 L (136-145) mmol/L Potassium 3.6 (3.3-5.3) mmol/L Chloride 97 L (98-115) mmol/L Carbon Dioxide (21.0-32.0) mmol/L Anion Gap 16.7 H (5-15) mmol/L BUN (6-25) mg/dL Creatinine (0.51-1.17) mg/dL Est Cr Clr Drug Dosing mL/min Estimated GFR (MDRD) mL/min Glucose (75 - 99) mg/dL Calcium (8.7-10.3) mg/dL Magnesium 1.5 L (1.8-2.4) mg/dL Total Bilirubin (0.2-1.0) mg/dL AST (15-37) U/L ALT (12-78) U/L Alkaline Phosphatase (46-116) IU/L Total Protein (6.4-8.2) g/dL Albumin (3.00-4.80) g/dL 12/30/19 Range/Units 07:05 WBC (5.00-10.00) 10^3/uL RBC (4.50-6.00) 10^6/uL Hgb (13.0-17.0) g/dL Hct (40.0-52.0) % MCV (82.0-92.0) fL MCH (27.0-31.0) pg MCHC (32.0-36.0) g/dL RDW (11.5-14.5) % Plt Count (150-400) 10^3/uL MPV (7.4-10.4) fL Immature Gran % (Auto) (0.0-5.0) % Neut % (Auto) (50.0-70.0) % Lymph % (Auto) (20.0-40.0) % [place] % (Auto) (2.0-8.0) % Eos % (Auto) (1.0-3.0) % Baso % (Auto) (0.0-1.0) % Neut # (Auto) (2.50-7.00) 10^3/uL Lymph # (Auto) (1.00-4.00) 10^3/uL [place] # (Auto) (0.10-0.80) 10^3/uL Eos # (Auto) (0.10-0.30) 10^3/uL Baso # (Auto) (0.00-0.10) 10^3/uL Immature Gran # (Auto) (0.00-0.50) 10^3/uL Sodium 136 (136-145) mmol/L Potassium 3.6 (3.3-5.3) mmol/L Chloride 99 (98-115) mmol/L Carbon Dioxide 28.0 (21.0-32.0) mmol/L Anion Gap 12.6 (5-15) mmol/L BUN 14 (6-25) mg/dL Creatinine 0.51 (0.51-1.17) mg/dL Est Cr Clr Drug Dosing 89.63 mL/min Estimated GFR (MDRD) > 60 mL/min Glucose 124 H (75 - 99) mg/dL Calcium 8.7 (8.7-10.3) mg/dL Magnesium (1.8-2.4) mg/dL Total Bilirubin 1.0 (0.2-1.0) mg/dL AST 19 (15-37) U/L ALT 22 (12-78) U/L Alkaline Phosphatase 86 (46-116) IU/L Total Protein 6.0 L (6.4-8.2) g/dL Albumin 3.23 (3.00-4.80) g/dL [place] Results Last 24 Hours: Microbiology 12/28/19 18:45 Aerobic Blood Culture - Preliminary Blood - Venous - Lab Draw NO GROWTH AFTER 1 DAY Anaerobic Blood Culture - Preliminary NO GROWTH AFTER 1 DAY 12/28/19 18:35 Aerobic Blood Culture - Preliminary Blood - Venous NO GROWTH AFTER 1 DAY Anaerobic Blood Culture - Preliminary NO GROWTH AFTER 1 DAY Med Orders - Current: Current Medications Acetaminophen (Tylenol Extra Strength) 500 mg PO BEDTIME [facility] Last Admin: 12/29/19 21:25 Dose: 500 mg Documented by: Acetaminophen (Tylenol Extra Strength) 1,000 mg PO DAILY [facility] Last Admin: 12/30/19 08:06 Dose: 1,000 mg Documented by: Albuterol (Ventolin Hfa) 1 - 2 gm INH ASDIRECTED PRN PRN Reason: short of breath Last Admin: 12/29/19 02:13 Dose: 2 puff Documented by: Albuterol/Ipratropium (Duoneb 3.0-0.5 Mg/3 Ml) 3 ml NEB Q4H PRN PRN Reason: Shortness Of Breath/wheezing Last Admin: 12/28/19 23:11 Dose: 3 ml Documented by: Aspirin (Halfprin) 81 mg PO DAILY [facility] Last Admin: 12/30/19 08:05 Dose: 81 mg Documented by: Atorvastatin Calcium (Lipitor) 40 mg PO BEDTIME [facility] Last Admin: 12/29/19 21:25 Dose: 40 mg Documented by: Fluticasone Propionate (Flonase) 0 gm NASBOTH BID [facility] Last Admin: 12/30/19 09:05 Dose: 1 spray Documented by: Folic Acid (Folic Acid) 1 mg PO DAILY [facility] Last Admin: 12/30/19 08:06 Dose: 1 mg Documented by: Glycopyrrolate (Seebri Neohaler) 15.6 mcg IH DAILY [facility] Last Admin: 12/30/19 09:34 Dose: 1 cap Documented by: Guaifenesin/Phenylephrine HCl (Robitussin Dm) 10 ml PO Q4H PRN PRN Reason: Cough Last Admin: 12/29/19 21:32 Dose: 10 ml Documented by: Magnesium Oxide (Magnesium Oxide) 250 mg PO DAILY [facility] Last Admin: 12/30/19 08:05 Dose: 250 mg Documented by: Melatonin (Melatonin) 3 mg PO BEDTIME [facility] Last Admin: 12/29/19 21:25 Dose: 3 mg Documented by: Mometasone Furoate/Formoterol Fumar (Dulera 100-5 Mcg) 2 puff IH BID [facility] Last Admin: 12/30/19 09:34 Dose: 2 puff Documented by: Montelukast Sodium (Singulair) 10 mg PO BEDTIME [facility] Last Admin: 12/29/19 21:25 Dose: 10 mg Documented by: Nitroglycerin (Nitrostat) 0.4 mg SL ASDIRECTED PRN PRN Reason: Chest Pain Last Admin: 12/29/19 02:06 Dose: 0.4 mg Documented by: Pantoprazole Sodium (Protonix Iv) 40 mg IVPUSH DAILY [facility] Last Admin: 12/30/19 09:02 Dose: 40 mg Documented by: Potassium Chloride (Klor-Con 10) 10 meq PO DAILY [facility] Last Admin: 12/30/19 08:05 Dose: 10 meq Documented by: Prednisone (Prednisone) 40 mg PO WITHBREAKFAST [facility] Stop: 01/02/20 10:00 Last Admin: 12/30/19 08:06 Dose: 40 mg Documented by: Sertraline HCl (Zoloft) 100 mg PO BEDTIME [facility] Last Admin: 12/29/19 21:24 Dose: 100 mg Documented by: Trazodone HCl (Trazodone) 50 mg PO BEDTIME PRN PRN Reason: Sleep Last Admin: 12/29/19 21:26 Dose: 50 mg Documented by: Discontinued Medications Methylprednisolone Sodium Succinate (Solu-Medrol) 125 mg IVPUSH ONETIME ONE Stop: 12/28/19 21:02 Last Admin: 12/28/19 21:04 Dose: 125 mg Documented by: Methylprednisolone Sodium Succinate (Solu-Medrol) Confirm Administered Dose 125 mg .ROUTE .STK-MED ONE Stop: 12/28/19 21:04 Last Admin: 12/28/19 21:07 Dose: Not Given Documented by: Ondansetron HCl (Zofran) 4 mg IVPUSH Q4H PRN PRN Reason: Nausea/Vomiting - Exam Quality Assessment: No: Supplemental Oxygen General: Alert, Oriented, Cooperative, No Acute Distress Neck: No JVD Lungs: Decreased Breath Sounds, Wheezing. No: Crackles Cardiovascular: Regular Rate, Regular Rhythm, No Murmurs GI/Abdominal Exam: Soft, No Organomegaly. No: Distended (Male) Exam: Deferred Extremities: No Pedal Edema. No: Non-Tender Peripheral Pulses: 3+: Radial (L), Radial (R) Skin: Dry Neurological: Normal Speech, Normal Tone, Sensation Intact Psy/Mental Status: Alert, Normal Affect, Normal Mood Sepsis Event Note - Evaluation Sepsis Screening Result: No Definite Risk - Focused Exam Vital Signs: Vital Signs Temp Pulse Resp BP Pulse Ox Pulse Ox 12/30/19 07:45 94 L 12/30/19 06:21 97.1 F 79 16 127/64 94 L - Problem List Review Problem List Initiated/Reviewed/Updated: Yes - Plan Plan:: HPI summary: 74 year old male presented to the ED on evening of 12/28/2019 via EMS after experiencing shortness of breath and chest pain while working on his scooter outside. He has been having increased shortness of breath and pain with inspiration for approximately two weeks. He reports taking his medications and inhalers at home as directed. He reports difficulty with his bowels for the past few weeks with frequent diarrhea and notes blood in his stool. Pain in his abdomen on the right upper quadrant and epigastric that is worse with a deep breath. Smokes 2.5 packs of cigarettes a day and reports drinking six beers a day. Work up in ED reveals COPD exacerbation, patient admitted observation to med surg floor. ED course: -VS: T36.6C, HR 95, BP 103/81, RR 18, O2 sat 100% on 8L/NRB mask per EMS -Rectal exam: mild external hemorrhoid without bleeding, roughly 35g prostate with mild tenderness, Hemoccult negative -1V CXR: COPD; no infiltrate or cardiomegaly -CTA chest: emphysema, no pneumonia, no PE, no thoracic aortic aneurysm or d issection -EKG: NSR, LBBB, prolonged QT, change from previous -Lab: CBC at baseline without leukocytosis or neutrophilia, plt 124, D-Dimer 948, electolytes stable, unremarkable kidney function, Ca 7.9, Tprotein 6.2, LFT unremarkable, lactic 2.4 with anion gap 15.7, COVID negative; blood cultures pending -Solu-Medrol 125mg IV given, O2 lowered to 2L/NC with sat maintaining greater than 90% -Admit observation COPD exacerbation Hospital course: 12/29/2019: Overnight patient did have episode of increased work of breathing and chest pain. He was given one nitro with relief of pain. Refused neb, but used albuterol inhaler with relief. Zofran and Robitussin ordered PRN. This AM patient respiratory status is improved. Continues to have oxygen requirement, Sat 95% on 3.5L/NC. Afebrile. P 96, BP 137/87, RR 22. Denies chest pain. Does report abdominal pain in RUQ/epigastric area and diarrhea. Lab remains stable. Reports difficulty with self care at home and reports does not feel he is ready to go home. Will change to inpatient as patient does continue to have oxygen requirement and abdominal pain. Suspect abdominal pain gastritis r/t alcohol use. Does not take PPI at home. Discussed social service consult, patient agreeable. He reports tolerating diet and voiding without difficulty. Update today, Hospitalization problems and plan: # Acute hypoxic respiratory failure # COPD exacerbation - Prednisone 40mg daily for five days starting 12/29/2019 - Albuterol MDI 1-2 puffs ONLY PRN dyspnea, notify Glen if patient is requesting - Albuterol/ipratropium neb every four hours PRN dyspnea or wheezing - Robitussin PRN cough - Dulera two puffs twice daily and glucopyrrolate - Singulair 10mg orally daily - Flonase twice daily # Gastritis, r/t chronic alcohol use - Protonix 40mg IV daily - holding ondansetron due to QT prolongation, corrected QT 09/2019 492 # Chronic alcohol use - Monitor - Folic acid 1mg daily # Self care deficit - No social security benefits interviewer needed as patient not homebound, ambulatory sats adequate # Tobacco dependence - Allergic to nicotine patch, improper use of nicotine gum, patient reeducated--pharmacy consultation # Insomnia: - Continue trazodone 50 mg at HS - Melatonin 3mg at HS Chronic, stable conditions: #Hypokalemia, stable continue potassium 10mEq daily #Protein malnutrition.hold multivitamin and calcium/vitamin D for now. #Macrocytic anemia #Chronic neck pain: hold naproxen, continue tylenol #Nodular lymphoma of multiple sites. #Depression: Continue zoloft #Hypomagnesemia: Continue magnesium, will check magnesium level #Hyperlipidemia: Continue lipitor #Stable angina: Continue nitroglycerin PRN, baby aspirin daily. Hospitalization details: # FEN: oral intake, electrolytes stable, heart healthy diet # PPX: on ASA daily # Code status: DNR/DNI, with treatment of reversible conditions, agreeable to artificial nutrition, POLST form reviewed with patient # Emergency contact: sister Hamida, will be updated by nursing Disposition/overall plan --Continue with inpatient stay today nicotine gum inappropriately used by patient, patient reeducated on proper use, nursing/RT continue to reinforce how long to chew, pocketing it in gum then re-chew and avoiding fluids while in use--likely contributing to his gastritis, along with nicotine washout. --Pharmacy consultation as his medication refill discrepancies --Motivational interviewing regarding smoking cessation, will support --Anticipate discharge tomorrow, as he homebound, does not appear to be oxygen dependent, needs ongoing smoking cessation education
--- NOTE | 2019-12-30 17:22 | CT ---
[id number] CT/CTA Chest EXAM: CTA Chest CLINICAL DATA: ELEVATED D DIMER. COMPARISON: Radiograph from same date. Chest CT from 2014. FINDINGS: LUNGS: Apical predominant parenchymal emphysema throughout both lungs. Biapical scarring. Mild granulomatous change throughout both lungs. No suspicious nodules or masses. No pneumonia, effusion, edema, or pneumothorax. HEART AND GREAT VESSELS: Negative for pulmonary embolus. No pericardial effusion. Thoracic aorta atherosclerosis. No aneurysm. MEDIASTINUM AND LYMPHATICS: No mediastinal or hilar lymphadenopathy. UPPER ABDOMINAL ORGANS: Unremarkable. BONES: Scattered changes of spondylosis in the spine. No fracture or osseous lesion. IMPRESSION: Negative for pulmonary embolus or other acute findings in the chest. Chronic findings are described above. Riki Sevilla MD 12/30/19 [id number] Thank you for allowing us to participate in the care of your patient.
[2019-12-30] MEDS: atorvaSTATin 40 MG Tab PO SCH (21:09)
[2019-12-30] MEDS: Sertraline 50 MG Tab PO SCH (21:10)
[2019-12-30] MEDS: Melatonin 3 MG Tab PO SCH (21:10)
[2019-12-30] MEDS: Montelukast 10 MG Tab PO SCH (21:10)
[2019-12-31 06:25] VITALS: BP 123/76
[2019-12-31] MEDS: Fluticasone Propionate Nasal Spray 16 GM Bottle NASBOTH SCH (08:12)
[2019-12-31] MEDS: Aspirin 81 MG Tab.EC PO SCH (08:13)
[2019-12-31] MEDS: Pantoprazole 40 MG Vial IVPUSH SCH (08:13)
[2019-12-31] MEDS: Folic Acid 1 MG Tab PO SCH (08:13)
[2019-12-31] MEDS: Potassium Chloride 10 MEQ Tab.ER PO SCH (08:13)
[2019-12-31] MEDS: Magnesium Oxide 500 MG Tab PO SCH (08:14)
[2019-12-31] MEDS: predniSONE 20 MG Tab PO SCH (08:14)
[2019-12-31] MEDS: Acetaminophen 500 MG Tab PO SCH (08:14)
[2019-12-31] MEDS: Glycopyrrolate 15.6 MCG Cap.W.Dev Kit of 6 IH SCH (08:46)
[2019-12-31] MEDS: Formoterol/Mometasone 100-5 MCG 8.8 GM Inhaler IH SCH (08:47)
[2019-12-31 09:07] VITALS: PULSE 76
--- NOTE | 2020-01-01 09:06 | PCM.DCSUM1 ---
Discharge Summary - Hospital Course Diagnosis: Stroke: No - Discharge Data Discharge Date: 12/31/19 Discharge Disposition: Home, Self-Care 01 Condition: Fair - Referral to Home Health Primary Care Physician: Glen Velasquez NP - Patient Summary/Data Consults: Consultations 12/29/19 10:56 Consult to Case Management/Electron Beam Welding Machine Operator [CONS] Routine 12/29/19 12:58 Respiratory Care Assess and Treatment [CONS] Routine - Patient Instructions Diet: Usual Diet as Tolerated Activity: As Tolerated Showering/Bathing: May Shower Notify Provider of: Fever, Nausea and/or Vomiting (report any shortness of breath and fever. ) Other/Special Instructions: Decrease smoking. Chew nicotine gum as directed. Take your breathing medication (Trelegy Ellipta daily). Take ALL your meds as directed. Bring ALL of your meds to all appointments in the future - Discharge Plan *PRESCRIPTION DRUG MONITORING PROGRAM REVIEWED*: Not Applicable *COPY OF PRESCRIPTION DRUG MONITORING REPORT IN PATIENT ADIA: Not Applicable Home Medications: Home Meds Nitroglycerin [Nitrostat] 0.4 mg SL ASDIRECTED PRN 01/23/15 [History] traZODone 50 mg PO BEDTIME PRN 01/23/15 [History] atorvaSTATin [Lipitor] 40 mg PO BEDTIME 01/20/17 [History] Sertraline HCl [Zoloft] 100 mg PO BEDTIME 10/15/17 [History] Carboxymethylcellulos/Glycerin [Lubricant 0.5-0.9% Eye Drops] 2 drop EYEBOTH DAILY #15 ml 10/18/17 [Rx] Albuterol/Ipratropium [DuoNeb 3.0-0.5 MG/3 ML] 3 ml NEB QID 08/29/18 [History] Aspirin 81 mg PO DAILY 08/29/18 [History] Fluticasone Propionate [Flonase] 1 spray NASBOTH BID 08/29/18 [History] Magnesium Oxide 250 mg PO DAILY 08/29/18 [History] Montelukast [Singulair] 10 mg PO DAILY 08/29/18 [History] Naproxen 250 mg PO DAILY 08/29/18 [History] Sodium Chloride/Aloe Vera [[place] Saline Nasal Gel [place]] 1 spray NASBOTH DAILY 08/29/18 [History] Fluticasone/Umeclidin/Vilanter [Trelegy Ellipta 100-62.5-25] 1 puff INH DAILY 10/11/19 [History] Folic Acid 1,000 mcg PO DAILY 10/11/19 [History] Potassium Chloride [Klor-Con 10] 10 meq PO DAILY 10/11/19 [History] Acetaminophen 500 mg PO BEDTIME 12/28/19 [History] Acetaminophen [Pain Relief Extra Strength] 1,000 mg PO DAILY 12/28/19 [History] Albuterol [Ventolin HFA] 1 - 2 puff INH ASDIRECTED PRN 12/28/19 [History] Calcium Carbonate/Vitamin D3 [Calcium 600-Vit D3 400 Tablet] 1 each PO BID 0 12/28/19 [History] Docusate Sodium [Colace] 1 cap PO DAILY PRN 12/28/19 [History] Multivit-Min/FA/Lycopen/Lutein [[place] Senior Tablet] 1 tab PO DAILY 12/28/19 [History] Ondansetron [Zofran] 4 mg PO Q6H PRN 12/28/19 [History] Referrals: Glen Velasquez, DATABASE SOFTWARE TECHNICIAN [Primary Care Provider] - 01/03/20 2:00 pm (Monday) - Discharge Summary/Plan Comment DC Time >30 min.: Yes Discharge Summary/Plan Comment: Final diagnosis COPD exacerbation Gastritis, r/t chronic alcohol/tobacco Medication mismanagement HPI summary: 74 year old male presented to the ED on evening of 12/28/2019 via EMS after experiencing shortness of breath and chest pain while working on his scooter outside. He has been having increased shortness of breath and pain with inspiration for approximately two weeks. He reports taking his medications and inhalers at home as directed. He reports difficulty with his bowels for the past few weeks with frequent diarrhea and notes blood in his stool. Pain in his abdomen on the right upper quadrant and epigastric that is worse with a deep breath. Smokes 2.5 packs of cigarettes a day and reports drinking six beers a day. Work up in ED reveals COPD exacerbation, patient admitted observation to med surg floor. ED/hospital course: -VS: T36.6C, HR 95, BP 103/81, RR 18, O2 sat 100% on 8L/NRB mask per EMS -Rectal exam: mild external hemorrhoid without bleeding, roughly 35g prostate with mild tenderness, Hemoccult negative -1V CXR: COPD; no infiltrate or cardiomegaly -CTA chest: emphysema, no pneumonia, no PE, no thoracic aortic aneurysm or dissection -EKG: NSR, LBBB, prolonged QT, change from previous -Lab: CBC at baseline without leukocytosis or neutrophilia, plt 124, D-Dimer 948, electolytes stable, unremarkable kidney function, Ca 7.9, Tprotein 6.2, LFT unremarkable, lactic 2.4 with anion gap 15.7, COVID negative; blood cultures pending -Solu-Medrol 125mg IV given, O2 lowered to 2L/NC with Hospital course: 12/29/2019: Overnight patient did have episode of increased work of breathing and chest pain. He was given one nitro with relief of pain. Refused neb, but used albuterol inhaler with relief. Zofran and Robitussin ordered PRN. This AM patient respiratory status is improved. Continues to have oxygen requirement, Sat 95% on 3.5L/NC. Afebrile. P 96, BP 137/87, RR 22. Denies chest pain. Does report abdominal pain in RUQ/epigastric area and diarrhea. Lab remains stable. Reported difficulty with self care at home and reports does not feel he is ready to go home. Will change to inpatient as patient does continue to have oxygen requirement and abdominal pain. It was determined that he was having gastritis likely due to chronic EtOH use, smoking and appropriate use of his nicotine gum. Although he does not use PPI at home he was placed on Protonix here at the hospital. His ondansetron was held due to QT prolongation, corrected QT 09/2019 492. Due to medication mismanagement, Self care deficit, social service consultation was placed however since he is homebound and continues to drive it was determined that he did not qualify for home health services. Pharmacy consultation as his medication refill discrepancies was determined that the patient had not picked up his Trelegy since July--along with many of his other medications including Singulair. Patient was weaned off oxygen and he did not qualify for home oxygen as his saturations sitting and ambulatory were satisfactory. Reviewed blood gas from previous admissions patient had normal CO2 levels. Medication changes/adjustments upon discharge Prednisone 40 mg daily x3 days Refilled Trelegy Disposition patient was discharged from the hospital. He will follow-up closely in the clinic he was instructed to bring his medications at each appointment. Given instructions to report for shortness of breath worsening. Smoking cessation education was provided. Patient contemplation phase of change as he stated he would like to reduce to half a pack a day - Patient Data Vitals - Most Recent: Last Vital Signs Temp 98.0 F 12/31/19 06:24 Pulse 76 12/31/19 08:47 Resp 20 12/31/19 06:24 BP 123/76 12/31/19 06:24 Pulse Ox 96 12/31/19 08:47 Weight - Most Recent: 106 lb 11.2 oz JENNIFER Results - Last 24 hrs: Microbiology 12/28/19 18:45 Aerobic Blood Culture - Preliminary Blood - Venous - Lab Draw NO GROWTH AFTER 3 DAYS Anaerobic Blood Culture - Preliminary NO GROWTH AFTER 3 DAYS 12/28/19 18:35 Aerobic Blood Culture - Preliminary Blood - Venous NO GROWTH AFTER 3 DAYS Anaerobic Blood Culture - Preliminary NO GROWTH AFTER 3 DAYS Med Orders - Current: Current Medications Discontinued Medications Acetaminophen (Tylenol Extra Strength) 500 mg PO BEDTIME [facility] Last Admin: 12/30/19 21:09 Dose: 500 mg Documented by: Acetaminophen (Tylenol Extra Strength) 1,000 mg PO DAILY [facility] Last Admin: 12/31/19 08:14 Dose: 1,000 mg Documented by: Albuterol (Ventolin Hfa) 1 - 2 gm INH ASDIRECTED PRN PRN Reason: short of breath Last Admin: 12/29/19 02:13 Dose: 2 puff Documented by: Albuterol/Ipratropium (Duoneb 3.0-0.5 Mg/3 Ml) 3 ml NEB Q4H PRN PRN Reason: Shortness Of Breath/wheezing Last Admin: 12/28/19 23:11 Dose: 3 ml Documented by: Aspirin (Halfprin) 81 mg PO DAILY [facility] Last Admin: 12/31/19 08:13 Dose: 81 mg Documented by: Atorvastatin Calcium (Lipitor) 40 mg PO BEDTIME [facility] Last Admin: 12/30/19 21:09 Dose: 40 mg Documented by: Fluticasone Propionate (Flonase) 0 gm NASBOTH BID [facility] Last Admin: 12/31/19 08:12 Dose: 1 spray Documented by: Folic Acid (Folic Acid) 1 mg PO DAILY [facility] Last Admin: 12/31/19 08:13 Dose: 1 mg Documented by: Glycopyrrolate (Seebri Neohaler) 15.6 mcg IH DAILY [facility] Last Admin: 12/31/19 08:46 Dose: 1 cap Documented by: Guaifenesin/Phenylephrine HCl (Robitussin Dm) 10 ml PO Q4H PRN PRN Reason: Cough Last Admin: 12/29/19 21:32 Dose: 10 ml Documented by: Magnesium Oxide (Magnesium Oxide) 250 mg PO DAILY [facility] Last Admin: 12/31/19 08:14 Dose: 250 mg Documented by: Melatonin (Melatonin) 3 mg PO BEDTIME [facility] Last Admin: 12/30/19 21:10 Dose: 3 mg Documented by: Methylprednisolone Sodium Succinate (Solu-Medrol) 125 mg IVPUSH ONETIME ONE Stop: 12/28/19 21:02 Last Admin: 12/28/19 21:04 Dose: 125 mg Documented by: Methylprednisolone Sodium Succinate (Solu-Medrol) Confirm Administered Dose 125 mg .ROUTE .STK-MED ONE Stop: 12/28/19 21:04 Last Admin: 12/28/19 21:07 Dose: Not Given Documented by: Mometasone Furoate/Formoterol Fumar (Dulera 100-5 Mcg) 2 puff IH BID [facility] Last Admin: 12/31/19 08:47 Dose: 2 puff Documented by: Montelukast Sodium (Singulair) 10 mg PO BEDTIME [facility] Last Admin: 12/30/19 21:10 Dose: 10 mg Documented by: Nitroglycerin (Nitrostat) 0.4 mg SL ASDIRECTED PRN PRN Reason: Chest Pain Last Admin: 12/29/19 02:06 Dose: 0.4 mg Documented by: Ondansetron HCl (Zofran) 4 mg IVPUSH Q4H PRN PRN Reason: Nausea/Vomiting Pantoprazole Sodium (Protonix Iv) 40 mg IVPUSH DAILY [facility] Last Admin: 12/31/19 08:13 Dose: 40 mg Documented by: Potassium Chloride (Klor-Con 10) 10 meq PO DAILY [facility] Last Admin: 12/31/19 08:13 Dose: 10 meq Documented by: Prednisone (Prednisone) 40 mg PO WITHBREAKFAST [facility] Stop: 01/02/20 10:00 Last Admin: 12/31/19 08:14 Dose: 40 mg Documented by: Sertraline HCl (Zoloft) 100 mg PO BEDTIME [facility] Last Admin: 12/30/19 21:10 Dose: 100 mg Documented by: Trazodone HCl (Trazodone) 50 mg PO BEDTIME PRN PRN Reason: Sleep Last Admin: 12/29/19 21:26 Dose: 50 mg Documented by:
== END 2019-12-31 13:04 | disposition home or self-care (01) | DRG 189 ==
LOC: KA.ED 18:17 → KA.MS 21:14 → KA.ED 22:00 → OBSVTOIN 12-29 10:50
PROVIDERS: ADMIT Nurse Practitioner Family; ATTEND Nurse Practitioner Family
DX: J44.1 Chronic obstructive pulmonary disease with (acute) exacerbation (principal); J96.01 Acute respiratory failure with hypoxia; R79.1 Abnormal coagulation profile; R74.0 Nonspecific elevation of levels of transaminase and lactic acid dehydrogenase [LDH]; F10.288 Alcohol dependence with other alcohol-induced disorder; E46 Unspecified protein-calorie malnutrition; E87.2 Acidosis; I73.9 Peripheral vascular disease, unspecified; Z68.1 Body mass index [BMI] 19.9 or less, adult; C85.88 Other specified types of non-Hodgkin lymphoma, lymph nodes of multiple sites; K29.70 Gastritis, unspecified, without bleeding; J43.9 Emphysema, unspecified; Z66 Do not resuscitate; Z86.73 Personal history of transient ischemic attack (TIA), and cerebral infarction without residual deficits; F17.210 Nicotine dependence, cigarettes, uncomplicated; Z20.828 Contact with and (suspected) exposure to other viral communicable diseases; H26.9 Unspecified cataract; Z85.46 Personal history of malignant neoplasm of prostate; Z85.118 Personal history of other malignant neoplasm of bronchus and lung; Z98.890 Other specified postprocedural states; K29.20 Alcoholic gastritis without bleeding; I45.81 Long QT syndrome; I49.3 Ventricular premature depolarization; K59.09 Other constipation; M19.90 Unspecified osteoarthritis, unspecified site; M54.9 Dorsalgia, unspecified; F10.10 Alcohol abuse, uncomplicated; Y90.9 Presence of alcohol in blood, level not specified; G89.29 Other chronic pain; F41.9 Anxiety disorder, unspecified; D64.9 Anemia, unspecified; F32.9 Major depressive disorder, single episode, unspecified; G47.00 Insomnia, unspecified; E87.6 Hypokalemia; R79.89 Other specified abnormal findings of blood chemistry; I20.9 Angina pectoris, unspecified; M54.2 Cervicalgia; E83.42 Hypomagnesemia; E78.5 Hyperlipidemia, unspecified; I20.8 Other forms of angina pectoris; Z72.89 Other problems related to lifestyle; Z88.1 Allergy status to other antibiotic agents; Z88.8 Allergy status to other drugs, medicaments and biological substances; Z79.82 Long term (current) use of aspirin; I25.2 Old myocardial infarction; Z95.5 Presence of coronary angioplasty implant and graft; Z87.01 Personal history of pneumonia (recurrent); Z71.6 Tobacco abuse counseling; Z79.899 Other long term (current) drug therapy; Z79.51 Long term (current) use of inhaled steroids; Z90.89 Acquired absence of other organs
CPT/HCPCS: 36415 ×2; 71045; 71260; 80048; 80053; 82272; 82550; 82553; 83605 ×2; 83735; 83880; 84484; 85025 ×2; 85379; 87040 ×2; 93005; 94640; 96374; 99284; 99285; A9270 ×9; J2930; U0002; C9113; G0378; J7512; J7620-GY

== ENCOUNTER 2020-09-09 16:48 | Emergency (ER) | payer MEDICARE, MEDICAID, OTHER ==
[2020-09-09] MEDS ORDERED: Sodium Chloride 0.9% 10 ML Syringe FLUSH PRN (17:02)
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
--- NOTE | 2020-09-09 17:34 | CR ---
[id number] RAD/RAD Chest PA or AP 1V EXAM: FRONTAL CHEST INDICATION: WEAKNESS. COMPARISON: December 28, 2019. DISCUSSION: Hyperinflation consistent with underlying COPD. No acute infiltrates are identified. Borderline heart size without evidence of edema. No effusions. Chronic left rib fractures. IMPRESSION: 1. No acute findings. Timmy Steen MD 09/10/20 [id number] Thank you for allowing us to participate in the care of your patient.
[2020-09-09 18:01] LABS: ANION GAP 16.1 mmol/L (5-15); CHLORIDE,CL 102 mmol/L (98-107); SODIUM,NA 144 mmol/L (136-145)
[2020-09-09 18:02] VITALS: BP 114/73; PULSE 87
[2020-09-09] MEDS ORDERED: Potassium Chloride 10 MEQ Tab.ER PO ONE (18:10)
== END 2020-09-09 19:00 | disposition home or self-care (01) ==
LOC: KA.ED 16:48
DX: J44.9 Chronic obstructive pulmonary disease, unspecified (principal); F10.10 Alcohol abuse, uncomplicated; M54.5 Low back pain; I25.2 Old myocardial infarction; Z88.8 Allergy status to other drugs, medicaments and biological substances; Z95.5 Presence of coronary angioplasty implant and graft; Y90.2 Blood alcohol level of 40-59 mg/100 ml; Z88.1 Allergy status to other antibiotic agents; Z79.899 Other long term (current) drug therapy; Z72.0 Tobacco use
CPT/HCPCS: 36415; 71045; 80053; 80307; 81003; 82150; 83605; 83690; 84484; 85025; 93005; 99284; 99285-25; A9270-GY

== ENCOUNTER 2021-01-22 19:16 | Emergency (ER) | payer OTHER, MEDICARE, MEDICAID ==
[2021-01-22 20:27] LABS: CHLORIDE,CL 104 mmol/L (98-107); SODIUM,NA 140 mmol/L (138-146)
[2021-01-22] MEDS ORDERED: NS + KCl 20mEq/L 1,000 ML IV SCH (20:45)
[2021-01-22 20:46] LABS: ANION GAP 12.8 mmol/L (5-15)
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
[2021-01-22 23:15] VITALS: BP 112/81; PULSE 68
== END 2021-01-22 23:00 | disposition home or self-care (01) ==
LOC: KA.ED 19:16
DX: J44.9 Chronic obstructive pulmonary disease, unspecified (principal); F10.120 Alcohol abuse with intoxication, uncomplicated; I25.2 Old myocardial infarction; E87.6 Hypokalemia; E46 Unspecified protein-calorie malnutrition; Z68.1 Body mass index [BMI] 19.9 or less, adult; Y90.7 Blood alcohol level of 200-239 mg/100 ml; Z95.5 Presence of coronary angioplasty implant and graft; Z88.1 Allergy status to other antibiotic agents; Z88.8 Allergy status to other drugs, medicaments and biological substances; Z72.0 Tobacco use
CPT/HCPCS: 36415; 80048; 80307; 85025; 93005; 96365; 96366; 99284; 99284-25; J3480

== ENCOUNTER 2021-02-15 11:38 | Emergency (ER) | payer MEDICARE, MEDICAID ==
[2021-02-15] MEDS ORDERED: Sodium Chloride 0.9% 10 ML Syringe FLUSH PRN (11:40)
[2021-02-15] MEDS ORDERED: Ondansetron 4 MG/2 ML SDV IVPUSH ONE (12:01)
[2021-02-15] MEDS ORDERED: HYDROmorphone 1 MG/ML Syringe IVPUSH ONE (12:01)
[2021-02-15 12:23] LABS: ANION GAP 13.8 mmol/L (5-15); CHLORIDE,CL 102 mmol/L (98-107); SODIUM,NA 140 mmol/L (136-145)
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
--- NOTE | 2021-02-15 12:57 | CR ---
[id number] RAD/RAD Hip Left 2-3V; [id number] RAD/RAD Pelvis 1-2V Exam: RAD Hip Left 2-3V, RAD Pelvis 1-2V Indication:PAIN. Comparison: No prior imaging for comparison. Discussion/Impression: Acute fractures of the left superior and inferior pubic rami. Abnormal multidirectional lucency projecting over the left iliac crest as well as the superior margin of the acetabulum. Findings could also represent fracture. No radiographically evident proximal femur fracture. Femoroacetabular articulations are in normal alignment. Noncontrast pelvis CT is recommended to better evaluate pelvic fractures. Riki Sevilla MD 02/15/21 [id number] Thank you for allowing us to participate in the care of your patient.
--- NOTE | 2021-02-15 13:06 | CR ---
[id number] RAD/RAD Chest PA or AP 1V EXAM: RAD Chest PA or AP 1V INDICATION: PAIN. COMPARISON: August 2020. DISCUSSION/IMPRESSION: Lungs demonstrate changes of COPD. These were seen previously and are stable. No evidence of pneumonia. No pleural effusion or pneumothorax. Fracture of a left rib. This correlates with possibly the eighth-ninth rib. There is evidence of mineralized callus formation at the fracture site, more consistent with a subacute healing fracture rather than acute fracture. Finding was not seen on examination from August 2020. Riki Sevilla MD 02/15/21 [id number] Thank you for allowing us to participate in the care of your patient.
--- NOTE | 2021-02-15 13:51 | CT ---
[id number] CT/CT Hip Left WO IV Exam: CT Hip Left WO IV Indication:PAIN. Comparison: Radiograph from today. Discussion/Impression: Acute comminuted fracture of the left iliac bone. Some fragments are slightly displaced in the iliac wing. Fractures involve the iliac crest as well. No involvement of the iliac contribution to the acetabulum. Acute fractures of the superior and inferior pubic rami. Superior pubic ramus fracture is also mildly comminuted with impaction at the fracture site. Fracture extends into the femoroacetabular articulation. 5 mm of step-off at the articular surface (series 2 image 74). Inferior pubis ramus fracture is displaced approximately 9 mm with up to 16 mm of fragment overlap (series 2 image 95). No radiographically evident proximal femur fracture. Femoroacetabular articulation remains in normal alignment. Iliopsoas musculature hematoma overlying the iliac wing. Small amount of hemorrhage extends into the pelvis left of midline as well. No evidence of active bleeding. Incidentally noted is a left pars interarticularis defect at L5. Additionally there is advanced L5-S1 degenerative disc disease with complete loss of disc space resulting in [id number] articulation between L5 and S1 vertebral bodies. Riki Sevilla MD 02/15/21 [id number] Thank you for allowing us to participate in the care of your patient.
[2021-02-15 14:46] VITALS: BP 134/56; PULSE 85
== END 2021-02-15 14:33 ==
LOC: KA.ED 11:38
DX: S32.810A Multiple fractures of pelvis with stable disruption of pelvic ring, initial encounter for closed fracture (principal); I25.2 Old myocardial infarction; J44.9 Chronic obstructive pulmonary disease, unspecified; Z72.0 Tobacco use; Z88.1 Allergy status to other antibiotic agents; Z88.8 Allergy status to other drugs, medicaments and biological substances; W18.30XA Fall on same level, unspecified, initial encounter
CPT/HCPCS: 36415; 51702; 71045; 72170; 73502; 73700; 80053; 81001; 85025; 85610; 85730; 93005; 96374; 96375; 99285; J1170; J2405; 93010; 99284

== ENCOUNTER 2021-09-01 05:35 | Emergency (ER) | payer MEDICARE, OTHER, MEDICAID ==
[2021-09-01 07:29] VITALS: BP 131/84; PULSE 80
== END 2021-09-01 08:05 ==
LOC: KA.ED 05:35
DX: M54.50 Low back pain, unspecified (principal); J44.9 Chronic obstructive pulmonary disease, unspecified; Z86.73 Personal history of transient ischemic attack (TIA), and cerebral infarction without residual deficits; Z88.1 Allergy status to other antibiotic agents; Z88.8 Allergy status to other drugs, medicaments and biological substances; Z79.899 Other long term (current) drug therapy
CPT/HCPCS: 72100; 72170; 99284; 99284-25